=== PATIENT | female | born 1955 | race Caucasian/White ===

== ENCOUNTER 2020-07-14 08:11 | Outpatient (REF) | payer OTHER, SELFPAY ==
[2020-07-17 03:21] LABS: HPV mRNA E6/E7 rflx Not Detected (Not Detected)
== END 2020-07-14 08:12 | disposition home or self-care (01) ==
LOC: HO.LAB 08:11
PROVIDERS: PCP Internal Medicine; Visit Provider Advanced Practice Midwife
DX: Z01.419 Encounter for gynecological examination (general) (routine) without abnormal findings (principal); Z11.51 Encounter for screening for human papillomavirus (HPV)
CPT/HCPCS: 36415; 87624; 88142

== ENCOUNTER 2021-01-15 07:21 | Outpatient (REF) | payer OTHER, SELFPAY ==
[2021-01-15 08:25] LABS: MANUAL DIFF FLAG NO
[2021-01-15 08:32] LABS: Basophils Percent Auto 0.4 % (0-2); Eosinophils Absolute Auto 0.1 X10*3/uL (0.0-0.4); Eosinophils Percent Auto 1.5 % (0-4); Hematocrit 39.4 % (37-47); Hemoglobin 13.2 g/dl (12.0-16.0); Imm Gran Abs Auto 0.02 X10*3/uL (0.00-0.03); Imm Gran Pct Auto 0.4 % (0.0-0.4); Lymphocytes Absolute Auto 2.3 X10*3/uL (1.2-4.9); Lymphocytes Percent Auto 43.4 % (20-40); Mean Corpuscular HGB Conc 33.5 g/dl (31.0-35.0); Mean Corpuscular Hemoglobin 29.4 pg (27.0-33.0); Mean Corpuscular Volume 87.8 fL (80-98); Mean Platelet Volume 10.3 fL (9.4-12.3); Monocytes Absolute Auto 0.5 X10*3/uL (0.1-1.2); Monocytes Percent Auto 9.4 % (2-11); Neutrophils Absolute Auto 2.4 X10*3/uL (2.0-8.3); Neutrophils Percent Auto 44.9 % (45-73); Platelet Count 198 X10*3/uL (160-400); Red Blood Count 4.49 X10*6/uL (4.20-5.50); Red Cell Distribution Width 13.5 % (11.0-16.0); White Blood Count 5.3 X10*3/uL (4.8-10.8)
[2021-01-15 08:37] LABS: Estimated Average Glucose 120 mg/dL; Hemoglobin A1c % 5.8 %
[2021-01-15 09:07] LABS: Alanine Aminotransferase 19 U/L (0-31); Albumin Level 4.1 g/dL (3.5-5.0); Alkaline Phosphatase 91 U/L (39-117); Anion Gap 11 (12-20); Aspartate Amino Transferase 20 U/L (5-31); Bilirubin Total 0.5 mg/dL (0.0-1.0); Blood Urea Nitrogen 14 mg/dL (9-16); Calcium 8.9 mg/dL (8.4-10.2); Carbon Dioxide 24 mmol/L (22-29); Chloride 109 mmol/L (96-108); Cholesterol 193 mg/dL; Estimated Glomerular Filt Rate > 60; Glucose Random 99 mg/dL (60-115); HDL Cholesterol 43 mg/dL; LDL Cholesterol Calculated 129 mg/dl; Potassium 3.9 mmol/L (3.3-5.1); Sodium 140 mmol/L (135-145); Total Protein 7.2 g/dL (6.5-8.0); Triglycerides 106 mg/dL
[2021-01-15 09:19] LABS: Free T4 (Free Thyroxine) 0.89 ng/dL (0.71-1.85)
[2021-01-17 09:36] LABS: Folate 13.5 ng/mL (> or = 4.0); Vitamin B12 321 pg/mL (200-900)
== END 2021-01-15 07:22 | disposition home or self-care (01) ==
LOC: HO.LAB 07:21
PROVIDERS: PCP Internal Medicine; Visit Provider Internal Medicine
DX: E78.00 Pure hypercholesterolemia, unspecified (principal)
CPT/HCPCS: 36415; 80053; 80061; 82306; 82607; 82746; 83036; 84439; 84443; 85025

== ENCOUNTER 2021-06-01 08:10 | Outpatient (REF) | payer OTHER, SELFPAY ==
--- NOTE | ~2021-06-01 | XR_ITS ---
EXAMINATION: XR KNEE, LEFT CLINICAL INFORMATION: Left knee bursitis. COMPARISON: 12/06/2014 TECHNIQUE: AP, lateral, and both oblique views of the left knee. FINDINGS: Joint space narrowing is present in all 3 compartments with associated osteophytes, most pronounced medially. No fractures. Bones are osteopenic. No significant joint effusion. An enthesopathic spur is evident at the quadriceps tendon insertion on the patella. XR/XR knee LT 4V IMPRESSION: Moderate tricompartmental osteoarthritis, most pronounced in the medial compartment.
== END 2021-06-01 08:11 | disposition home or self-care (01) ==
LOC: HO.XRAY 08:10
PROVIDERS: PCP Internal Medicine; Visit Provider Internal Medicine
DX: M70.50 Other bursitis of knee, unspecified knee (principal)
CPT/HCPCS: 73564

== ENCOUNTER → 2021-07-15 07:54 | Outpatient (BNVA) | payer OTHER, SELFPAY | PROVIDERS: PCP Internal Medicine; Visit Provider Advanced Practice Midwife | DX: Z13.89 Encounter for screening for other disorder (principal) ==

== ENCOUNTER 2021-08-02 16:08 | Outpatient (REF) | payer OTHER, SELFPAY ==
--- NOTE | ~2021-08-02 | MM_ITS ---
EXAMINATION: MM SCREENING DIGITAL BREAST TOMOSYNTHESIS, BILATERAL CLINICAL INFORMATION: Screening. Asymptomatic. The lifetime risk of breast cancer based on the Tyrer-Cuzick Model is 5%. COMPARISON: Mammography: 01/12/2020, 10/03/2018, 07/07/2016 TECHNIQUE: Digital breast tomosynthesis is performed in both the craniocaudal and mediolateral oblique views along with computer-aided detection (CAD). Synthesized 2D images are generated from the tomosynthesis. FINDINGS: The breasts are heterogeneously dense, which may obscure small masses (ACR BI-RADS breast composition Category c). There are no significant masses, abnormal calcifications, or other abnormalities. Parenchymal pattern is similar to prior studies. There is no developing density or architectural abnormality. The axilla and skin contours are unremarkable. No significant changes. MM/MM tomosynthesis screening BI IMPRESSION: No mammographic evidence of malignancy. ASSESSMENT: BI-RADS 1: Negative RECOMMENDATION: Routine annual mammography screening. This patient's information was entered into a reminder system with a target due date for their next mammogram.
== END 2021-08-02 16:09 | disposition home or self-care (01) ==
LOC: HO.MAMMO 16:08
PROVIDERS: PCP Internal Medicine; Visit Provider Internal Medicine
DX: Z12.31 Encounter for screening mammogram for malignant neoplasm of breast (principal)
CPT/HCPCS: 77063; 77067

== ENCOUNTER 2021-09-16 15:12 | Outpatient (REF) | payer OTHER, SELFPAY ==
--- NOTE | ~2021-09-16 | XR_ITS ---
EXAMINATION: XR CHEST CLINICAL INFORMATION: Acute bronchitis COMPARISON: Previous chest x-ray October 2018 TECHNIQUE: 2 views of the chest were obtained. FINDINGS: No significant abnormality is noted involving the heart, lungs, mediastinum, bony thorax or soft tissues. XR/XR chest 2V IMPRESSION: Unremarkable 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
[2021-09-16 15:43] LABS: Binax Internal Control QC Valid; Binax Now Covid-19 Ag Negative (Negative)
== END 2021-09-16 15:13 | disposition home or self-care (01) ==
LOC: HO.HMGCX 15:12
PROVIDERS: Visit Provider Internal Medicine
DX: J06.9 Acute upper respiratory infection, unspecified (principal); J20.9 Acute bronchitis, unspecified
CPT/HCPCS: 71046; 87811

== ENCOUNTER 2022-01-04 08:22 | Outpatient (REF) | payer OTHER, SELFPAY ==
[2022-01-04 08:39] LABS: MANUAL DIFF FLAG NO
[2022-01-04 09:08] LABS: Basophils Percent Auto 0.3 % (0-2); Eosinophils Absolute Auto 0.1 X10*3/uL (0.0-0.4); Hematocrit 39.7 % (37.0-47.0); Hemoglobin 13.3 g/dl (12.0-16.0); Imm Gran Abs Auto 0.01 X10*3/uL (0.00-0.03); Imm Gran Pct Auto 0.2 % (0.0-0.4); Lymphocytes Absolute Auto 2.9 X10*3/uL (1.2-4.9); Lymphocytes Percent Auto 50.5 % (20-40); Mean Corpuscular HGB Conc 33.5 g/dl (31.0-35.0); Mean Corpuscular Hemoglobin 29.1 pg (27.0-33.0); Mean Corpuscular Volume 86.9 fL (80.0-98.0); Mean Platelet Volume 10.6 fL (9.4-12.3); Monocytes Absolute Auto 0.6 X10*3/uL (0.1-1.2); Monocytes Percent Auto 10.1 % (2-11); Neutrophils Absolute Auto 2.2 x10*3/uL (2.0-8.3); Neutrophils Percent Auto 37.9 % (45-73); Platelet Count 184 X10*3/uL (160-400); Red Blood Count 4.57 X10*6/uL (4.20-5.50); Red Cell Distribution Width 13.1 % (11.0-16.0); White Blood Count 5.7 X10*3/uL (4.8-10.8)
[2022-01-04 09:15] LABS: Estimated Average Glucose 117 mg/dL; Hemoglobin A1c % 5.7 %
[2022-01-04 09:46] LABS: Alanine Aminotransferase 24 U/L (0-31); Albumin Level 4.1 g/dL (3.5-5.0); Alkaline Phosphatase 90 U/L (39-117); Anion Gap 12 (12-20); Aspartate Amino Transferase 20 U/L (5-31); Bilirubin Direct 0.2 mg/dL (0.0-0.5); Bilirubin Total 0.5 mg/dL (0.0-1.0); Blood Urea Nitrogen 15 mg/dL (9-16); Carbon Dioxide 26 mmol/L (22-29); Chloride 106 mmol/L (96-108); Estimated Glomerular Filt Rate > 60; Glucose Random 90 mg/dL (60-115); Sodium 140 mmol/L (135-145); Total Protein 7.5 g/dL (6.5-8.0)
[2022-01-04 09:54] LABS: Free T4 (Free Thyroxine) 0.88 ng/dL (0.71-1.85); Thyroid Stimulating Hormone 1.39 uIU/mL (0.32-4.0); Vitamin D 25-OH Total 31.6 ng/mL (>30)
[2022-01-04 10:03] LABS: Folate 16.8 ng/mL (> or = 4.0); Vitamin B12 377 pg/mL (200-900)
== END 2022-01-04 08:23 | disposition home or self-care (01) ==
LOC: HO.LAB 08:22
PROVIDERS: PCP Internal Medicine; Visit Provider Internal Medicine
DX: E78.00 Pure hypercholesterolemia, unspecified (principal); R79.89 Other specified abnormal findings of blood chemistry; R73.02 Impaired glucose tolerance (oral)
CPT/HCPCS: 36415; 80053; 82248; 82306; 82607; 82746; 83036; 84439; 84443; 85025

== ENCOUNTER 2022-07-03 07:36 | Outpatient (REF) | payer OTHER, SELFPAY ==
--- NOTE | ~2022-07-03 | XR_ITS ---
EXAMINATION: X-RAY OF BOTH KNEES CLINICAL INFORMATION: 66-year-old female patient with pain in the right knee. COMPARISON: X-ray of the left knee on 06/01/2021. (Moderate tricompartmental osteoarthritis). TECHNIQUE: AP and lateral weightbearing views of both knees. FINDINGS: Both knees demonstrate moderate joint space narrowing and juxta-articular sclerosis involving the medial joint compartments worse on the left than right. Marginal hypertrophic spur formation is seen bilaterally. Both patellofemoral joints show degenerative changes and enthesophytes at the quadriceps insertions. There is no joint effusion. XR/XR knee RT 2V IMPRESSION: Osteoarthritis of both knees, slightly worse on the left than right.
--- NOTE | ~2022-07-03 | XR_ITS ---
EXAMINATION: X-RAY OF BOTH KNEES CLINICAL INFORMATION: 66-year-old female patient with pain in the right knee. COMPARISON: X-ray of the left knee on 06/01/2021. (Moderate tricompartmental osteoarthritis). TECHNIQUE: AP and lateral weightbearing views of both knees. FINDINGS: Both knees demonstrate moderate joint space narrowing and juxta-articular sclerosis involving the medial joint compartments worse on the left than right. Marginal hypertrophic spur formation is seen bilaterally. Both patellofemoral joints show degenerative changes and enthesophytes at the quadriceps insertions. There is no joint effusion. XR/XR knee LT 2V IMPRESSION: Osteoarthritis of both knees, slightly worse on the left than right.
[2022-07-03 07:46] LABS: MANUAL DIFF FLAG NO
[2022-07-03 08:15] LABS: Appearance Urine Clear; Color Urine Yellow; Glucose Urine UA Negative (Negative); Leukocyte Esterase Urine Small (1+) (Negative); Nitrite Urine Negative (Negative); Specific Gravity - Urine 1.015 (1.005-1.025); UMIC TRIGGER UA YES; Urine Blood Negative (Negative); Urine Ketones Negative (Negative); Urine Protein Negative (Neg-Trace)
[2022-07-03 08:20] LABS: Bacteria Urine Trace (None Seen); Hyaline Casts Urine 0-2 /LPF (0-2); RBC Urine 0-2 /HPF (0-2)
[2022-07-03 08:25] LABS: Basophils Percent Auto 0.6 % (0-2); Eosinophils Absolute Auto 0.1 X10*3/uL (0.0-0.4); Eosinophils Percent Auto 1.3 % (0-4); Hematocrit 41.8 % (37.0-47.0); Hemoglobin 13.7 g/dl (12.0-16.0); Imm Gran Abs Auto 0.01 X10*3/uL (0.00-0.03); Imm Gran Pct Auto 0.2 % (0.0-0.4); Mean Corpuscular HGB Conc 32.8 g/dl (31.0-35.0); Mean Corpuscular Hemoglobin 28.5 pg (27.0-33.0); Mean Corpuscular Volume 87.1 fL (80.0-98.0); Mean Platelet Volume 10.7 fL (9.4-12.3); Monocytes Absolute Auto 0.5 X10*3/uL (0.1-1.2); Monocytes Percent Auto 10.1 % (2-11); Neutrophils Absolute Auto 2.2 x10*3/uL (2.0-8.3); Neutrophils Percent Auto 45.8 % (45-73); Platelet Count 197 X10*3/uL (160-400); Red Cell Distribution Width 13.2 % (11.0-16.0); White Blood Count 4.8 X10*3/uL (4.8-10.8)
[2022-07-03 08:49] LABS: Alanine Aminotransferase 20 U/L (0-31); Albumin Level 4.1 g/dL (3.5-5.0); Alkaline Phosphatase 100 U/L (39-117); Anion Gap 12 (12-20); Aspartate Amino Transferase 18 U/L (5-31); Bilirubin Total 0.5 mg/dL (0.0-1.0); Blood Urea Nitrogen 18 mg/dL (9-16); Calcium 9.4 mg/dL (8.4-10.2); Carbon Dioxide 25 mmol/L (22-29); Chloride 108 mmol/L (96-108); Cholesterol 195 mg/dL; Estimated Glomerular Filt Rate > 60; Glucose Random 98 mg/dL (60-115); HDL Cholesterol 44 mg/dL; LDL Cholesterol Calculated 132 mg/dl; Potassium 4.5 mmol/L (3.3-5.1); Sodium 140 mmol/L (135-145); Total Protein 7.3 g/dL (6.5-8.0); Triglycerides 96 mg/dL; Uric Acid 4.9 mg/dL (2.4-5.7)
[2022-07-03 09:22] LABS: Folate 16.7 ng/mL (> or = 4.0); Free T4 (Free Thyroxine) 0.81 ng/dL (0.71-1.85); Thyroid Stimulating Hormone 2.47 uIU/mL (0.32-4.0); Vitamin B12 411 pg/mL (200-900); Vitamin D 25-OH Total 19.2 ng/mL (>30)
== END 2022-07-03 07:37 | disposition home or self-care (01) ==
LOC: HO.XRAY 07:36
PROVIDERS: PCP Internal Medicine; Visit Provider Internal Medicine
DX: M17.12 Unilateral primary osteoarthritis, left knee (principal); M25.561 Pain in right knee; E78.00 Pure hypercholesterolemia, unspecified
CPT/HCPCS: 36415; 73560; 80053; 80061; 81001; 82306; 82607; 82746; 84439; 84443; 84550; 85025

== ENCOUNTER 2022-07-12 07:39 | Outpatient (REF) | payer OTHER, SELFPAY ==
--- NOTE | ~2022-07-12 | XR_ITS ---
EXAMINATION: XR KNEE AP STANDING XR KNEE, LEFT XR KNEE, RIGHT CLINICAL INFORMATION: Knee pain COMPARISON: X-ray left knee from 06/01/2021 and x-ray bilateral knees from 12/08/2014 TECHNIQUE: AP bilateral standing view of the knees was obtained. [place] view the left knee. [place] view of the right knee. FINDINGS: Joint space narrowing and osteophyte formation is seen within the bilateral femoral tibial joints, more prominent within the medial compartments, consistent with moderate osteoarthritis. [place] views of the bilateral knees demonstrates osteophyte formation along the medial compartments of the bilateral patellofemoral joints. XR/XR knee RT 1V IMPRESSION: Moderate osteoarthritis. Findings have progressed compared to the prior exam
--- NOTE | ~2022-07-12 | XR_ITS ---
EXAMINATION: XR KNEE AP STANDING XR KNEE, LEFT XR KNEE, RIGHT CLINICAL INFORMATION: Knee pain COMPARISON: X-ray left knee from 06/01/2021 and x-ray bilateral knees from 12/08/2014 TECHNIQUE: AP bilateral standing view of the knees was obtained. [place] view the left knee. [place] view of the right knee. FINDINGS: Joint space narrowing and osteophyte formation is seen within the bilateral femoral tibial joints, more prominent within the medial compartments, consistent with moderate osteoarthritis. [place] views of the bilateral knees demonstrates osteophyte formation along the medial compartments of the bilateral patellofemoral joints. XR/XR knee LT 1V IMPRESSION: Moderate osteoarthritis. Findings have progressed compared to the prior exam
--- NOTE | ~2022-07-12 | XR_ITS ---
EXAMINATION: XR KNEE AP STANDING XR KNEE, LEFT XR KNEE, RIGHT CLINICAL INFORMATION: Knee pain COMPARISON: X-ray left knee from 06/01/2021 and x-ray bilateral knees from 12/08/2014 TECHNIQUE: AP bilateral standing view of the knees was obtained. [place] view the left knee. [place] view of the right knee. FINDINGS: Joint space narrowing and osteophyte formation is seen within the bilateral femoral tibial joints, more prominent within the medial compartments, consistent with moderate osteoarthritis. [place] views of the bilateral knees demonstrates osteophyte formation along the medial compartments of the bilateral patellofemoral joints. XR/XR knee standing BI IMPRESSION: Moderate osteoarthritis. Findings have progressed compared to the prior exam
== END 2022-07-12 07:40 | disposition home or self-care (01) ==
LOC: HO.HOSX 07:39
PROVIDERS: Visit Provider Physician Assistant
DX: M17.0 Bilateral primary osteoarthritis of knee (principal)
CPT/HCPCS: 73560; 73565; 99202

== ENCOUNTER → 2022-07-17 08:03 | Outpatient (BNVA) | payer OTHER, SELFPAY | PROVIDERS: Visit Provider Advanced Practice Midwife ==

== ENCOUNTER 2022-08-25 08:02 | Outpatient (REF) | payer OTHER, SELFPAY ==
--- NOTE | ~2022-08-25 | MM_ITS ---
EXAMINATION: MM SCREENING DIGITAL BREAST TOMOSYNTHESIS, BILATERAL CLINICAL INFORMATION: Screening. Asymptomatic. The lifetime risk of breast cancer based on the Tyrer-Cuzick Model is 5%. COMPARISON: Mammography: 08/02/2021, 01/12/2020, 10/03/2018, 07/07/2016, 03/15/2011 TECHNIQUE: Digital breast tomosynthesis is performed in both the craniocaudal and mediolateral oblique views along with computer-aided detection (CAD). Synthesized 2D images are generated from the tomosynthesis. FINDINGS: The breasts are heterogeneously dense, which may obscure small masses (ACR BI-RADS breast composition Category c). The left breast has focal asymmetric density anterior to mid 6:00 position under 1.5 cm representing change from prior studies. There is a prominent left axillary node on MLO view 20 cm from nipple. Patient will be recalled for additional imaging. The remainder of the bilateral breasts appear similar to prior studies. Right breast unremarkable. There are no abnormal calcifications. No skin thickening. MM/MM tomosynthesis screening BI IMPRESSION: Left: -Focal asymmetric density anterior-mid 6:00 representing change from prior studies. -Prominent left axillary node. Right: -No mammographic evidence of malignancy. ASSESSMENT: BI-RADS 0: Incomplete - Need Additional Imaging Evaluation RECOMMENDATION: 1. Additional views left breast (rolled CC x2, spot ML). 2. Targeted ultrasound left breast and axilla. 3. Radiology department staff will contact the patient for additional imaging. This patient's information was entered into a reminder system with a target due date for their next mammogram.
== END 2022-08-25 08:03 | disposition home or self-care (01) ==
LOC: HO.MAMMO 08:02
PROVIDERS: PCP Internal Medicine; Visit Provider Obstetrics & Gynecology
DX: Z12.31 Encounter for screening mammogram for malignant neoplasm of breast (principal)
CPT/HCPCS: 77063; 77067

== ENCOUNTER 2022-09-20 07:52 | Outpatient (REF) | payer OTHER, SELFPAY ==
--- NOTE | ~2022-09-20 | MM_ITS ---
EXAMINATION: MM DIAGNOSTIC DIGITAL BREAST TOMOSYNTHESIS, LEFT US DIAGNOSTIC ULTRASOUND BREAST, LEFT CLINICAL INFORMATION: Recall from screening for focal asymmetric density anterior inferior left breast with prominent left axillary node. TC score 5%. COMPARISON: Prior mammography exams including most recent 08/25/2022. TECHNIQUE: Digital breast tomosynthesis is performed. 2D images are generated from the tomosynthesis. The following views are obtained: Rolled CC x2, spot ML. Ultrasound of the left breast and left axillary is performed targeted to the areas of mammography concern. Grayscale imaging and color Doppler are performed without and with harmonics. FINDINGS: The breasts are heterogeneously dense, which may obscure small masses (ACR BI-RADS breast composition Category c). The additional views confirm irregular focal asymmetric density anterior inferior breast at least 1 cm in size with probable adjacent smaller satellite lesion. Ultrasound demonstrates a irregular heterogeneous solid mass 5:00 position retroareolar breast measuring approximately 1.6 x 1.2 cm. There is some scattered internal color-flow. No significant posterior shadowing. There are 2 adjacent similar appearing satellite lesions within 2 cm, measuring approximately 0.9 cm and 0.5 cm, respectively. Ultrasound left axilla confirms a 3 cm long node with thick cortex corresponding to the node on mammography. Results are discussed with the patient at time of visit. Ultrasound-guided core sampling of the left breast and left axillary node is recommended. Results and recommendation called to medical billing coordinator (Ann Marie) for Dr. Talbot on 09/20/2022. Results and recommendation called to nurse (AGNIESZKA Schneider) for Amy Weir CNM on 09/20/2022. MM/MM tomosynthesis added views L IMPRESSION: -Irregular hypoechoic mass 1.6 cm anterior inferior left breast with 2 smaller adjacent satellite lesions and left axillary adenopathy. ASSESSMENT: BI-RADS 4: Suspicious (subcategory 4C: High suspicion for malignancy) RECOMMENDATION: Ultrasound-guided core biopsy left breast mass and left axilla. This patient's information was entered into a reminder system with a target due date for their next mammogram.
== END 2022-09-20 07:53 | disposition home or self-care (01) ==
LOC: HO.MAMMO 07:52
PROVIDERS: PCP Internal Medicine; Visit Provider Advanced Practice Midwife
DX: R92.2 Inconclusive mammogram (principal)
CPT/HCPCS: 76642; 77061; 77065

== ENCOUNTER 2022-09-26 09:32 | Outpatient (REF) | payer OTHER, SELFPAY ==
--- NOTE | ~2022-09-26 | US_ITS ---
EXAMINATION: ULTRASOUND GUIDED CORE BIOPSY BREAST (TWO SITES), LEFT ULTRASOUND GUIDED CORE BIOPSY AXILLA, LEFT POST PROCEDURE DIGITAL MAMMOGRAM, LEFT CLINICAL INFORMATION: Irregular hypoechoic mass 1.6 cm anterior inferior left breast with adjacent satellite nodules and left axillary adenopathy. COMPARISON: Mammography 09/20/2022, 08/25/2022, 08/02/2021, left breast ultrasound 09/20/2022. FINDINGS: Proper informed consent is obtained from the patient after discussion of the procedure, potential risks and complications, and alternatives. Patient was given an opportunity for questions. The patient appeared to understand. The patient consented to the procedure and signed the consent form. LEFT BREAST, SPECIMEN A: LOCATION: Anterior inferior central left breast. GUIDANCE: Ultrasound-guided; aseptic technique. LESION: Irregular hypoechoic mass approximately 1.6 cm. APPROACH: Lateral medial. ANESTHESIA: 10 mL carbonated 1% lidocaine. DERMATOTOMY: Single skin yoshi dermatotomy performed. NEEDLE: 14-gauge Achieve core biopsy device with 13.5-gauge co-axial guide needle. CORES: 5. CLIP: HydroMARK; shape: open coil. LEFT BREAST, SPECIMEN B: New anesthesia and biopsy supplies are used. LOCATION: Anterior inferior central left breast approximately 2 cm from specimen A. GUIDANCE: Ultrasound-guided; aseptic technique. LESION: Irregular hypoechoic satellite mass approximately 1 cm. APPROACH: Lateral medial. ANESTHESIA: 7 mL carbonated 1% lidocaine. DERMATOTOMY: The same skin yoshi dermatotomy site from the first lesion is used to access the lesion for the second biopsy.. NEEDLE: 14-gauge Achieve core biopsy device with 13.5-gauge co-axial guide needle. CORES: 4. CLIP: HydroMARK; shape: butterfly. LEFT AXILLA SPECIMEN: New anesthesia and biopsy supplies are used. LOCATION: Left axilla, approximately 19 cm from nipple. GUIDANCE: Ultrasound-guided; aseptic technique. LESION: Enlarged axillary node with thick cortex. APPROACH: Oblique lateral medial. ANESTHESIA: 8 mL carbonated 1% lidocaine. DERMATOTOMY: A new skin yoshi dermatotomy is performed to allow for the second site of biopsy. . NEEDLE: 14-gauge Achieve core biopsy device with 13.5-gauge co-axial guide needle. CORES: 4. CLIP: HydroMARK; shape: barrel (closed coil). POST PROCEDURE DIGITAL MAMMOGRAM: The post biopsy mammogram is performed in separate room using separate digital mammography equipment from the biopsy procedure. CC, exaggerated CC, ML x2 views are obtained. The breasts are heterogeneously dense, which may obscure small masses (breast composition category: c). The 3 clip markers are in position. No gross hematoma. The patient tolerated the procedure well. No immediate complications. Home instructions reviewed with the patient. Final pathology results are pending. US/US breast ndl core bio ea add IMPRESSION: 1. Status post ultrasound-guided core biopsy left breast x 2 and left axilla. 2. Clips placed at each of the 3 sites. 3. Pathology pending. An addendum report will be issued.
[2022-09-26] MEDS: Sodium Bicarbonate 8.4% 50 MEQ/50 ML VIAL SUBCUT (13:48)
[2022-09-26] MEDS: Lidocaine HCl 1 % 20 ML VIAL 27 ML SUBCUT (13:48)
== END 2022-09-26 09:33 | disposition home or self-care (01) ==
LOC: HO.MAMMO 09:32
PROVIDERS: Radiology Diagnostic Radiology; PCP Internal Medicine; Visit Provider Surgery
DX: C50.512 Malignant neoplasm of lower-outer quadrant of left female breast (principal); C77.3 Secondary and unspecified malignant neoplasm of axilla and upper limb lymph nodes; Z17.0 Estrogen receptor positive status [ER+]
CPT/HCPCS: 19083; 19084; 19286; 36415; 38505; 76942; 77062; 77065; 88305; 88342; 88360; 88374; 88377; 99202; A4648

== ENCOUNTER → 2022-10-03 09:13 | Outpatient (BNVA) | payer OTHER, SELFPAY | PROVIDERS: PCP Internal Medicine; Visit Provider Surgery | DX: C50.912 Malignant neoplasm of unspecified site of left female breast (principal) | CPT/HCPCS: 99212 ==

== ENCOUNTER → 2022-10-19 10:00 | Outpatient (BNV) | payer OTHER, SELFPAY | PROVIDERS: PCP Internal Medicine; Visit Provider Internal Medicine Medical Oncology | DX: C50.812 Malignant neoplasm of overlapping sites of left female breast (principal) | CPT/HCPCS: 99204; 99212; 99213; 99214 ==

== ENCOUNTER → 2022-10-27 07:52 | Outpatient (REF) | payer OTHER, SELFPAY | LOC: HO.CARD 07:52 | PROVIDERS: PCP Internal Medicine; Visit Provider Internal Medicine Medical Oncology | DX: C50.919 Malignant neoplasm of unspecified site of unspecified female breast (principal) | CPT/HCPCS: 93306 ==

== ENCOUNTER 2022-11-06 08:49 | Day surgery (SDC) | payer OTHER, SELFPAY ==
--- NOTE | ~2022-11-06 | IR_ITS ---
PROCEDURE: IR INSERTION OF TUNNEL CATHETER CLINICAL INFORMATION: Left breast cancer COMPARISON: None available. TECHNIQUE: Procedure and risks and benefits including bleeding, infection and pneumothorax were discussed with the patient and informed consent was obtained. All elements of maximal sterile barrier technique followed including use of cap, mask, sterile gown, sterile gloves, a sterile full body drape and hand hygiene. Also followed skin preparation with 2% chlorhexidine for cutaneous antisepsis, and sterile ultrasound preparation with sterile gel and probe cover when applicable. The right neck and chest were prepped and draped in the usual sterile fashion. The skin and soft tissues were anesthetized with 1% lidocaine plain. Using ultrasound guidance and a 5 Ethiopian micropuncture system, right internal jugular vein access was obtained. Over an 018 wire, a 5 Ethiopian dilator was positioned in the SVC. The skin and soft tissues of the right upper anterior chest were anesthetized with 1% lidocaine. A small incision was made. A subcutaneous pocket was created using blunt dissection. Subcutaneous tunnel from the chest to the neck incision was anesthetized with 1% lidocaine plain. Using a tunneler, a 6.6 Ethiopian single-lumen catheter was tunneled from the chest to the neck incision. The catheter was attached to the port. The port and catheter were flushed. The port was positioned in the subcutaneous pocket and secured using 2 2.0 nonabsorbable sutures. An 035 guidewire was advanced through the 5-Ethiopian dilator into the IVC. The 5 Ethiopian dilator was exchanged for a 7 Ethiopian peel-away sheath. Using bent wire technique, catheter length was estimated and the catheter was cut. Catheter length is 21 cm. Catheter was fed centrally through the peel-away sheath. Catheter tip is at the cavoatrial junction. The neck incision was closed using a 4-0 absorbable subcuticular suture. The chest incision was closed using four 3-0 absorbable interrupted sutures followed by a running 4-0 absorbable subcuticular suture. Real-time ultrasound guidance was used to document vein patency and for needle entry. A formal ultrasound picture was recorded. The patient received Versed 1 mg and fentanyl 50 mcg and Kefzol 2 g intravenously during the procedure. Total sedation time was 46 minutes. Conscious sedation was provided by a registered nurse under my direct supervision using continuous hemodynamic monitoring. Total [id number] patient contact time was 34 minutes. Fluoroscopy time: 0.2 minutes DAP: 18 CG Y per centimeter squared FINDINGS: There is a right single lumen 6.6 Ethiopian single-lumen Dignity Port-A-Cath with tip projecting over the cavoatrial junction. IR/IR cvc insert tunnel w prt/bioassayist IMPRESSION: Right internal jugular Port-A-Cath placement.
[2022-11-06 09:26] VITALS: BMI 32.4
[2022-11-06 09:40] LABS: Basophils Percent Auto 0.4 % (0-2); Eosinophils Absolute Auto 0.1 X10*3/uL (0.0-0.4); Eosinophils Percent Auto 1.7 % (0-4); Hematocrit 40.8 % (37.0-47.0); Hemoglobin 13.6 g/dl (12.0-16.0); Imm Gran Abs Auto 0.01 X10*3/uL (0.00-0.03); Imm Gran Pct Auto 0.2 % (0.0-0.4); Lymphocytes Absolute Auto 2.8 X10*3/uL (1.2-4.9); MANUAL DIFF FLAG NO; Mean Corpuscular HGB Conc 33.3 g/dl (31.0-35.0); Mean Corpuscular Hemoglobin 29.1 pg (27.0-33.0); Mean Corpuscular Volume 87.2 fL (80.0-98.0); Mean Platelet Volume 9.9 fL (9.4-12.3); Monocytes Absolute Auto 0.5 X10*3/uL (0.1-1.2); Monocytes Percent Auto 9.7 % (2-11); Platelet Count 192 X10*3/uL (160-400); Red Blood Count 4.68 X10*6/uL (4.20-5.50); White Blood Count 5.5 X10*3/uL (4.8-10.8)
[2022-11-06 09:47] LABS: Prothrombin Time 11.3 SEC (10.0-13.1)
[2022-11-06 09:50] LABS: Partial Thromboplastin Time 33.5 SEC (26.0-36.4)
[2022-11-06] MEDS: Heparin Sodium,Porcine Flush 500 UNIT/5 ML SYRINGE IVFLUSH (11:37)
[2022-11-06] MEDS: Lidocaine HCl 1%/Epi 1:100,000 10 ML VIAL INFILTRATI (11:38)
[2022-11-06] MEDS: Lidocaine HCl 1 % MPF 2 ML VIAL 6 ML INFILTRATI (11:38)
[2022-11-06 12:15] VITALS: BP 146/76; PULSE 63; RESP 14; TEMP 37.2; O2SAT 96
[2022-11-06 12:30] VITALS: BP 122/76; PULSE 63; RESP 16; O2SAT 96
[2022-11-06 12:45] VITALS: BP 138/72; PULSE 63; RESP 16; O2SAT 97
[2022-11-06 13:00] VITALS: BP 144/80; PULSE 73; RESP 16; TEMP 37.3; O2SAT 97
== END 2022-11-06 13:12 | disposition home or self-care (01) ==
LOC: HO.SSS 08:50
PROVIDERS: Radiology Diagnostic Radiology; PCP Internal Medicine; Visit Provider Radiology Diagnostic Radiology
DX: Z45.2 Encounter for adjustment and management of vascular access device (principal); C50.512 Malignant neoplasm of lower-outer quadrant of left female breast; Z17.0 Estrogen receptor positive status [ER+]; F41.1 Generalized anxiety disorder; E78.00 Pure hypercholesterolemia, unspecified; Z79.899 Other long term (current) drug therapy
CPT/HCPCS: 36415; 36561; 85025; 85610; 85730; 99152; 99153; C1769; C1788; J0690; J1642; J2250; J3010

== ENCOUNTER → 2022-11-06 10:14 | Outpatient (BNV) | payer OTHER, SELFPAY | PROVIDERS: PCP Internal Medicine; Visit Provider Radiology Diagnostic Radiology | DX: D05.02 Lobular carcinoma in situ of left breast (principal) | CPT/HCPCS: 36561; 76937 ==

== ENCOUNTER 2022-11-10 08:07 | Outpatient (AMB) | payer OTHER, SELFPAY ==
--- NOTE | 2022-11-10 08:22 | AM.OFFWIN_ITS ---
Intake Vital Signs 11/10/22 08:24 BP 130/90 H Blood Pressure Location Rt brachial Position Sitting Pulse 80 Pulse Source Pulse Oximeter Pulse Oximetry (%) 98 Oxygen Delivery Method Room Air Intake Visit Reasons: EP help changing bandages (lobby) Intake Note: Patient here to have bandages changed. Patient Tobacco Use Status: Never used Tobacco Allergies seafood Allergy (Mild, Verified 11/10/22 08:24) Swelling ephedrine [From Primatene] Adverse Reaction (Severe, Verified 11/10/22 08:24) Shortness of Breath/Asthma Attack diphenhydramine [From Benadryl] Adverse Reaction (Intermediate, Verified 11/10/22 08:24) Shortness of Breath shellfish derived Adverse Reaction (Mild, Verified 11/10/22 08:24) Muscle Pain HPI HPI Comments History of Present Illness Details This is a 66-year-old female who presents to the office today for a wound check. Patient states she had a PermCath placed 3 days ago. Her helps her take about the monitor here yesterday in some of the bandages fell off. She is here requesting help to replace bandages. [facility] Medical History Allergic rhinitis Anxiety Asthma Fatty liver Gallbladder polyp Hypercholesterolemia Lactose intolerance Lumbar degenerative disc disease Obesity (BMI 30-39.9) Osteoarthritis of knee Osteopenia Overweight (BMI 25.0-29.9) Vitamin D deficiency Surgical History History of hysterectomy, supracervical Family History Father Diabetes Mother No problems noted. 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 Sexual orientation: Straight/Heterosexual Gender identity: Female Cognitive needs: No Hearing needs: No Vision needs: Yes Female Reproductive History Menstrual Age of Menarche: 15 Review of Systems Const All systems reviewed & are unremarkable except as noted in HPI and below Eyes Reports no additional complaints ENT Reports no additional complaints Card Reports no additional complaints Resp Reports no additional complaints GI Reports no additional complaints Reports no additional complaints Musc Reports no additional complaints Skin/Breast Reports wounds Neuro Reports no additional complaints Psych Reports no additional complaints Endo Reports no additional complaints Darwin/Lymph Reports no additional complaints Aller/Immun Reports no additional complaints Physical Exam Vital Signs: Last Vital Signs Pulse 80 11/10/22 08:24 BP 130/90 H 11/10/22 08:24 Pulse Ox 98 11/10/22 08:24 Oxygen Delivery Method Room Air 11/10/22 08:24 Const General: cooperative and no acute distress Orientation/consciousness: patient oriented x3 HEENT Head: Yes normal to inspection Ears: hearing grossly normal bilaterally General nose exam: Normal external nose present Face and sinus: Yes normal facial exam Mouth: Normal oral and palatal mucosa present Chest Other: There are 2 incisions to the right anterior chest wall with Steri-Strips in place. These incisions are clean dry and intact. No evidence of purulent drainage or surrounding erythema. Cardio Rate: regular rate Rhythm: regular rhythm GI Inspection: Yes normal to inspection Auscultation: normal bowel sounds Skin Trauma: laceration Neuro General: patient oriented x3 Assessment & Plan Assessment & Plan (1) Visit for wound check: Code(s): Z51.89 - Encounter for other specified aftercare Plan This is a 66-year-old female presenting to the office today for wound check. Patient had a PermCath placed 4 days ago and some of the bandages fell off after taking about last night. Patient requesting help with replacing the bandages. Patient Steri-Strips are in place. Her wounds are clean, dry, and intact without evidence of purulence drainage or erythema. The old gauze and Tegaderm were removed and replaced with new Gauze and new Tegaderm. Patient advised to follow-up here for any drainage. Patient advised to keep the area dry. Medications: Discontinued gabapentin 300 mg PO DAILY 90 days 90 caps 3RF montelukast 10 mg PO DAILY 90 caps 2RF Coding Level of Care Code Est Pt Level 3 (68108) Diagnoses Visit for wound check Z51.89
[2022-11-10 08:24] VITALS: BP 130/90; PULSE 80; O2SAT 98
== END 2022-11-10 09:17 | disposition home or self-care (01) ==
PROVIDERS: PCP Internal Medicine; Visit Provider Physician Assistant Medical
DX: Z51.89 Encounter for other specified aftercare (principal)
CPT/HCPCS: 99213

== ENCOUNTER 2022-11-18 10:57 | Outpatient (REF) | payer OTHER, SELFPAY ==
--- NOTE | ~2022-11-18 | MR_ITS ---
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 COMPARISON: Biopsy images 09/26/2022 TECHNIQUE: Imaging was performed with a dedicated breast coil. Prior to the administration of contrast, bilateral axial T1 and bilateral axial T2 weighted sequences were obtained. After the uneventful administration of?9 mL of Gadavist, dynamic contrast-enhanced VIBRANT series through the breasts in the axial plane were performed. Subtracted images were performed and reviewed. A delayed sagittal sequence through both breasts was acquired. Additionally, CAD post-processing, including maximum intensity projections, 3-D reconstructions and kinetic analysis, were performed an independent workstation and reviewed by the interpreting radiologist is a portion of this exam. FINDINGS: The patient's fibroglandular tissue demonstrates moderate background enhancement. LEFT BREAST: In the 6:00 position, 4.5 cm from the nipple, there is an irregular mass with biopsy clip artifact corresponding to the recently diagnosed malignancy measuring 1.5 (AP) by 1.4 (transverse) by 1.3 (CC) CM. The closest skin margin is inferior at a distance of 2.1 cm. The distance to the pectoralis fashion a is 7. 6:00 PM. (Image 66, series 100). The kinetics are predominately type II or plateau-type enhancement. Approximately 1.5 cm anterior to the known malignancy there is a second area of suspicious enhancement measuring at least 1.2 cm located at 5:00, 3.2 cm from the nipple (image 72, series 100). This finding most likely corresponds to the solid mass demonstrated on the recent diagnostic ultrasound evaluation labeled 7:00, one CM from the nipple. The kinetics are mixed including type I and type II enhancement. Additional foci of enhancement just medial to this area are also suspicious for other areas of malignancy. A rounded satellite lesion located lateral to the larger area of enhancement measuring 4 mm in size is also documented on the recent ultrasound evaluation. When the additional areas of enhancement are included with the main area of known malignancy in the total area of involvement measures at least 3.5 cm in size. The expected transverse dimension is 3.1 cm. The most anterior area of suspicious enhancement is located approximately 2 cm from the nipple. No other abnormal enhancement elsewhere within the left breast. RIGHT BREAST: Evaluation is limited by motion artifact. No definite suspicious masslike or non-masslike enhancement. No abnormal skin thickening or nipple retraction. No abnormal architectural distortion. Review of the T2 weighted images demonstrates no fibrocystic changes or dilated ducts. Review of kinetic images reveals no additional findings. There is no suspicious right-sided internal mammary chain or axillary adenopathy. Abnormal known metastatic left axillary lymph node demonstrated measuring up to 2.1 cm in size. No other definite morphologically abnormal left axillary lymph nodes. Limited views of the chest and abdomen are unremarkable. MR/MR breast BI wo/w con IMPRESSION: 1. Known left breast cancer, 6:00 position with additional areas of suspicious enhancement located anterior to the index malignancy. If breast conservation treatment is planned, consider bracketed wire localization using ultrasound to ensure inclusion of anterior areas of abnormal enhancement. If neoadjuvant chemotherapy is planned consider clip placement to the largest area of enhancement at 5:00, one CM from the nipple. 2. No convincing MRI evidence of malignancy within the contralateral right breast. 3. Known metastatic left axillary lymph node. ASSESSMENT: LEFT BREAST: BI-RADS 1-Negative RIGHT BREAST: B-RADS 6 - Known Malignancy - Appropriate action should be taken. RECOMMENDATIONS: Appropriate action.
== END 2022-11-18 10:58 | disposition home or self-care (01) ==
LOC: HO.MRI 10:57
PROVIDERS: PCP Internal Medicine; Visit Provider Internal Medicine Medical Oncology
DX: C50.912 Malignant neoplasm of unspecified site of left female breast (principal)
CPT/HCPCS: 77049; A9585

== ENCOUNTER → 2023-02-07 07:51 | Outpatient (REF) | payer OTHER, SELFPAY ==
--- NOTE | 2023-02-07 07:55 | CA_ITS ---
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 The calculated ejection fraction is 59% by biplane method. Findings Procedure Information Contrast agent, definity, is being given per protocol without apparent complications. Left Ventricle Normal left ventricular cavity size. There is moderately increased left ventricular wall thickness. The left ventricular systolic function is normal. The calculated ejection fraction is 59% by biplane method. There is no evidence of regional wall motion abnormalities. Venous The inferior vena cava is normal in size and collapses greater than 50% with inspiration. Prior Study Comparison No significant change compared to prior study dated: 10/27/2022. Measurements 2D Linear Measurements IVSd: 1.34 0.6-0.9/0.6-1.0 cm LVIDd: 4.28 3.9-5.3/4.2-5.9 cm LVIDd Index: 2.42 2.4-3.2/2.2-3.1 cm/m2 LVIDs: 2.72 2.0-3.6 cm LVPWd: 1.29 0.7-1.1 cm LV Mass: 261.60 67-162/88-224 g LV Mass Index: 147.80 43-95/49-115 g/m2 LVOT Diam: 2.00 3.0+(-)1.3 cm 2D Systolic Function EF 4C: 59.40 >55% EF 2C: 59.40 >55% EF BiP: 58.60 >55% LVOT LVOT Pk Andrew: 0.97 LVOT Mn Andrew: 0.60 LVOT VTI: 0.17 LVOT Pk Grad: 4.00 LVOT Mn Grad: 2.00 LVOT Diam: 2.00 LVOT Area: 3.14 Updated in Other Vendor System with Status of Final Devin Brady MD electronically signed on 02/09/2023 10:28:47 AM with status of Final
== END ==
LOC: HO.CARD 07:51
PROVIDERS: PCP Internal Medicine; Visit Provider Internal Medicine Medical Oncology
DX: C50.919 Malignant neoplasm of unspecified site of unspecified female breast (principal)
CPT/HCPCS: 93308; Q9957

== ENCOUNTER → 2023-02-07 07:55 | Outpatient (BNV) | payer OTHER, SELFPAY | PROVIDERS: PCP Internal Medicine; Visit Provider Internal Medicine | DX: C50.919 Malignant neoplasm of unspecified site of unspecified female breast (principal); Z51.81 Encounter for therapeutic drug level monitoring | CPT/HCPCS: 93308 ==

== ENCOUNTER 2023-03-01 14:26 | Outpatient (REF) | payer OTHER, SELFPAY ==
--- NOTE | ~2023-03-01 | US_ITS ---
EXAMINATION: US DIAGNOSTIC ULTRASOUND BREAST, LEFT CLINICAL INFORMATION: Evaluate left breast tumor burden status post neoadjuvant chemotherapy. COMPARISON: 09/20/2022. TECHNIQUE: Ultrasound of the breast is performed with real-time do scale imaging and color Doppler. FINDINGS: In the anterior aspect of the right breast at the 5:00 axis, 1 cm from the nipple, there has been significant decrease in the size of the irregular tumor mass, which no measures approximately 1.3 cm in diameter at the level of the biopsy clip (previously 0.7 x 1.2 cm), and just abutting the stellate aspect measures 9 x 9 mm in diameter (previously 1.3 x 1.3 cm). The axillary metastasis has significantly decreased in size as well, currently measuring 1.0 x 0.8 x 1.2 cm, (previously measuring approximately 3.4 x 1.5 x 1.8 cm). No new abnormalities are noted within the left breast parenchyma. Results are discussed with the patient at time of visit. US/US breast LT limited mamm only IMPRESSION: Significant decrease in size in all 3 sites of tumor involvement as detailed. Continues surgical and oncological management recommended. ASSESSMENT: BI-RADS 6: Known Biopsy-Proven Malignancy RECOMMENDATION: 1. Patient should be managed based on the clinical impression.
== END 2023-03-01 14:27 | disposition home or self-care (01) ==
LOC: HO.MAMMO 14:26
PROVIDERS: PCP Internal Medicine; Visit Provider Internal Medicine Medical Oncology
DX: Z85.3 Personal history of malignant neoplasm of breast (principal); Z92.21 Personal history of antineoplastic chemotherapy
CPT/HCPCS: 76642

== ENCOUNTER → 2023-03-01 14:30 | Outpatient (BNV) | payer OTHER, SELFPAY | PROVIDERS: PCP Internal Medicine; Visit Provider Radiology Diagnostic Radiology | DX: N63.14 Unspecified lump in the right breast, lower inner quadrant (principal) | CPT/HCPCS: 76642 ==

== ENCOUNTER 2023-03-13 08:39 | Outpatient (AMB) | payer OTHER, SELFPAY ==
--- NOTE | 2023-03-13 08:45 | MHC.OFFVIS ---
Intake Vital Signs 03/13/23 08:53 Height 5 ft 5 in Weight 150 lb BMI 25.0 BP 128/78 Blood Pressure Location Rt brachial Position Sitting Pulse 86 Intake Visit Reasons: L breast cancer follow up Intake Note: Patient here for Lt breast f/u. Reports recent Lt breast US on 03-01-23. Patient denies changes with breast. Dr. Lott recently checked breasts and noticed no changes, lumps or concerns. Still under going treatment. 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 She would like to discuss surgical options. Meantime, patient is completing her 6 cycle of her current chemotherapy. She has had someone difficult time with her therapies. She has no breast issues or complaints. [facility] Medical History Obesity (BMI 30-39.9) Osteopenia Gallbladder polyp Anxiety Osteoarthritis of knee Overweight (BMI 25.0-29.9) Fatty liver Lumbar degenerative disc disease Vitamin D deficiency Hypercholesterolemia Lactose intolerance Allergic rhinitis Asthma Surgical History History of hysterectomy, supracervical Family History Father Diabetes Mother No problems noted. 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 Left axilla demonstrates what I think is a deep central palpable lymph node. This was present before. Assessment & Plan Assessment & Plan (1) Breast cancer: Comment: September 2022Invasive ductal carcinoma, grade 3, with lobular features. Code(s): C50.919 - Malignant neoplasm of unspecified site of unspecified female breast (2) Axillary lymphadenopathy: Code(s): R59.0 - Localized enlarged lymph nodes Plan Present, I will discuss with oncologist if patient will undergo more restaging prior to consideration for surgical evaluation. She had a recent breast ultrasound was demonstrated significant tumor response. All questions were answered. Patient will see me based on oncologic input. Coding Level of Care Code Est Pt Level 4 (83121) Diagnoses Breast cancer C50.919 Axillary lymphadenopathy R59.0
[2023-03-13 08:53] VITALS: BP 128/78; PULSE 86; BMI 25.0
== END 2023-03-13 09:20 | disposition home or self-care (01) ==
PROVIDERS: PCP Internal Medicine; Referring Provider Internal Medicine Medical Oncology; Visit Provider Surgery
DX: C50.919 Malignant neoplasm of unspecified site of unspecified female breast (principal); R59.0 Localized enlarged lymph nodes
CPT/HCPCS: 99214

== ENCOUNTER → 2023-03-13 08:39 | Outpatient (BNVA) | payer OTHER, SELFPAY | PROVIDERS: PCP Internal Medicine; Referring Provider Internal Medicine Medical Oncology; Visit Provider Surgery | DX: C50.919 Malignant neoplasm of unspecified site of unspecified female breast (principal); R59.0 Localized enlarged lymph nodes | CPT/HCPCS: 99212 ==

== ENCOUNTER 2023-03-27 08:44 | Outpatient (REF) | payer OTHER, SELFPAY ==
--- NOTE | ~2023-03-27 | MM_ITS ---
EXAMINATION: BONE DENSITOMETRY CLINICAL INDICATION: Osteopenia. COMPARISON: Baseline BD dated 10/03/2018. TECHNIQUE: Using a [employer] DXA System (software version: 13.1) manufactured by [employer], dual-energy x-ray absorptiometry was performed of the lumbar spine and left hip. The images are of good technical quality. Summary results are attached. FINDINGS: LEFT FEMUR, NECK: Current: BMD 0.861 g/cm2, Z-score 0.1, T-score -1.3, osteopenia. Baseline: BMD 0.838 g/cm2. LEFT FEMUR, TOTAL: Current: BMD 0.832 g/cm2, Z-score -0.3, T-score -1.4, osteopenia, 1.8% decrease from baseline (<5% change is not significant). Baseline: BMD 0.847 g/cm2. AP SPINE L1-L4: Current: BMD 0.981 g/cm2, Z-score -0.2, T-score -1.7, osteopenia, 10.8% decrease from baseline (<5% change is not significant). Baseline: BMD 1.100 g/cm2. IDENTIFIED RISK FACTORS: Early menopause, hysterectomy, secondary osteoporosis. HISTORY OF FRACTURE: None listed. MEDICATIONS: Multivitamin. MM/XR DEXA axial skeleton IMPRESSION: 1. DIAGNOSIS: Osteopenia based on the lowest T-score value of -1.7 in the lumbar spine applying World Health Organization criteria. 2. 10-YEAR FRACTURE RISK PREDICTION, FRAX: Major osteoporotic fracture (clinical spine, forearm, hip or shoulder) 4.7%. Hip fracture 0.4%. 3. Treatment Recommendations: NOF guidelines recommend consideration for treatment in postmenopausal women and men age 50 and older presenting with the following: -A hip or vertebral (clinical or morphometric) fracture. -T-score less than or equal to -2.5 at the femoral neck or spine after appropriate evaluation to exclude secondary causes. -Low bone mass at the hip or spine and a 10-year fracture probability by FRAX of greater than or equal to 3% for hip fracture or greater than or equal to 20% for major osteoporotic fracture based on the [place] adapted WHO algorithm. 4. Other Recommendations: All treatment decisions require clinical judgment and consideration of individual patient factors, including patient preferences, comorbidities, previous drug use, risk factors not captured in the FRAX model (e.g. frailty, falls, vitamin D deficiency, increased bone turnover, interval significant decline in bone density) and possible under or overestimation of fracture risk by FRAX. Additional medical evaluation for secondary cause of low bone mineral density may be appropriate. FUTURE SCAN RECOMMENDATION: People with diagnosed cases of osteoporosis or at high risk for fracture should have regular bone mineral density tests. For patients eligible for Medicare, routine testing is allowed once every 2 years. The testing frequency can be increased to one year for patients who have rapidly progressing disease, those who are receiving or discontinuing medical therapy to restore bone mass, or have additional risk factors.
== END 2023-03-27 08:45 | disposition home or self-care (01) ==
LOC: HO.MAMMO 08:44
PROVIDERS: PCP Internal Medicine; Visit Provider Internal Medicine Medical Oncology
DX: Z13.820 Encounter for screening for osteoporosis (principal); M85.80 Other specified disorders of bone density and structure, unspecified site; Z78.0 Asymptomatic menopausal state
CPT/HCPCS: 77080

== ENCOUNTER → 2023-05-22 08:01 | Outpatient (REF) | payer OTHER, SELFPAY ==
--- NOTE | 2023-05-22 08:04 | CA_ITS ---
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 There is mildly increased left ventricular wall thickness. The visually estimated ejection fraction is between 60-65%. Spectral Doppler is indicative of an impaired relaxation filling pattern. E/E prime ratio is <8, consistent with normal filling pressures. Evidence suggests grade I (mild) diastolic dysfunction. Peak GLS is -18.3%, within normal limits. Prior Study Comparison No significant change compared to prior study dated: 02/07/2023. delay in reporting due to technical issues Measurements 2D Linear Measurements IVSd: 1.21 0.6-0.9/0.6-1.0 cm LVIDd: 4.45 3.9-5.3/4.2-5.9 cm LVIDd Index: 2.59 2.4-3.2/2.2-3.1 cm/m2 LVIDs: 3.02 2.0-3.6 cm LVPWd: 1.22 0.7-1.1 cm LV Mass: 247.04 67-162/88-224 g LV Mass Index: 143.63 43-95/49-115 g/m2 2D Systolic Function EF 4C: 60.10 >55% EF 2C: 66.00 >55% EF BiP: 63.90 >55% Mitral Valve MV Pk E: 0.52 MV PK A: 0.65 MV Decel Time: 209.00 E/A: 0.80 E'Lateral: 9.25 E'Medial: 6.31 E/E' Med: 8.20 E/E' Lat: 5.60 PHT: 61.00 MVA PHT: 3.61 Decel [place]: 2.48 Diastolic Function MV Pk E: 0.52 MV Pk A: 0.65 E/A: 0.80 E'Medial: 6.31 E/E' Med: 8.20 E' Laterial: 9.25 E/E' Lat: 5.60 Tricuspid Valve TR Pk Andrew: 2.00 TR Pk Grad: 16.00 RA Press: 3.00 RVSP: 19.00 Updated in Other Vendor System with Status of Final Nate Mendoza MD electronically signed on 05/24/2023 2:06:26 PM with status of Final
== END ==
LOC: HO.CARD 08:01
PROVIDERS: PCP Internal Medicine; Visit Provider Internal Medicine Medical Oncology
DX: C50.919 Malignant neoplasm of unspecified site of unspecified female breast (principal)
CPT/HCPCS: 93308; 93356

== ENCOUNTER → 2023-05-22 08:04 | Outpatient (BNV) | payer OTHER, SELFPAY | PROVIDERS: PCP Internal Medicine; Visit Provider Internal Medicine Cardiovascular Disease | DX: I51.9 Heart disease, unspecified (principal) | CPT/HCPCS: 93308 ==

== ENCOUNTER 2023-06-15 15:59 | Outpatient (AMB) | payer OTHER, SELFPAY ==
[2023-06-15 16:10] VITALS: BP 134/78; PULSE 72; O2SAT 98; BMI 26.1
--- NOTE | 2023-06-15 16:10 | MHC.PC.OV ---
Vital Signs 06/15/23 16:10 Height 5 ft 5 in Weight 157 lb 0.6 oz BMI 26.1 BP 134/78 Blood Pressure Location Lt brachial Position Sitting Pulse 72 Pulse Source Pulse Oximeter Pulse Oximetry (%) 98 Oxygen Delivery Method Room Air Intake Visit Reasons: physical Intake Note: Patient is here today for a physical. [employer] Other Ranks Required: No Allergies seafood Allergy (Mild, Verified 06/15/23 16:11) Swelling ephedrine [From Primatene] Adverse Reaction (Severe, Verified 06/15/23 16:11) Shortness of Breath/Asthma Attack diphenhydramine [From Benadryl] Adverse Reaction (Intermediate, Verified 06/15/23 16:11) Shortness of Breath shellfish derived Adverse Reaction (Mild, Verified 06/15/23 16:11) Muscle Pain Medication List - Last Reconciled 06/15/23 by Luna Talbot MD anastrozole (Arimidex) 1 mg PO DAILY dexamethasone 4 mg PO BID duloxetine 20 mg PO BID fluticasone propionate 50 mcg/actuation (Flonase Allergy Relief) 2 sprays intranasal DAILY gabapentin 300 mg PO BEDTIME hydroxyzine HCl 25 mg PO TID levalbuterol tartrate 45 mcg/actuation (Xopenex HFA) 2 puffs inhalation Q4-6H loperamide (Imodium A-D) 2 mg PO Q6H PRN loratadine 10 mg PO NEEDED PRN Magic Mouthwash Diphen/Lido/Antacid 1:1:1 10 mL PO QID montelukast 10 mg PO BEDTIME naproxen 500 mg PO Q12H PRN potassium chloride ER 20 mEq PO DAILY Tobacco use date assessed: 06/15/23 Fall risk assessment: No Falls in past year Last assessed Fall Risk: 06/15/23 Dental Screening Dental Screen Date: 06/15/23 Did you have a dental visit in the last 12 months?: No Did you have a dental problem in the last 6 months where you did not have access to dental care?: No HPI physical HPI Details 67-year-old female with a history of breast cancer (September 2022) hypercholesterolemia asthma impaired glucose tolerance, knee osteoarthritis coming in for physical exam. Last seen in May 2022. Patient's colonoscopy was last February 2019 2 for this year bone density September 2018. Patient follows up with Hematology-Oncology seen in June 15 on chemotherapy patient has complained of pruritus after starting the Arimidex MRI pending. and was given Atarax.. Echocardiogram done May 2023Normal LV systolic function with mild LVH with grade 1 diastolic dysfunctio [facility] Medical History (Updated 06/15/23 @ 17:10 by Luna Talbot MD) Knee pain, bilateral Osteoarthritis of left knee Right serous otitis media Anxiety Essential tremor Acute bronchitis Breast cancer screening by mammogram Anserine bursitis Obesity (BMI 30-39.9) Osteopenia Gallbladder polyp Anxiety Osteoarthritis of knee Overweight (BMI 25.0-29.9) Fatty liver Lumbar degenerative disc disease Vitamin D deficiency Hypercholesterolemia Lactose intolerance Allergic rhinitis Asthma Surgical History History of hysterectomy, supracervical Family History Father Diabetes Mother No problems noted. 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 1. Little interest or pleasure in doing things: several days (pt has had on going depression/anxiety for 1 year since finding out about BC) 2. Feeling down, depressed, or hopeless: several days 3. Trouble falling or staying asleep, or sleeping too much: not at all 4. Feeling tired or having little energy: not at all 5. Poor appetite or overeating: not at all 6. Feeling bad about yourself - or that you are a failure or have let yourself or your family down: not at all 7. Trouble concentrating on things, such as reading the newspaper or watching television: not at all 8. Moving or speaking so slowly that other people could have noticed. Or the opposite - being so fidgety or restless that you have been moving around a lot more than usual: not at all 9. Thoughts that you would be better off or of hurting yourself in some way: not at all Total score: 2 Depression Screening Interpretation: Negative Depression Screening Done: Yes Source: Developed by Drs. Barak Hartmann, Lubna Yoder, Garth Jose and colleagues, with an educational marisa from [employer]. Thrive Questionnaire Date Thrive assessed: 06/15/23 AUDIT C Alcohol Use Questionnaire (AUDIT-C) 1. How often do you have a drink containing alcohol?: Monthly or less 2. How many drinks containing alcohol do you have on a typical day when you are drinking?: 1 or 2 3. How often do you have six or more drinks on one occasion?: Never Total Score: 1 CIRO-7 AMB Questionnaire CIRO-7 Date CIRO - 7 assessed: 06/15/23 (pt has had on going depression/anxiety for 1 year since finding out about BC) Feeling nervous, anxious, or on edge: 1 = Several days Not being able to stop or control worryin = Several days Worrying too much about different things: 1 = Several days Trouble relaxin = Not at all Being so restless that it is hard to sit still: 0 = Not at all Becoming easily annoyed or irritable: 0 = Not at all Feeling afraid as if something awful might happen: 0 = Not at all Total CIRO-7 score (0-4 normal; 5-9 mild; 10-14 moderate; 15-21 severe): 3 Source: Developed by Drs. Barak Hartmann, Garth Young and colleagues, with an educational marisa from [employer]. Review of Systems Const Denies poor appetite and Denies weakness Eyes Denies no additional complaints ENT Reports Normal hearing present, Denies dizziness, Denies nasal congestion, Denies tinnitus and Denies sore throat Card Denies chest pain, Denies syncope, Denies rapid heart rate and Denies dyspnea Resp Denies cough and Denies dyspnea GI Denies change in stool character, Reports constipation, Denies diarrhea, Denies nausea and Denies vomiting Denies urinary frequency, Denies difficulty voiding and Denies dysuria Neuro Reports Normal hearing present, Denies confusion, Denies dizziness, Denies syncope and Denies weakness Psych Denies confusion Physical exam (Primary Care) Vital Signs: Last Vital Signs Pulse 72 06/15/23 16:10 BP 134/78 06/15/23 16:10 Pulse Ox 98 06/15/23 16:10 Oxygen Delivery Method Room Air 06/15/23 16:10 BMI result Body Mass Index 26.1 Tobacco/Smoking Status: Tobacco use Status Tobacco use date assessed 06/15/23 06/15/23 16:13 Patient Tobacco Use Status Never used Tobacco 06/15/23 16:13 Tobacco use type Cigarette 06/15/23 16:13 e-Cigarette/Vaping Use Never Used 06/15/23 16:13 PHQ-9: PHQ-9 Score PHQ-9: Total score 2 06/15/23 16:20 Depression Screening Interpretation: Negative Thrive Assessment: Date of Thrive Assessment Date Thrive assessed 06/15/23 06/15/23 16:13 Const Other: impacted c erumen L ear , R TM intact General: No confusion Orientation/consciousness: No confusion HENMT Head: Yes normocephalic Ears: external ears normal and TM's normal bilaterally Face and sinus: Yes normal facial exam Mouth: moist mucous membranes Throat: Yes tonsils normal Eyes Conjunctivae: conjunctivae normal Pupils: Equal, round and reactive pupils present and Pupil accommodation reflex normal Direct Ophthalmoscopy: normal light reflex Neck Neck: No lymphadenopathy Thyroid: Thyroid normal Chest Chest palpation & inspection: normal inspection of the chest Resp Effort & Inspection: normal respiratory effort and no audible wheezes Auscultation: clear to auscultation bilaterally, no crackles, no wheezes and lung sounds not diminished Cardio Rate: regular rate Rhythm: regular rhythm Peripheral pulses: radial pulses present and dorsalis pedis present GI Other: referral for colon test Palpation (GI): no masses Auscultation: normal bowel sounds and normoactive bowel sounds Rectal Exam - Female: deferred Skin General skin exam: no rashes or lesions noted Rashes: no rashes Neuro General: No confusion Cranial nerves: Yes Equal, round and reactive pupils present and Yes Normal hearing present Cognition (Neuro): normal cognition Gait exam (Neuro): Normal gait present Motor exam (neuro): 5/5 motor strength present throughout Deep tendon reflexes (DTR's): Right brachioradialis reflex intensity grade: 2+, Left brachioradialis reflex intensity grade: 2+, Right patellar reflex intensity grade: 2+ and Left patellar reflex intensity grade: 2+ Extrem General: No edema Assessment and Plan Assessment & Plan (1) Annual physical exam: Code(s): Z00.00 - Encounter for general adult medical examination without abnormal findings (2) Breast cancer: Comment: September 2022Invasive ductal carcinoma, grade 3, with lobular features. Code(s): C50.919 - Malignant neoplasm of unspecified site of unspecified female breast Plan: Patient continues to follow-up with Hematology-Oncology had chemotherapy done. (3) Osteoarthritis of knees, bilateral: Code(s): M17.0 - Bilateral primary osteoarthritis of knee Plan: Keep active (4) Hypercholesterolemia: Code(s): E78.00 - Pure hypercholesterolemia, unspecified Plan: Avoid fried foods, chicken skin, eggs, butter margarine, pastries and meat. Be it pork or beef they have a lot of cholesterol June 2022 last blood work (5) Asthma: Code(s): J45.909 - Unspecified asthma, uncomplicated Qualifiers: Asthma severity: mild Asthma persistence: intermittent Asthma complication type: uncomplicated Qualified Code(s): J45.20 - Mild intermittent asthma, uncomplicated Plan: Stable on levalbuterol as needed (6) Impaired glucose tolerance: Code(s): R73.02 - Impaired glucose tolerance (oral) Plan: Decrease the amount of carbohydrate intake, pasta, bread, rice and potatoes are all sugar and that is aside from all the sweet stuff, remember that fruits are good but they are Sweet also. (7) Tubular adenoma of colon: Comment: 2019 tubular adenoma Code(s): D12.6 - Benign neoplasm of colon, unspecified Plan: Referral to Gastroenterology Orders: Referrals Gastroenterology Referral D12.6 - Benign neoplasm of colon, unspecified Coding Level of Care Code Est Pt Prev Care >65y(72212) Diagnoses Annual physical exam Z00.00 Breast cancer C50.919 Osteoarthritis of knees, bilateral M17.0 Hypercholesterolemia E78.00 Mild intermittent asthma without complication J45.20 Asthma severity: mild Asthma persistence: intermittent Asthma complication type: uncomplicated Impaired glucose tolerance R73.02 Tubular adenoma of colon D12.6
== END 2023-06-15 17:04 | disposition home or self-care (01) ==
LOC: HO.HMGH 16:01
PROVIDERS: PCP Internal Medicine; Visit Provider Internal Medicine
DX: Z00.00 Encounter for general adult medical examination without abnormal findings (principal); C50.919 Malignant neoplasm of unspecified site of unspecified female breast; M17.0 Bilateral primary osteoarthritis of knee; E78.00 Pure hypercholesterolemia, unspecified; J45.20 Mild intermittent asthma, uncomplicated; R73.02 Impaired glucose tolerance (oral); D12.6 Benign neoplasm of colon, unspecified
CPT/HCPCS: 99397

== ENCOUNTER 2023-07-17 07:58 | Outpatient (REF) | payer OTHER, SELFPAY | END 2023-07-17 07:59 | disposition home or self-care (01) | LOC: HO.MRI 07:58 | PROVIDERS: PCP Internal Medicine; Visit Provider Internal Medicine Medical Oncology | DX: Z13.89 Encounter for screening for other disorder (principal) ==

== ENCOUNTER 2023-07-17 08:32 | Emergency (ER) | payer OTHER, SELFPAY ==
--- NOTE | ~2023-07-17 | XR_ITS ---
EXAMINATION: XR CHEST CLINICAL INFORMATION: Dizziness COMPARISON: Previous chest x-ray August 2021 TECHNIQUE: Frontal view of the chest was obtained. FINDINGS: Right jugular port tip projects over SVC. No significant abnormality is noted involving the heart, lungs, mediastinum, bony thorax or soft tissues. XR/XR chest 1V IMPRESSION: No evidence for acute disease in the chest.
--- NOTE | ~2023-07-17 | CT_ITS ---
EXAMINATION: CT HEAD WITHOUT CONTRAST CLINICAL INFORMATION: Sudden onset altered mental status and right-sided headache. COMPARISON: No relevant prior imaging. TECHNIQUE: Contiguous axial imaging was performed from the skull base to vertex without intravenous administration of contrast. This CT examination was performed using dose optimization techniques as appropriate, variously including the following: *Automated exposure control *Adjustment of mA and/or kV according to patient size (this includes techniques or standardized protocols for targeted exams where dose is matched to indication/reason for exam; i.e. extremities or head) *Use of iterative reconstruction technique DLP: 614 mGy-cm FINDINGS: There is no acute intracranial hemorrhage or abnormal extra-axial collection. Lateral and third ventricles are normal. No hydrocephalus. Jacobs-white matter differentiation is preserved and there is no evidence of acute territorial infarct. The calvarium and skull base are intact. Mastoid air cells and middle ear cavities are well aerated. No active paranasal sinus disease. Globes and orbits are grossly symmetric. CT/CT head/brain wo IV con IMPRESSION: Unremarkable CT scan of the head. No evidence of acute territorial infarct or hemorrhage.
--- NOTE | ~2023-07-17 | CT_ITS ---
EXAMINATION: CT angio head neck CLINICAL INFORMATION: Right-sided headache. Altered mental status. COMPARISON: CT scan of the head 07/17/2023. TECHNIQUE: Head Of Housekeeping images were obtained. A CT angiogram of the head and neck was performed in the arterial phase after the intravenous administration of 70 mL Omnipaque 350. Pre and delayed postcontrast images of the head were also obtained. 3D images were processed on an independent workstation under concurrent supervision. Arterial stenoses are measured in accordance with NASCET criteria or similar method if applicable. This CT examination was performed using dose optimization techniques as appropriate, including one or more of the following: Automated exposure control, iterative reconstruction, and adjustment of technique factors (mA and/or kVp) according to patient size (this includes techniques or standardized protocols for targeted exams where dose is matched to indication/reason for exam). Fleischner Society criteria for the followup of incidental pulmonary nodules was implemented if appropriate. Total exam dose-length product 1380 mGy-cm FINDINGS: Head: Delayed postcontrast images reveal no abnormal intracranial mass or enhancement. There is no intracranial mass effect or midline shift. Lateral and third ventricles are normal. No hydrocephalus. Jacobs-white matter differentiation is preserved and there is no evidence of acute territorial infarct. The calvarium and skull base are intact. Mastoid air cells and middle ear cavities are well aerated. No active paranasal sinus disease. CT angiogram neck: The aortic arch apex is normal. Origins of the major aortic branches are widely patent. Common carotid arteries and carotid bifurcations are normal. No stenosis of the extracranial internal carotid arteries. The cervical segments of the vertebral arteries are patent. CT angiogram head: Intracranial internal carotid arteries are normal. Intradural vertebral artery segments and basilar artery are normal. Anterior, middle, and posterior cerebral complexes are normal. No intracranial large vessel occlusion. No identifiable aneurysm or high flow vascular lesion. The timing of the contrast injection provides adequate opacification of the dural venous sinuses which are patent. Other: There are scattered symmetrically seated nonspecific cervical lymph nodes. An injection port within the right chest is partially included within the [id number] of this 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 Lung apices are clear. No acute osseous finding. Specifically no worrisome lytic or blastic osseous lesion. CT/CT angio head neck IMPRESSION: Unremarkable examination in that there is no evidence of acute territorial infarct or hemorrhage. No abnormal intracranial mass or enhancement. There is no stenosis of the cervical carotid or vertebral arteries. No intracranial large vessel occlusion.
--- NOTE | 2023-07-17 08:34 | ECG_ITS ---
Test Reason : syncope Blood Pressure : / mmHG Vent. Rate : 071 BPM Atrial Rate : 071 BPM P-R Int : 150 ms QRS Dur : 086 ms QT Int : 414 ms P-R-T Axes : -04 -27 026 degrees QTc Int : 449 ms Normal sinus rhythm Normal ECG When compared with ECG of 28-NOV-2013 10:44, No significant change was found Referred By: Eileen Turpin Electronically Signed By:Sundar Dawson
--- NOTE | 2023-07-17 08:36 | ED_ITS ---
HPI - General Adult General Chief complaint: General Medical Stated complaint: dizzness Time Seen by Provider: 07/17/23 08:36 Source: patient and other (ED nurse leader) Mode of arrival: wheelchair Limitations: no limitations History of Present Illness HPI narrative: 67 year old female hx of tubulat adenoma of the breast, her-2 breast cancer, OA of knee, obesity, hld, asthma presents from MRI as a outpatient response for intermittent ams and dizziness while getting an MRI. She states she doesnt know whats wrong she just doesnt feel right. Reports she has a right sided headache, sharp and sudden she tells me she typically doesn't get headaches. Denies cp, sob, nausea, vomiting, vision changes, weakness, abd pain, diarrhea. NIHSS-0 Related Data Home Medications Medication Instructions Recorded Confirmed loratadine 10 mg tablet 10 mg PO NEEDED PRN allergies 05/31/20 07/06/23 Previous Rx's Medication Instructions Recorded levalbuterol tartrate 45 2 puff inhalation Q4-6H #15 grams 09/16/21 mcg/actuation aerosol inhaler (Xopenex HFA) fluticasone propionate 50 2 spray intranasal DAILY #16 grams 01/19/22 mcg/actuation nasal spray,suspension (Flonase Allergy Relief) dexamethasone 4 mg tablet 4 mg PO BID #100 tabs 11/07/22 loperamide 2 mg capsule (Imodium 2 mg PO Q6H PRN Diarrhea #50 caps 11/17/22 A-D) Magic Mouthwash 10 ml PO QID #240 mL 11/28/22 Diphen/Lido/Antacid 1:1:1 240 mL suspension gabapentin 300 mg capsule 300 mg PO BEDTIME #90 caps 02/04/23 duloxetine 20 mg capsule,delayed 20 mg PO BID #60 caps 02/09/23 release naproxen 500 mg tablet 500 mg PO Q12H PRN pain #60 tabs 04/30/23 anastrozole 1 mg tablet (Arimidex) 1 mg PO DAILY #90 tabs 05/04/23 hydroxyzine HCl 25 mg tablet 25 mg PO TID #60 tabs 06/15/23 montelukast 10 mg tablet 10 mg PO BEDTIME #30 tabs 07/04/23 potassium chloride 20 mEq 20 meq PO DAILY #30 tabs 07/04/23 tablet,extended release Allergies Allergy/AdvReac Type Severity Reaction Status Date / Time seafood Allergy Mild Swelling Verified 06/15/23 16:11 ephedrine [From Primatene] AdvReac Severe Shortness Verified 06/15/23 16:11 of Breath/Asthma Attack diphenhydramine AdvReac Intermediate Shortness Verified 06/15/23 16:11 [From Benadryl] of Breath shellfish derived AdvReac Mild Muscle Pain Verified 06/15/23 16:11 Review of Systems 2 Review of Systems: Yes all other systems are reviewed and are negative [facility] Past Medical History Attestation statement: The following information was validated with the patient. Source: old records reviewed and nursing notes reviewed Medical History Knee pain, bilateral Osteoarthritis of left knee Right serous otitis media Anxiety Essential tremor Acute bronchitis Breast cancer screening by mammogram Anserine bursitis Obesity (BMI 30-39.9) Osteopenia Gallbladder polyp Anxiety Osteoarthritis of knee Overweight (BMI 25.0-29.9) Fatty liver Lumbar degenerative disc disease Vitamin D deficiency Hypercholesterolemia Lactose intolerance Allergic rhinitis Asthma Surgical History History of hysterectomy, supracervical Family History Family History Father Diabetes Mother No problems noted. 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 Oriented X3.? No acute distress.? Head: Normocephalic, atraumatic, no step-offs or deformities Eyes: Pupils equal, round and reactive to light.? EOMI pain free Neck: Normal inspection.? Neck supple.? CVS: Normal heart rate and rhythm.? Pulses normal.? Respiratory: No respiratory distress.? Breath sounds normal.? Abdomen: Soft and nontender.? Skin: Skin warm and dry.? Normal skin color.? Normal skin turgor.? Extremities: No lower extremity edema.? No calf ttp. 5/5 strength to bilateral upper and lower extremities. Normal hand distribution superintendent. Negative romberg and pronator drift. Back: No midline tenderness, no C-spine tenderness, full range of motion, no CVA tenderness bilaterally Neuro: Oriented X 3.? No motor deficit.? No sensory deficit. CN 2-12 intact NIHSS-0 Course Reevaluation(s) Reevaluation #1: CBC unremarkable appears to be around patient's baseline. Chemistry no acute findings requiring intervention. Magnesium 1.5. mag ox ordered. Troponin negative. EKG nonischemic. COVID negative. Chest x-ray no evidence of acute disease in the chest. Head CT unremarkable no evidence of acute territorial infarct or hemorrhage. CTA pending. Time: 11:17 Reevaluation #2: CTA unremarkable examination there is no evidence of acute territorial infarct or hemorrhage. No abnormal intracranial mass or enhancement. There is no stenosis of the cervical carotid or vertebral arteries. No intracranial large vessel occlusion. Reevaluation #3: Patient reports she is pain-free. Feeling much better. Would like to go home. Educated patient on diagnosis and treatment plan, answered all question, patient verbalizes understanding. At this time patient will be discharged home, advised to return with new or worsening symptoms. Educated on worrisome signs and symptoms and when to return. At this time I feel comfortable discharge home. At time of discharge no focal neurological deficits. Time: 15:01 Medications Administered Discontinued Medications Generic Name Dose Route Start Last Admin Trade Name Freq PRN Reason Stop Dose Admin Acetaminophen 975 mg 07/17/23 11:18 07/17/23 11:50 Acetaminophen 325 Mg Tablet PO 07/17/23 11:19 975 mg ONCE ONE Administration Iohexol 70 ml 07/17/23 11:40 07/17/23 11:40 Iohexol 350 Mg/Ml 100 Ml Infus..Btl IV 07/17/23 11:41 70 ml ONCE ONE Administration Lorazepam 0.5 mg 07/17/23 12:28 07/17/23 13:04 Lorazepam 2 Mg/Ml Vial IVPUSH 07/17/23 12:29 0.5 mg STAT STA Administration Magnesium Oxide 400 mg 07/17/23 11:16 07/17/23 11:50 Magnesium Oxide 400 Mg Tablet PO 07/17/23 11:17 400 mg ONCE ONE Administration Medical Decision Making Medical Decision Making [facility] Narrative: 0841 67 year old female presents as an outpatient response w/ complaints of headache ( r sided) started around 20 minutes ago around 0820. Denies changes in vision or dizziness at this time PE benign. NIHSS-0 Hx and pe concerning for possible migrane vs ich vs anxiety/panic vs hypoglycemia vs electrolyte abnormalities vs tia . Unlikely ischemic stroke, pe, acs Plan- labs, imaging Differential Diagnosis Differential Diagnoses: The differential diagnosis associated with the presentation includes Hx and pe concerning for possible migrane vs ich vs anxiety/panic vs hypoglycemia vs electrolyte abnormalities vs tia . Unlikely ischemic stroke, pe, acs Admission/Observation Consideration of admission/observation: Escalation of care including admission/observation considered Lab Data [facility] Lab Attestation statement: I reviewed the patient's lab results. 07/17/23 09:18 07/17/23 09:18 Labs: Lab Results 07/17/23 07/17/23 07/17/23 Range/Units 08:33 09:18 10:29 WBC 4.9 (4.8-10.8) X10*3/uL RBC 3.58 L (4.20-5.50) X10*6/uL Hgb 10.8 L (12.0-16.0) g/dl Hct 31.4 L (37.0-47.0) % MCV 87.7 (80.0-98.0) fL MCH 30.2 (27.0-33.0) pg MCHC 34.4 (31.0-35.0) g/dl RDW 13.1 (11.0-16.0) % Plt Count 153 L (160-400) X10*3/uL MPV 9.1 L (9.4-12.3) fL Immature Gran % (Auto) 0.2 (0.0-0.4) % Neut % (Auto) 45.1 (45-73) % Lymph % (Auto) 46.7 H (20-40) % [place] % (Auto) 7.4 (2-11) % Eos % (Auto) 0.4 (0-4) % Baso % (Auto) 0.2 (0-2) % Lymph # (Auto) 2.3 (1.2-4.9) X10*3/uL [place] # (Auto) 0.4 (0.1-1.2) X10*3/uL Eos # (Auto) 0.0 (0.0-0.4) X10*3/uL Baso # (Auto) 0.0 (0.0-0.2) X10*3/uL Abs Immat Gran (auto) 0.01 (0.00-0.03) X10*3/uL Absolute Neuts (auto) 2.2 (2.0-8.3) x10*3/uL Absolute Nucleated RBC 0.000 (0.0-0.012) X10*3/uL Nucleated RBC % (auto) 0.0 (0.0-0.2) /100WBC PT 11.7 (11.1-13.3) SEC INR 1.0 (0.9-1.1) Sodium 140 (135-145) mmol/L Potassium 3.6 (3.3-5.1) mmol/L Chloride 106 (96-108) mmol/L Carbon Dioxide 29 (22-29) mmol/L Anion Gap 9 L (12-20) BUN 25 H (9-16) mg/dL Creatinine 0.80 (0.5-1.4) mg/dL Estim Creat Clear Calc 63.1 Estimated GFR > 60 POC Glucose 138 H (60-115) mg/dL Random Glucose 116 H (60-115) mg/dL Calcium 9.4 (8.4-10.2) mg/dL Magnesium 1.5 L (1.6-2.6) mg/dL Total Bilirubin 0.3 (0.0-1.0) mg/dL AST 20 (5-31) U/L ALT 25 (0-31) U/L Alkaline Phosphatase 113 (39-117) U/L Troponin I High Sens < 2.7 (<3.5-17.0) ng/L Total Protein 6.9 (6.5-8.0) g/dL Albumin 3.8 (3.5-5.0) g/dL Lipase 39 (8-78) U/L COVID-19 (JEN) Negative (Negative) COVID-19 Clin Com See Note Independent Interpretation I performed an independent interpretation of an: EKG (Vent. Rate : 071 BPM Atrial Rate : 071 BPM P-R Int : 150 ms QRS Dur : 086 ms QT Int : 414 ms P-R-T Axes : -04 -27 026 degrees QTc Int : 449 ms Normal sinus rhythm Normal ECG When compared with ECG of 28-NOV-2013 10:44, No significant change was found), Plain X-Ray (XR/XR chest 1V IMPRESSION: No evidence for acute disease in the chest. ) and CT Scan (CT/CT angio head neck IMPRESSION: Unremarkable examination in that there is no evidence of acute territorial infarct or hemorrhage. No abnormal intracranial mass or enhancement. There is no stenosis of the cervical carotid or vertebral arteries. No intracranial large vessel occlusion.) Interpretation: CT/CT head/brain wo IV con IMPRESSION: Unremarkable CT scan of the head. No evidence of acute territorial infarct or hemorrhage. Radiology Impression Discussion of test interpretation with radiology: I have reviewed the radiologist's reading. Critical Care Time Critical Care Time Critical Care Time: Yes Total Critical Care Time: 45 Attestation: I attest to this time spent taking care of the patient, obtaining history, physical, reviewing labs, imaging, speaking to my attending, speaking to specialist. Discharge Plan Discharge Clinical Impression: Headache, Lightheaded Patient Disposition: Home, Self-Care Prescriptions: No Action gabapentin 300 mg capsule 300 mg PO BEDTIME Qty: 90 1RF naproxen 500 mg tablet 500 mg PO Q12H PRN (Reason: pain) Qty: 60 3RF potassium chloride 20 mEq Tablet Extended Release 20 meq PO DAILY Qty: 30 2RF montelukast 10 mg tablet 10 mg PO BEDTIME Qty: 30 0RF dexamethasone 4 mg Tablet 4 mg PO BID Qty: 100 4RF Rx Instructions: Take 4 mg p.o. starting day before chemo, then twice a day the day of chemo and then the following morning. Repeat with each chemotherapy cycle. loperamide [Imodium A-D] 2 mg Capsule 2 mg PO Q6H PRN (Reason: Diarrhea) Qty: 50 3RF Magic Mouthwash Diphen/Lido/Antacid 1:1:1 240 mL Suspension 10 ml PO QID Qty: 240 0RF Rx Instructions: Lidocaine Viscous 2 % 80mL; diphenhydramine 12.5 mg/5 mL 80mL; aluminum-mag hydrox-simeth [id number]/5mL 80mL duloxetine 20 mg Capsule,Delayed Release(Dr/Ec) 20 mg PO BID Qty: 60 3RF anastrozole [Arimidex] 1 mg Tablet 1 mg PO DAILY Qty: 90 4RF hydroxyzine HCl 25 mg Tablet 25 mg PO TID Qty: 60 0RF loratadine 10 mg tablet 10 mg PO NEEDED PRN (Reason: allergies) albuterol sulfate 2.5 mg /3 mL (0.083 %) solution for nebulization 2.5 mg inhalation ONCE Qty: 3 0RF levalbuterol tartrate [Xopenex HFA] 45 mcg/actuation HFA aerosol inhaler 2 puff inhalation Q4-6H Qty: 15 0RF fluticasone propionate [Flonase Allergy Relief] 50 mcg/actuation spray,suspension 2 spray intranasal DAILY Qty: 16 0RF Rx Instructions: administer into each nostril
[2023-07-17 08:52] VITALS: BP 146/90; PULSE 70; RESP 12; TEMP 36.6; O2SAT 98; BMI 24.3
[2023-07-17 09:22] LABS: MANUAL DIFF FLAG NO
[2023-07-17 09:24] LABS: Basophils Percent Auto 0.2 % (0-2); Eosinophils Percent Auto 0.4 % (0-4); Hematocrit 31.4 % (37.0-47.0); Hemoglobin 10.8 g/dl (12.0-16.0); Imm Gran Abs Auto 0.01 X10*3/uL (0.00-0.03); Imm Gran Pct Auto 0.2 % (0.0-0.4); Lymphocytes Absolute Auto 2.3 X10*3/uL (1.2-4.9); Lymphocytes Percent Auto 46.7 % (20-40); Mean Corpuscular HGB Conc 34.4 g/dl (31.0-35.0); Mean Corpuscular Hemoglobin 30.2 pg (27.0-33.0); Mean Corpuscular Volume 87.7 fL (80.0-98.0); Mean Platelet Volume 9.1 fL (9.4-12.3); Monocytes Absolute Auto 0.4 X10*3/uL (0.1-1.2); Monocytes Percent Auto 7.4 % (2-11); Neutrophils Absolute Auto 2.2 x10*3/uL (2.0-8.3); Neutrophils Percent Auto 45.1 % (45-73); Platelet Count 153 X10*3/uL (160-400); Red Blood Count 3.58 X10*6/uL (4.20-5.50); Red Cell Distribution Width 13.1 % (11.0-16.0); White Blood Count 4.9 X10*3/uL (4.8-10.8)
[2023-07-17 09:29] LABS: Prothrombin Time 11.7 SEC (11.1-13.3)
[2023-07-17 09:41] LABS: Alanine Aminotransferase 25 U/L (0-31); Albumin Level 3.8 g/dL (3.5-5.0); Alkaline Phosphatase 113 U/L (39-117); Anion Gap 9 (12-20); Aspartate Amino Transferase 20 U/L (5-31); Bilirubin Total 0.3 mg/dL (0.0-1.0); Blood Urea Nitrogen 25 mg/dL (9-16); Calcium 9.4 mg/dL (8.4-10.2); Carbon Dioxide 29 mmol/L (22-29); Chloride 106 mmol/L (96-108); Creatinine Clr Calc Pharmacy 63.1; Estimated Glomerular Filt Rate > 60; Glucose Random 116 mg/dL (60-115); Lipase 39 U/L (8-78); Magnesium 1.5 mg/dL (1.6-2.6); Potassium 3.6 mmol/L (3.3-5.1); Sodium 140 mmol/L (135-145); Total Protein 6.9 g/dL (6.5-8.0)
[2023-07-17 09:57] LABS: Troponin-I High Sensitivity < 2.7 ng/L (<3.5-17.0)
--- NOTE | 2023-07-17 10:27 | PC.NURSE ---
patient brought in after outpatient response was called to MRI, patient stated she was sitting in a chair having her labs drawn and she started to feel dizzy, light headed and the next she knew there was people surrounding her. patient port was accessed by this RN in the ED labs, ekg done. awaiting CT scan results, VSS, at bedside. patient is alert and oriented.
[2023-07-17 10:30] VITALS: BP 131/77; PULSE 73; RESP 15; TEMP 36.7; O2SAT 97
[2023-07-17 11:04] LABS: COVID-19 Test Negative (Negative); IDNOW Serial# 152EDE1D
[2023-07-17] MEDS: iohexoL 350 MG/ML 100 ML INFUS..BTL 70 ML IV (11:40)
[2023-07-17] MEDS: Magnesium Oxide 400 MG TABLET PO (11:50)
[2023-07-17] MEDS: Acetaminophen 325 MG TABLET 975 MG PO (11:50)
[2023-07-17 12:37] LABS: Glucose, Whole Blood 138 mg/dL (60-115)
[2023-07-17] MEDS: LORazepam 2 MG/ML VIAL 0.5 MG IVPUSH (13:04)
--- NOTE | 2023-07-17 13:45 | PC.NURSE ---
patient tolerated jelly, po challenge cleared
[2023-07-17 14:16] VITALS: BP 148/86; PULSE 68; RESP 16; TEMP 36.5; O2SAT 95
== END 2023-07-17 15:42 | disposition home or self-care (01) ==
PROVIDERS: Physician Assistant; Emergency Provider Emergency Medicine; PCP Internal Medicine
DX: R55 Syncope and collapse (principal); R42 Dizziness and giddiness; R51.9 Headache, unspecified; Z79.899 Other long term (current) drug therapy; Z11.52 Encounter for screening for COVID-19
CPT/HCPCS: 70450; 70496; 70498; 71045; 80053; 82947; 83690; 83735; 84484; 85025; 85610; 87635; 93005; 96374; 99284; J2060; Q9967

== ENCOUNTER → 2023-07-17 08:34 | Outpatient (BNV) | payer OTHER, SELFPAY | PROVIDERS: Emergency Provider Emergency Medicine; PCP Internal Medicine; Visit Provider Internal Medicine Cardiovascular Disease | DX: R55 Syncope and collapse (principal) | CPT/HCPCS: 93010 ==

== ENCOUNTER 2023-07-20 08:09 | Outpatient (AMB) | payer OTHER, SELFPAY ==
--- NOTE | 2023-07-20 08:20 | A.OFFVIS_ITS ---
Intake Vital Signs 07/20/23 08:23 Height 5 ft 5 in Weight 145 lb 8.081 oz BMI 24.2 BP 120/70 Intake Visit Reasons: COPYIST annual exam Intake Note: no concerns Mobile Device Engineer Required: No Information Interpreted: non-clinical & clinical Chargemaster Analyst: Chargemaster Analyst Present (Donna Bautista HUMPHREY) Accompanied by: Self / Same As Patient Allergies seafood Allergy (Mild, Verified 07/20/23 08:25) Swelling ephedrine [From Primatene] Adverse Reaction (Severe, Verified 07/20/23 08:25) Shortness of Breath/Asthma Attack diphenhydramine [From Benadryl] Adverse Reaction (Intermediate, Verified 07/20/23 08:25) Shortness of Breath shellfish derived Adverse Reaction (Mild, Verified 07/20/23 08:25) Muscle Pain Post menopausal: Yes HPI HPI Comments History of Present Illness Details She is a postmenopausal woman 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 She is doing well with no locker room attendant concerns. Attempting to eat a healthy diet during Chemo treatments, taking multivitamins, fatigued, limited energy level. Currently very occasionally sexually active. Denies any vaginal dryness or irritation. Last pap smear; 2020. Last mammogram; UTD Colonoscopy is UTD. Has future plans for the next one w/referral. Denies any family history of breast, ovarian or colon cancer. [facility] Medical History Knee pain, bilateral Osteoarthritis of left knee Right serous otitis media Anxiety Essential tremor Acute bronchitis Breast cancer screening by mammogram Anserine bursitis Obesity (BMI 30-39.9) Osteopenia Gallbladder polyp Anxiety Osteoarthritis of knee Overweight (BMI 25.0-29.9) Fatty liver Lumbar degenerative disc disease Vitamin D deficiency Hypercholesterolemia Lactose intolerance Allergic rhinitis Asthma Surgical History History of hysterectomy, supracervical Family History Father Diabetes Mother No problems noted. 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 Sexual orientation: Straight/Heterosexual Gender identity: Female Cognitive needs: No Hearing needs: No Vision needs: Yes Female Reproductive History Menstrual Age of Menarche: 15 Total pregnancies: 1 Full term: 1 Number of Living Children: 1 Date of Mammogram: 09/26/22 Review of Systems Const All systems reviewed & are unremarkable except as noted in HPI and below Reports as per HPI Eyes Reports no additional complaints ENT Reports no additional complaints Card Reports no additional complaints Resp Reports no additional complaints GI Reports as per HPI and Reports no additional complaints Reports as per HPI Musc Reports no additional complaints Skin/Breast Reports as per HPI Neuro Reports no additional complaints Psych Reports no additional complaints Endo Reports no additional complaints Darwin/Lymph Reports no additional complaints Aller/Immun Reports no additional complaints Physical Exam Vital Signs: BMI result Body Mass Index 24.2 Const General: cooperative, healthy appearing, no acute distress, well developed and alert Orientation/consciousness: patient oriented x3 HEENT Head: Yes normal to inspection Eyes General: appearance normal, both eyes and all related structures Neck Neck: Yes normal visual inspection Thyroid: Thyroid normal Chest Chest palpation & inspection: normal inspection of the chest and other (no puckering, dimpling, peau de orange, retraction, discharge, masses) Breast/axilla inspection: normal inspection of the breasts Breast/axilla palpation: normal palpation of the breasts Resp Effort & Inspection: normal respiratory effort GI Inspection: Yes normal to inspection Palpation (GI): Soft to palpation Rectal Exam - Female: deferred General: Yes bladder normal to palpation External Female Exam: normal external appearance and normal appearance of the urethra Speculum Exam - Vagina: normal appearance of the vagina, normal palpation, normal vaginal discharge and vagina atrophic Speculum Exam - Cervix: normal appearance of the cervix and normal palpation Bimanual exam- vagina & uterus: normal bimanual exam, normal palpation, uterine size normal, bladder normal to palpation, normal palpation and non-tender Bimanual Exam- Adnexa, other: no masses Skin General skin exam: no rashes or lesions noted Rashes: no rashes Neuro General: patient oriented x3 Cognition (Neuro): normal cognition Extrem General: Yes normal to inspection Psych Attitude: cooperative Thought process: Normal thought process present Assessment & Plan Assessment & Plan (1) Encounter for well woman exam with routine gynecological exam: Code(s): Z01.419 - Encounter for gynecological examination (general) (routine) without abnormal findings Plan Discussed: Current recommendations for pap smears per ASCCP guidelines. Follow up with Oncology for breast care. Contact the office with any postmenopausal bleeding. Patient verbalizes understanding and agrees to the plan of care. She was given opportunity to ask questions and all questions were answered to the best of my ability. RTO in 1 year for annual locker room attendant exam. This note is constructed using voice recognition software. While every effort has been made to ensure accuracy, locker room attendant errors may have been included. Coding Level of Care Code Est Pt Prev Care >65y(55222) Diagnoses Encounter for well woman exam with routine gynecological exam Z01.419
[2023-07-20 08:23] VITALS: BP 120/70; BMI 24.2
== END 2023-07-20 09:23 | disposition home or self-care (01) ==
PROVIDERS: Visit Provider Advanced Practice Midwife
DX: Z01.419 Encounter for gynecological examination (general) (routine) without abnormal findings (principal)
CPT/HCPCS: 99397

== ENCOUNTER → 2023-07-20 08:09 | Outpatient (BNVA) | payer OTHER, SELFPAY | PROVIDERS: Visit Provider Advanced Practice Midwife | DX: Z01.419 Encounter for gynecological examination (general) (routine) without abnormal findings (principal); R53.83 Other fatigue | CPT/HCPCS: 99397 ==

== ENCOUNTER 2023-07-23 13:49 | Outpatient (REF) | payer OTHER, SELFPAY ==
--- NOTE | ~2023-07-23 | MR_ITS ---
EXAMINATION: MR BREAST WITHOUT AND WITH CONTRAST, BILATERAL CLINICAL INFORMATION: Known left breast carcinoma, status post neoadjuvant chemotherapy. COMPARISON: Bilateral breast MRI 11/18/2022 TECHNIQUE: Imaging was performed with a dedicated breast coil. Prior to the administration of contrast, bilateral axial T1 and bilateral axial T2 weighted sequences were obtained. After the uneventful administration of?6.5 mL of Gadavist, dynamic contrast-enhanced VIBRANT series through the breasts in the axial plane were performed. Subtracted images were performed and reviewed. A delayed sagittal sequence through both breasts was acquired. Additionally, CAD post-processing, including maximum intensity projections, 3-D reconstructions and kinetic analysis, were performed an independent workstation and reviewed by the interpreting radiologist is a portion of this exam. FINDINGS: The patient's fibroglandular tissue is composed of extremely dense fibroglandular tissue and demonstrates no significant background enhancement. LEFT BREAST: At the site of the patient's index lesion, 6:00 position, 4.5 cm from the nipple there is a clip containing enhancing mass which now measures 0.5 x 0.5 cm (previous 1.6 x 1.7 cm), the marked interval decrease in size is consistent with a significant response to neoadjuvant chemotherapy. The more anterior and inferiorly positioned marker clip in the 5-6:00 position, 2.5 cm from the nipple corresponding to the site of multifocal malignancy, is again noted, there is no visible residual nodular enhancement in this location, consistent with a significant response to neoadjuvant chemotherapy. There is no new suspicious enhancing mass, duct dilatation or ductal type enhancement present. No skin thickening or nipple retraction is seen. RIGHT BREAST: No suspicious masslike or non-masslike enhancement. No abnormal skin thickening or nipple retraction. No abnormal architectural distortion. Review of the T2 weighted images demonstrates no fibrocystic changes or dilated ducts. Review of kinetic images reveals no additional findings. There has been a significant interval decrease in size of the malignant level 1 left axillary lymph node (previously measured 2.3 cm in short axis diameter, currently measures 0.7 cm in short axis diameter. There is no suspicious internal mammary chain or axillary adenopathy. Limited views of the chest and abdomen are unremarkable. MR/MR breast BI wo/w con IMPRESSION: There has been a significant response to neoadjuvant chemotherapy of the index lesion in the 6:00 position of the left breast as well as the malignant left axillary lymph node and a complete imaging response to neoadjuvant chemotherapy of these satellite lesions in the 5 to 6:00 position of the left breast. ASSESSMENT: LEFT BREAST: BI-RADS 6- Known malignancy is present. RIGHT BREAST: BI-RADS 1-Negative RECOMMENDATIONS: Definitive clinical management of left breast carcinoma, status post neoadjuvant chemotherapy as per Dr. Lott.
[2023-07-23] MEDS: gadobutroL 7.5 ML VIAL IVPUSH (14:43)
== END 2023-07-23 13:50 | disposition home or self-care (01) ==
LOC: HO.MRI 13:49
PROVIDERS: PCP Internal Medicine; Visit Provider Internal Medicine Medical Oncology
DX: C50.919 Malignant neoplasm of unspecified site of unspecified female breast (principal)
CPT/HCPCS: 77049; A9585

== ENCOUNTER → 2023-08-16 08:01 | Outpatient (REF) | payer OTHER, SELFPAY ==
--- NOTE | 2023-08-16 08:08 | CA_ITS ---
Transthoracic Echocardiogram Patient (Last, First, Middle): Fabiola Abbott, Gender: Female Date of : 1955 Age: 67 Procedure Date: 08/16/2023 Procedure Type: Transthoracic Echocardiogram Location: OP Height: 165.1 cm Weight: 68.95 kg BSA: 1.76 m2 Heart Rate: bpm BP: 138 / 88 mmHg Health Records Technology Teacher: NITO Referring MD: Dariela Lott MD Cement Truck Loader: Nate Mendoza MD Symptoms: On chemotherapy, determine ejection fraction Study Quality: Adequate ECG Rhythm: Sinus Conclusions: - Normal LV systolic function with LVEF of 60-65% Findings Left Ventricle Normal left ventricular size, thickness, and systolic function. The visually estimated ejection fraction is between 60-65%. Spectral Doppler is indicative of an impaired relaxation filling pattern. Prior Study Comparison No significant change compared to prior study dated: 05/22/2023. Measurements 2D Linear Measurements IVSd: 1.13 0.6-0.9/0.6-1.0 cm LVIDd: 4.76 3.9-5.3/4.2-5.9 cm LVIDd Index: 2.70 2.4-3.2/2.2-3.1 cm/m2 LVIDs: 3.17 2.0-3.6 cm LVPWd: 1.18 0.7-1.1 cm LA Diam: 3.60 2.7-3.8/3.0-4.0 cm LAIDs Index: 2.05 1.5-2.3 cm/m2 LV Mass: 255.36 67-162/88-224 g LV Mass Index: 145.09 43-95/49-115 g/m2 LVOT Diam: 2.00 3.0+(-)1.3 cm 2D Systolic Function EF 4C: 64.60 >55% EF 2C: 63.20 >55% EF BiP: 64.10 >55% Mitral Valve MV Pk E: 0.83 MV PK A: 0.82 MV Decel Time: 224.00 E/A: 1.00 E'Lateral: 8.49 E'Medial: 7.29 E/E' Med: 11.40 E/E' Lat: 9.80 PHT: 66.00 MVA PHT: 3.33 Decel [place]: 3.71 LVOT LVOT Pk Andrew: 0.95 LVOT Mn Andrew: 0.59 LVOT VTI: 0.22 LVOT Pk Grad: 4.00 LVOT Mn Grad: 2.00 LVOT Diam: 2.00 LVOT Area: 3.14 Diastolic Function MV Pk E: 0.83 MV Pk A: 0.82 E/A: 1.00 E'Medial: 7.29 E/E' Med: 11.40 E' Laterial: 8.49 E/E' Lat: 9.80 Tricuspid Valve RA Press: 3.00 Great Vessels Aorta Sinus of Valsalva: 26.10 2.0-3.[address] [place]: 11.90 1.7-3.4 cm Updated in Other Vendor System with Status of Final Nate Mendoza MD electronically signed on 08/17/2023 11:52:12 AM with status of Final
== END ==
LOC: HO.CARD 08:01
PROVIDERS: PCP Internal Medicine; Visit Provider Internal Medicine Medical Oncology
DX: C50.919 Malignant neoplasm of unspecified site of unspecified female breast (principal)
CPT/HCPCS: 93308

== ENCOUNTER → 2023-08-16 08:08 | Outpatient (BNV) | payer OTHER, SELFPAY | PROVIDERS: PCP Internal Medicine; Visit Provider Internal Medicine Cardiovascular Disease | DX: C50.912 Malignant neoplasm of unspecified site of left female breast (principal); Z92.21 Personal history of antineoplastic chemotherapy | CPT/HCPCS: 93308 ==

== ENCOUNTER → 2023-08-17 15:10 | Outpatient (BNVA) | payer OTHER, SELFPAY | PROVIDERS: PCP Internal Medicine; Visit Provider Nurse Practitioner Family ==

== ENCOUNTER 2023-08-20 15:26 | Outpatient (AMB) | payer OTHER, SELFPAY ==
[2023-08-20 16:23] VITALS: BP 128/76; PULSE 86; TEMP 37.4; O2SAT 97; BMI 26.9
--- NOTE | 2023-08-20 16:23 | MHC.OFFWIV ---
Intake Vital Signs 08/20/23 16:23 Height 5 ft 5 in Weight 161 lb 8 oz BMI 26.9 BP 128/76 Blood Pressure Location Rt brachial Position Sitting Pulse 86 Pulse Source Pulse Oximeter Temp 99.3 F Temp Source Temporal Artery Scan Pulse Oximetry (%) 97 Oxygen Delivery Method Room Air Intake Visit Reasons: EP sore throat sinus pain Intake Note: Pt presents to the office today for c/o sore throat, sinus pressure, cough, and left ear pain. She states this started about 3 days ago. She states she is currently under chemotherapy and her most recent chemo was sunday. Patient Tobacco Use Status: Never used Tobacco Allergies seafood Allergy (Mild, Verified 08/20/23 16:25) Swelling ephedrine [From Primatene] Adverse Reaction (Severe, Verified 08/20/23 16:25) Shortness of Breath/Asthma Attack diphenhydramine [From Benadryl] Adverse Reaction (Intermediate, Verified 08/20/23 16:25) Shortness of Breath shellfish derived Adverse Reaction (Mild, Verified 08/20/23 16:25) Muscle Pain HPI HPI Comments History of Present Illness Details Patient presents to the walk-in stay with complaints of sore throat for last 3 days Denies known sick contacts Pain with swallowing Endorses fever yesterday. Tolerating p.o., denies nausea, vomiting Denies headaches, chest pain, syncope, dizziness, weakness or difficulty managing secretions Currently undergoing chemotherapy, last session 3 days ago. Next session scheduled in 3 weeks. [facility] Medical History Knee pain, bilateral Osteoarthritis of left knee Right serous otitis media Anxiety Essential tremor Acute bronchitis Breast cancer screening by mammogram Anserine bursitis Obesity (BMI 30-39.9) Osteopenia Gallbladder polyp Anxiety Osteoarthritis of knee Overweight (BMI 25.0-29.9) Fatty liver Lumbar degenerative disc disease Vitamin D deficiency Hypercholesterolemia Lactose intolerance Allergic rhinitis Asthma Surgical History Hx of colonoscopy History of hysterectomy, supracervical Family History Father Diabetes Mother No problems noted. 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 Answers questions appropriately. Fatigued Skin: warm, dry, intact HEENT: TMs intact bilaterally, no redness. Posterior pharynx erythematous without exudate. Moist oral mucosa. Sclera without icterus or injection. Cardiac: External chest normal in appearance. Respiratory: LSCTAB. Abdomen: without gross distension. Neurological: Oriented to person, place, time and situation. Thought process intact. Psychiatric: Appropriate mood and affect. Good judgment and insight. Results AMB Rapid Strep AMB Rapid Strep Positive Last Edit by Lisa Ash CMA on 08/20/23 16:35 Results Reviewed Results Reviewed: Laboratory Last Values Strep Scn Rapid Clinic Positive 08/20/23 16:30 Assessment & Plan Assessment & Plan (1) Strep pharyngitis: Code(s): J02.0 - Streptococcal pharyngitis Plan Patient presented to the walk-in today with complaints of sore throat Rapid strep positive Amoxicillin 500 mg twice daily for 10 days Rest, drink plenty of fluids. Tylenol as needed Discussed preventative measures including no sharing of drinks, utensils or kissing. Dispose of tooth brush every 3 days and at completion of the antibiotics. All questions and concerns were answered, patient agrees with plan Follow with primary care or return to the clinic for any new or worsening symptoms Orders: Orders AMB Rapid Strep Screen Today Andrew Hughes MD Z13.9 - Encounter for screening, unspecified Medications: New amoxicillin 500 mg PO TID 10 days 30 caps 0RF Kaitlynn Allen APRN, EHS ENGINEER Coding Level of Care Code Est Pt Level 3 (94956) Diagnoses Strep pharyngitis J02.0
== END 2023-08-20 16:46 | disposition home or self-care (01) ==
PROVIDERS: PCP Internal Medicine; Visit Provider Registered Nurse Emergency
DX: J02.0 Streptococcal pharyngitis (principal); J02.9 Acute pharyngitis, unspecified
CPT/HCPCS: 87880; 99213

== ENCOUNTER 2023-08-31 07:35 | Outpatient (REF) | payer OTHER, SELFPAY ==
--- NOTE | ~2023-08-31 | MM_ITS ---
EXAMINATION: MM DIAGNOSTIC DIGITAL BREAST TOMOSYNTHESIS, BILATERAL CLINICAL INFORMATION: Known left breast carcinoma status post neoadjuvant chemotherapy. COMPARISON: Mammography: 09/26/2022, 09/20/2022, 08/25/2022, 08/02/2021, 01/12/2020. MRI breasts 07/23/2023. Left breast diagnostic ultrasound 03/01/2023. TECHNIQUE: Digital breast tomosynthesis is performed in both the craniocaudal and mediolateral oblique views along with computer-aided detection (CAD). Synthesized 2D images are generated from the tomosynthesis. FINDINGS: The breasts are heterogeneously dense, which may obscure small masses (ACR BI-RADS breast composition Category c). Right breast: No masses, suspicious grouped calcifications, or areas of architectural distortion are present in the right breast. No skin or axillary abnormalities. No significant interval change. Left breast: There are 2 biopsy markers in the anterior left breast at the 5:00 and 6:00 axes. The previously seen tumor in this region has become near imperceptible on mammography and correlation should be made with the recent breast MRI 07/23/2023. Left axillary biopsy clip present in otherwise unremarkable appearing lymph node. No new adenopathy appreciated. Again, refer to the recent breast MRI of 07/23/2023. MM/MM tomosynthesis diagnostic BI IMPRESSION: There are no significant changes from the prior study in the right breast. No evidence of right breast malignancy. Previously seen tumor in the left breast at the 5:00 and 6:00 axes is no longer well seen on today's mammographic exam. The biopsy clips are seen. Please refer to the recent breast MRI of 07/23/2023 for more detailed evaluation of residual tumor burden. ASSESSMENT: BI-RADS BI-RADS 6 - Known biopsy proven malignancy RECOMMENDATION: 1. Patient should be managed based on the clinical impression. 2. Otherwise, routine annual screening mammography. Results were provided to the patient at time of visit by the technologist. This patient's information was entered into a reminder system with a target due date for their next mammogram.
== END 2023-08-31 07:36 | disposition home or self-care (01) ==
LOC: HO.MAMMO 07:35
PROVIDERS: PCP Internal Medicine; Visit Provider Internal Medicine
DX: Z85.3 Personal history of malignant neoplasm of breast (principal)
CPT/HCPCS: 77062; 77066

== ENCOUNTER → 2023-08-31 07:45 | Outpatient (BNV) | payer OTHER, SELFPAY | PROVIDERS: PCP Internal Medicine; Visit Provider Radiology Diagnostic Radiology | DX: Z85.3 Personal history of malignant neoplasm of breast (principal) | CPT/HCPCS: 77062; 77066 ==

== ENCOUNTER 2023-10-17 09:01 | Outpatient (AMB) | payer OTHER, SELFPAY ==
--- NOTE | 2023-10-17 09:05 | MHC.OFFVIS ---
Vital Signs 10/17/23 09:09 Height 5 ft 5 in Weight 163 lb BMI 27.1 BP 130/85 Blood Pressure Location Rt brachial Position Sitting Pulse 85 Intake Visit Reasons: Finished chemo, discuss surgery Intake Note: Patient here to discuss mastectomy surgery. 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 Completed chemotherapy this SundayOctober 18. Patient c/o: no concerns. MM: 08-31-2023. Privacy Attorney Required: No Accompanied by: Self / Same As Patient Allergies seafood Allergy (Mild, Verified 09/07/23 08:56) Swelling ephedrine [From Primatene] Adverse Reaction (Severe, Verified 09/07/23 08:56) Shortness of Breath/Asthma Attack diphenhydramine [From Benadryl] Adverse Reaction (Intermediate, Verified 09/07/23 08:56) Shortness of Breath shellfish derived Adverse Reaction (Mild, Verified 09/07/23 08:56) Muscle Pain HPI Comments Details: Patient presents for follow-up. She is having her last round of chemotherapy this Sunday. The meantime, follow-up MRI and breast ultrasound demonstrate marked response/decreased in size of her left breast lesion. Patient is scheduled for a follow-up ultrasound in the very near future. In the meantime, all things considered she is doing quite well aside from occasional side effects from the chemotherapy. She no longer can palpate the lesion under breast. [facility] Medical History Knee pain, bilateral Osteoarthritis of left knee Right serous otitis media Anxiety Essential tremor Acute bronchitis Breast cancer screening by mammogram Anserine bursitis Obesity (BMI 30-39.9) Osteopenia Gallbladder polyp Anxiety Osteoarthritis of knee Overweight (BMI 25.0-29.9) Fatty liver Lumbar degenerative disc disease Vitamin D deficiency Hypercholesterolemia Lactose intolerance Allergic rhinitis Asthma Surgical History Hx of colonoscopy History of hysterectomy, supracervical Family History Father Diabetes Mother No problems noted. 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 Left breast demonstrates no obvious palpable mass, discharge, skin changes, or periclavicular axillary adenopathy. GI Other: Abdomen, benign Assessment & Plan Assessment & Plan (1) Breast cancer: Comment: September 2022Invasive ductal carcinoma, grade 3, with lobular features. Code(s): C50.919 - Malignant neoplasm of unspecified site of unspecified female breast Category: Surgical Plan Current plan is for the patient to complete her neoadjuvant chemotherapy, received a follow-up ultrasound, and consideration for lumpectomy/sentinel lymph node biopsy in the near future once she has convalesced from her chemotherapy. She will see me once she has been cleared by Oncology for her above-mentioned procedures. All questions answered Coding Level of Care Code Est Pt Level 4 (42212) Diagnoses Breast cancer C50.919
[2023-10-17 09:09] VITALS: BP 130/85; PULSE 85; BMI 27.1
== END 2023-10-17 09:24 | disposition home or self-care (01) ==
PROVIDERS: PCP Internal Medicine; Visit Provider Surgery
DX: C50.912 Malignant neoplasm of unspecified site of left female breast (principal)
CPT/HCPCS: 99214

== ENCOUNTER → 2023-10-17 09:01 | Outpatient (BNVA) | payer OTHER, SELFPAY | PROVIDERS: PCP Internal Medicine; Visit Provider Surgery | DX: C50.412 Malignant neoplasm of upper-outer quadrant of left female breast (principal); Z92.21 Personal history of antineoplastic chemotherapy | CPT/HCPCS: 99212 ==

== ENCOUNTER 2023-10-31 15:27 | Outpatient (REF) | payer OTHER, SELFPAY ==
--- NOTE | ~2023-10-31 | US_ITS ---
EXAMINATION: US DIAGNOSTIC ULTRASOUND BREAST, LEFT CLINICAL INFORMATION: Follow-up ultrasound after completion of chemotherapy.. COMPARISON: 03/01/2023, 09/20/2022 left breast ultrasound. MRI breasts 07/23/2023. TECHNIQUE: Ultrasound of the breast is performed with real-time do scale imaging and color Doppler. FINDINGS: Both myself and the technologist scanned. In the anterior aspect of the right breast at the 5:00 axis, 1 cm from the nipple, there has been significant decrease in the size of the irregular tumor mass, which now is undetectable via ultrasound with only the biopsy clip present (previously measuring 1.3 cm in diameter), and just superior and mildly lateral abutting the stellate aspect measures 6 x 3 x 4 mm in diameter (previously 9 x 9 x 4 mm). The axillary metastasis has significantly decreased in size as well, currently measuring 1.0 x 0.4 x 0.6 cm (previously measuring 1.0 x 0.8 x 1.2 cm). The majority of the hypoechoic aspect of this lesion may represent the hydrated hydromark aspect of the biopsy clip. No enhancement was seen on recent MR. No new abnormalities are noted within the imaged left breast parenchyma. US/US breast LT limited mamm only IMPRESSION: Significant decrease in size in all 3 sites of tumor involvement as detailed. The 5:00 tumor mass closest to the nipple is now undetectable via ultrasound. Findings represent excellent response to therapy. Results were discussed with the patient at time of visit. Continued surgical and oncological management recommended. ASSESSMENT: BI-RADS 6 - Known biopsy proven malignancy RECOMMENDATION: 1. Patient should be managed based on the clinical impression.
== END 2023-10-31 15:28 | disposition home or self-care (01) ==
LOC: HO.MAMMO 15:27
PROVIDERS: PCP Internal Medicine; Visit Provider Internal Medicine Medical Oncology
DX: Z85.3 Personal history of malignant neoplasm of breast (principal)
CPT/HCPCS: 76642

== ENCOUNTER → 2023-10-31 15:30 | Outpatient (BNV) | payer OTHER, SELFPAY | PROVIDERS: PCP Internal Medicine; Visit Provider Radiology Diagnostic Radiology | DX: C50.912 Malignant neoplasm of unspecified site of left female breast (principal) | CPT/HCPCS: 76642 ==

== ENCOUNTER 2023-11-05 09:08 | Outpatient (AMB) | payer OTHER, SELFPAY ==
[2023-11-05 09:14] VITALS: BP 136/88; PULSE 74; BMI 27.8
--- NOTE | 2023-11-05 09:14 | MHC.OFFVIS ---
Vital Signs 11/05/23 09:14 Height 5 ft 5 in Weight 167 lb BMI 27.8 BP 136/88 Blood Pressure Location Rt brachial Position Sitting Pulse 74 Intake Visit Reasons: Follow up Breast Cancer Intake Note: Patient here for f/u breast exam. Discuss lumpectomy. Hx of breast CA. Reports finished chemo in September. Patient c/o: no concerns. Lt br US: 10-31-2023. MM: 08-31-2023. Compensator Required: No Accompanied by: Self / Same As Patient Allergies seafood Allergy (Mild, Verified 11/05/23 09:15) Swelling ephedrine [From Primatene] Adverse Reaction (Severe, Verified 11/05/23 09:15) Shortness of Breath/Asthma Attack diphenhydramine [From Benadryl] Adverse Reaction (Intermediate, Verified 11/05/23 09:15) Shortness of Breath shellfish derived Adverse Reaction (Mild, Verified 11/05/23 09:15) Muscle Pain HPI Comments Details: Patient presents for follow-up status post neoadjuvant therapy for left breast cancer. Patient has had tremendous response demonstrated both clinically and radiographically. Patient's oncologist, Dr. Dan contacted me and said she can undergo lumpectomy/sentinel lymph node biopsy at the end of October at the earliest when her chemotherapy course should be out of her system. [facility] Medical History Knee pain, bilateral Osteoarthritis of left knee Right serous otitis media Anxiety Essential tremor Acute bronchitis Breast cancer screening by mammogram Anserine bursitis Obesity (BMI 30-39.9) Osteopenia Gallbladder polyp Anxiety Osteoarthritis of knee Overweight (BMI 25.0-29.9) Fatty liver Lumbar degenerative disc disease Vitamin D deficiency Hypercholesterolemia Lactose intolerance Allergic rhinitis Asthma Surgical History Hx of colonoscopy History of hysterectomy, supracervical Family History Father Diabetes Mother No problems noted. 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 Right breast exam benign. Left breast demonstrates no evidence of any obvious breast mass or axillary adenopathy. Assessment & Plan Assessment & Plan (1) Breast cancer: Comment: September 2022Invasive ductal carcinoma, grade 3, with lobular features. Code(s): C50.919 - Malignant neoplasm of unspecified site of unspecified female breast Category: Surgical (2) Axillary lymphadenopathy: Code(s): R59.0 - Localized enlarged lymph nodes Category: Surgical (3) Abnormal finding on mammography, microcalcification: Code(s): R92.0 - Mammographic microcalcification found on diagnostic imaging of breast Category: Surgical Plan Patient has had a very good response to neoadjuvant therapy. She is an optimal candidate for lumpectomy and sentinel lymph node biopsy.. Risks, benefits , alternatives of procedure reviewed included but not limited to bleeding, infection, recurrence, numbness, pain, scarring the patient wished to proceed. Patient will undergo localizer placement and then they prior nuclear med injection for the above-mentioned procedure. All questions answered. Arrangements were made for this. Coding Level of Care Code Est Pt Level 5 (04621) Diagnoses Breast cancer C50.919 Axillary lymphadenopathy R59.0 Abnormal finding on mammography, microcalcification R92.0
== END 2023-11-05 09:39 | disposition home or self-care (01) ==
PROVIDERS: PCP Internal Medicine; Visit Provider Surgery
DX: C50.912 Malignant neoplasm of unspecified site of left female breast (principal); R59.0 Localized enlarged lymph nodes; R92.0 Mammographic microcalcification found on diagnostic imaging of breast
CPT/HCPCS: 99214

== ENCOUNTER → 2023-11-05 09:08 | Outpatient (BNVA) | payer OTHER, SELFPAY | PROVIDERS: PCP Internal Medicine; Visit Provider Surgery | DX: R59.0 Localized enlarged lymph nodes (principal); R92.0 Mammographic microcalcification found on diagnostic imaging of breast; C50.919 Malignant neoplasm of unspecified site of unspecified female breast | CPT/HCPCS: 99212 ==

== ENCOUNTER → 2023-11-29 08:00 | Outpatient (BNV) | payer OTHER, SELFPAY | PROVIDERS: PCP Internal Medicine; Visit Provider Radiology Diagnostic Radiology | DX: C50.812 Malignant neoplasm of overlapping sites of left female breast (principal) | CPT/HCPCS: 19281; 19285 ==

== ENCOUNTER → 2023-12-05 12:11 | Outpatient (REF) | payer OTHER, SELFPAY ==
--- NOTE | ~2023-12-05 | NM_ITS ---
EXAMINATION: NM LYMPH SCINTIGRAPHY CLINICAL INFORMATION: 67-year-old female with left sided multicentric IDC status post neoadjuvant chemotherapy, sentinel node for preoperative planning. COMPARISON: RFID localization 3 sites left breast 11/29/2023. MR breast 11/18/2022, and 07/26/2023. Multisite core biopsy 09/26/2022. TECHNIQUE: 4 aliquots of 0.125 mCi technetium 99m-sulfur colloid were sterilely injected into the periareolar region at 12:00, 3:00, 6:00, and 9:00. Subsequently, immediate, and 30 minute delayed images were obtained in the anterior, YESSI, and left lateral projections. FINDINGS: Immediate image demonstrates for sites of activity surrounding the left areola. 30 minute delayed image demonstrates extensive migration of radiotracer into the left low axilla and mid axilla, highlighting several left axillary lymph nodes, of which the most intense is presumably the sentinel lymph node. Patient's surgery is planned for following day. NM/NM sentinel node w imaging IMPRESSION: Examination demonstrating numerous left axillary lymph nodes with activity.
== END ==
LOC: HO.NUCMED 12:11
PROVIDERS: PCP Internal Medicine; Visit Provider Surgery
DX: R59.0 Localized enlarged lymph nodes (principal); C50.919 Malignant neoplasm of unspecified site of unspecified female breast
CPT/HCPCS: 78195; A9541

== ENCOUNTER 2023-12-06 05:38 | Day surgery (SDC) | payer OTHER, SELFPAY ==
[2023-12-03 15:27] VITALS: BMI 27.8
--- NOTE | 2023-12-04 13:34 | P.CONAN_ITS ---
HPI - Anesthesia Eval Consult details Narrative: 67yo F for Left Breast Lumpectomy w/LOCalizer, [place] Node Biopsy PMFSH Active Problems Active Problems: All Active Problems Strep pharyngitis (Acute) Tubular adenoma of colon (Acute) Breast cancer (Acute) Axillary lymphadenopathy (Acute) Abnormal finding on mammography, microcalcification (Acute) Osteoarthritis of knees, bilateral (Acute) Constipation (Acute) COVID-19 virus infection (Acute) Annual physical exam (Acute) Impaired glucose tolerance (Acute) Cervical cancer screening (Acute) Annual physical exam (Acute) Osteoarthritis of knee (Acute) Obesity (BMI 30-39.9) (Acute) Overweight (BMI 25.0-29.9) (Acute) Lumbar degenerative disc disease (Acute) Hypercholesterolemia (Acute) Asthma (Acute) Past Medical History Medical History Knee pain, bilateral Osteoarthritis of left knee Anxiety Essential tremor Acute bronchitis Anserine bursitis Obesity (BMI 30-39.9) Osteopenia Gallbladder polyp Overweight (BMI 25.0-29.9) Fatty liver Lumbar degenerative disc disease Vitamin D deficiency Hypercholesterolemia Lactose intolerance Allergic rhinitis Asthma Family History Family History Father Diabetes Mother No problems noted. Brother Myocardial infarction Hypertension Sister Bursitis Lewy body dementia Parkinson disease Sister Diabetes Brother Asthma Surgical History Surgical History Hx of colonoscopy History of hysterectomy, supracervical Social History Social History Household Members: Spouse Household Members Other:: 1 Housing: House Alcohol intake: current Alcohol intake frequency: holidays/special occasions only Comment: sips Patient Tobacco Use Status: Never used Tobacco Tobacco use type: Cigarette e-Cigarette/Vaping Use: Never Used Second Hand Smoke Exposure: No service: No Current occupational status: employed 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 Sexual orientation: Straight/Heterosexual Gender identity: Female Cognitive needs: No Hearing needs: No Vision needs: Yes Meds Allergies Allergy/AdvReac Type Severity Reaction Status Date / Time seafood Allergy Mild Swelling Verified 12/17/23 11:36 ephedrine [From Primatene] AdvReac Severe Shortness Verified 12/17/23 11:36 of Breath/Asthma Attack diphenhydramine AdvReac Intermediate Shortness Verified 12/17/23 11:36 [From Benadryl] of Breath shellfish derived AdvReac Mild Muscle Pain Verified 12/17/23 11:36 Exam Height,Weight and Vital Signs: Height 5 ft 5 in Weight 75.75 kg Pertinent Lab Results Pertinent Lab Results: Laboratory Tests 12/04/23 09:00 WBC 4.7 L Hgb 11.5 L Hct 33.9 L Plt Count 159 L Sodium 141 Potassium 3.2 L Chloride 106 Carbon Dioxide 28 BUN 16 Creatinine 0.81 Narrative Narrative: ECHO 07/2023 Conclusions: - Normal LV systolic function with LVEF of 60-65% EKG 06/2023 Vent. Rate : 071 BPM Atrial Rate : 071 BPM P-R Int : 150 ms QRS Dur : 086 ms QT Int : 414 ms P-R-T Axes : -04 -27 026 degrees QTc Int : 449 ms Normal sinus rhythm Normal ECG When compared with ECG of 28-NOV-2013 10:44, No significant change was found Assessment and Plan Assessment Anesthesia Assessment: Chart Reviewed
--- NOTE | 2023-12-05 11:11 | MHC.SHP ---
Pre-Procedural Eval Section A - 24 Hr Update-Section A only Date of Service: 12/06/23 The patient is an INPATIENT: No Changes since office visit: No Cold of Flu in the past 2 weeks, No New Medical Problems, No Changes in Medication and No Patient answered all questions Section B - Complete if H&P > 30 days Chief Complaint: Mammographic microcalcification,enlarged lymph nod Allergies: Allergies Allergy/AdvReac Type Severity Reaction Status Date / Time seafood Allergy Mild Swelling Verified 12/04/23 08:10 ephedrine [From Primatene] AdvReac Severe Shortness Verified 12/04/23 08:10 of Breath/Asthma Attack diphenhydramine AdvReac Intermediate Shortness Verified 12/04/23 08:10 [From Benadryl] of Breath shellfish derived AdvReac Mild Muscle Pain Verified 12/04/23 08:10 Review of Systems Sugical H&P ROS: Negative: Constitution, Cardiovascular, Respiratory, Neurological, Psychiatric, Hem-Onc, Allergic/Immunologic, Gastrointestinal, Genitourinary, Musculoskeletal, Integumentary, Endocrine and Eyes/Ears/Nose/Throat Exam Surgical H&P Exam: Normal: HEENT, Normal: Heart, Normal: Lungs, Normal: Extremities, Normal: Abdomen, Normal: Skin and Normal: Neurological Plan I have reviewed the history and physical and performed a pertinent physical examination on my patient. No changes have occurred unless specified. Time Spent With Patient Time: Total time managing care of this patient today ____ minutes.
[2023-12-06] VITALS (13 sets, daily range): BP systolic 116–160; BP diastolic 75–92; PULSE 56–68; RESP 14–16; TEMP 35.9–36.2; O2SAT 95–100; BMI 28.0
--- NOTE | ~2023-12-06 | MM_ITS ---
EXAMINATION: NEEDLE LOCALIZATION SPECIMEN FROM THE LEFT BREAST CLINICAL INFORMATION: 67 year female with multicentric IDC left breast and axilla, status post neoadjuvant chemotherapy, 2 site lumpectomy after 3 site localization. COMPARISON: RFID localization 3 sites left breast 11/29/2023. MR breast 11/18/2022, and 07/26/2023. Multisite core biopsy 09/26/2022. [place] node left breast 12/05/2023. TECHNIQUE: Single radiograph of the central left breast specimen was obtained. FINDINGS: Specimen radiograph demonstrates both RFID tags contained within, and both biopsy clips (butterfly and open coil) contained along the margin of the specimen. No radiograph was obtained of the axillary excision or RFID tag or biopsy clip. As per Dr. De Dios, the axillary RF ID tag fell out . He states the excised several abnormal axillary lymph nodes. MM/MM surgical specimen IMPRESSION: Excision of 2 the targeted lesions as detailed. No axillary excision radiograph submitted. These findings were communicated to Dr. De Dios in the OR at the time of specimen radiography.
[2023-12-06] MEDS: Lactated Ringers 1,000 ML 100 ML IVCONT (06:25)
[2023-12-06 07:00] LABS: Alanine Aminotransferase 14 U/L (0-31); Albumin Level 3.8 g/dL (3.5-5.0); Alkaline Phosphatase 100 U/L (39-117); Anion Gap 8 (12-20); Aspartate Amino Transferase 18 U/L (5-31); Bilirubin Total 0.4 mg/dL (0.0-1.0); Blood Urea Nitrogen 18 mg/dL (9-16); Calcium 9.2 mg/dL (8.4-10.2); Carbon Dioxide 31 mmol/L (22-29); Chloride 108 mmol/L (96-108); Creatinine Clr Calc Pharmacy 68.9; Estimated Glomerular Filt Rate > 60; Glucose Random 99 mg/dL (60-115); Potassium 3.9 mmol/L (3.3-5.1); Sodium 143 mmol/L (135-145); Total Protein 6.9 g/dL (6.5-8.0)
--- NOTE | 2023-12-06 07:10 | HO.ANESPROP2 ---
[facility] Active Problems Active Problems: All Active Problems Strep pharyngitis (Acute) Tubular adenoma of colon (Acute) Breast cancer (Acute) Axillary lymphadenopathy (Acute) Abnormal finding on mammography, microcalcification (Acute) Osteoarthritis of knees, bilateral (Acute) Constipation (Acute) COVID-19 virus infection (Acute) Annual physical exam (Acute) Impaired glucose tolerance (Acute) Cervical cancer screening (Acute) Annual physical exam (Acute) Osteoarthritis of knee (Acute) Obesity (BMI 30-39.9) (Acute) Overweight (BMI 25.0-29.9) (Acute) Lumbar degenerative disc disease (Acute) Hypercholesterolemia (Acute) Asthma (Acute) Past Medical History Medical History Knee pain, bilateral Osteoarthritis of left knee Anxiety Essential tremor Acute bronchitis Anserine bursitis Obesity (BMI 30-39.9) Osteopenia Gallbladder polyp Overweight (BMI 25.0-29.9) Fatty liver Lumbar degenerative disc disease Vitamin D deficiency Hypercholesterolemia Lactose intolerance Allergic rhinitis Asthma Functional capacity: independent ambulation Patient : No Family History Family History Father Diabetes Mother No problems noted. Brother Myocardial infarction Hypertension Sister Bursitis Lewy body dementia Parkinson disease Sister Diabetes Brother Asthma Family history of problems with anesthesia: No Surgical History Surgical History Hx of colonoscopy History of hysterectomy, supracervical History of Problems with Anesthesia: No Social History Social History Household Members: Spouse Household Members Other:: 1 Housing: House Alcohol intake: current Alcohol intake frequency: holidays/special occasions only Comment: sips Patient Tobacco Use Status: Never used Tobacco Tobacco use type: Cigarette e-Cigarette/Vaping Use: Never Used Second Hand Smoke Exposure: No Use of substances other than those prescribed or required for medical reasons: No Have you been hit, kicked, punched, or otherwise hurt by someone within the past year? 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 Sexual orientation: Straight/Heterosexual Gender identity: Female Cognitive needs: No Hearing needs: No Vision needs: Yes Meds Allergies Allergy/AdvReac Type Severity Reaction Status Date / Time seafood Allergy Mild Swelling Verified 12/06/23 06:06 ephedrine [From Primatene] AdvReac Severe Shortness Verified 12/06/23 06:06 of Breath/Asthma Attack diphenhydramine AdvReac Intermediate Shortness Verified 12/06/23 06:06 [From Benadryl] of Breath shellfish derived AdvReac Mild Muscle Pain Verified 12/06/23 06:06 Active Medications: Current Medications Albuterol Sulfate (Albuterol Sulfate (0.083%) 2.5 Mg/3 Ml Vial.Neb) 2.5 mg INHALE ONCE PRN PRN Reason: Shortness of Breath/Wheezing Lactated Ringer's (Lr) 1,000 mls @ 100 mls/hr IVCONT .Q10H RADHA Last Admin: 12/06/23 06:25 Dose: 100 mls/hr Exam Height,Weight and Vital Signs: Height 5 ft 5 in Weight 76.204 kg Last Vital Signs Temp 96.6 F L 12/06/23 06:21 Pulse 63 12/06/23 06:21 Resp 16 12/06/23 06:21 BP 137/88 12/06/23 06:21 Pulse Ox 98 12/06/23 06:21 O2 Del Method Room Air 12/06/23 06:21 Pertinent Lab Results Pertinent Lab Results: Laboratory Tests 12/06/23 06:42 Sodium 143 Potassium 3.9 D Chloride 108 Carbon Dioxide 31 H Anion Gap 8 L BUN 18 H Creatinine 0.83 Estim Creat Clear Calc 68.9 Estimated GFR > 60 Random Glucose 99 Calcium 9.2 Total Bilirubin 0.4 AST 18 ALT 14 Alkaline Phosphatase 100 Total Protein 6.9 Albumin 3.8 Airway Mallampati Class: II TM Dist: >3cm Neck ROM: Full Heart: RRR Lungs: CTA Assessment and Plan Assessment Anesthesia Assessment: Anesthesia Plan Discussed Final Anesthetic Review Family History of Problems with Anesthesia: No History of Problems with Anesthesia: No NPO: Yes ASA Class: II Final Preanesthetic Review: Meds/Allgs Chart Reviewed, Consent Obtained/Reviewed and Anes Risks/Benef Reviewed Patient Risk: Intermediate Procedure Risk: Low Anesthetic Plan Anesthetic Plan: GA Disposition: Standard PACU
--- NOTE | 2023-12-06 09:28 | W.PM.OPN ---
Operative Note Operative Note Date of Service: 12/06/23 Narrative: Preoperative diagnosis: [] Left breast cancer. Status post neoadjuvant therapy Postop diagnosis: [] The same Procedure [] left breast lumpectomy with localizer (inferior breast/6 o'clock position), sentinel lymph nodes excision with localizer and blue dye Surgeon: [] Lanre Reading Recovery Teacher: [] Gem Type of Anesthesia: [] General Indication for surgery: [] Uneventful lumpectomy with confirmation of 2 placed localizers in postprocedure mammogram. [place] lymph node with multiple lymph nodes both measuring high on the [place] counter (maximum value at 3000) and with blue dye Findings: [] Patient brought to the operating room, placed on operative table supine position, after an adequate level of general anesthesia was induced, patient underwent Mabel areolar blue dye infiltration with 5 minute massaging. Breast and axilla were then prepped and draped in usual sterile fashion. Using an infraumbilical curvilinear incision in conjunction with a 2 localizers, this carried down through skin, subcutaneous tissue were superior and inferior skin flaps were developed and the very generous portion of lumpectomy specimen was performed using Bovie including both localizers. Specimen as noted above was confirmed with localized. Frozen section demonstrated a closed inferior margin and further inferior margin was taken using Bovie. The next the axilla was approached using a curvilinear infra-axillary incision and carried down through skin, subcu tissue, and the both hot spot, and blue dye area was identified and multiple hot blue nodes were uneventfully excised and sent to pathology. Both wounds were irrigated, secured hemostasis, and closed using interrupted inverted dermal 3-0 Vicryl sutures followed by Steri-Strips and sterile dressings. Each wound was infiltrated 0.5% Marcaine/1% lidocaine at completion. Sponge, needle, and instrument counts reported correct. Patient tolerated the procedure well and emerged from anesthesia stable condition. EBL minimal
[2023-12-06] MEDS: Acetaminophen 1,000 MG/100 ML PIGGYBACK 400 MG IV (09:37)
[2023-12-06] MEDS: HYDROmorphone HCl 0.5 MG/0.5 ML SYRINGE IVPUSH ×2 (09:48→10:02)
[2023-12-06] MEDS: ondansetron HCL 4 MG/2 ML VIAL IVPUSH (10:39)
[2023-12-06] MEDS: Scopolamine 1.5 MG PATCH.TD.3 EAR-BEHIND (11:45)
--- NOTE | 2023-12-06 13:33 | PC.NURSE ---
11:05. Patient arrived to discharge area in w/c and had vomited x 1 on ride over from PACU small amount of clear liquid. Patient given cool towel and stated she felt better after vomiting. Patient with emesis bag and discharge instructions attempted after each round of nausea had passed. Author texted dr. davis and dr. verma to assess but both were in the OR. Patient was diaphoretic and pallor was not baseline so Dr. Le asked to assess. Patient A+O x 3 throughtout. VS WNL. 144/93, 61, 18, 98RA. Patient denied pain. ice pack to surgical area. Dr. Le reviewed OR/PACU medications that were given and ordered scopolamine patch - Patient/ family educated regarding it and removal. Patient vomited x 1 clear liquid small amount again prior to patch placement and stated she felt much better. Patch placed. Family present and discharge instructions reviewed. Patient brought to car with emesis bag and no bouts of nausea to car. Pallor and diaphoresis improved at discharge.
--- NOTE | 2023-12-06 18:32 | HO.POSTANES ---
Post Anesthesia Evaluation Post Anesthesia Evaluation Date of Service: 12/06/23 Vital Signs: Vital Signs Temp Pulse Resp BP Pulse Ox O2 Del Method 12/06/23 10:52 97.1 F 65 15 159/89 H 98 Room Air 12/06/23 10:38 68 16 148/79 H 97 Room Air 12/06/23 10:23 60 16 127/85 96 Room Air 12/06/23 10:08 57 14 121/80 95 Room Air 12/06/23 10:02 56 14 125/78 97 Room Air 12/06/23 10:02 14 12/06/23 09:58 57 14 116/75 97 Room Air 12/06/23 09:53 58 14 125/75 97 Room Air 12/06/23 09:48 58 16 134/85 98 Room Air 12/06/23 09:48 16 12/06/23 09:37 59 16 147/86 H 100 Room Air 12/06/23 09:32 61 16 151/90 H 99 Room Air 12/06/23 09:27 61 16 150/92 H 97 Room Air 12/06/23 09:22 97 F 62 16 160/88 H 99 Room Air Anesthesia: General LMA Mental Status: Awake Pain Control: Satisfactory Nausea/Vomiting: None Hydration: Adequate Anesthesia-Related Issues: No Anes. Related Issues
== END 2023-12-06 12:05 | disposition home or self-care (01) ==
PROVIDERS: Anesthesiology; PCP Internal Medicine; Visit Provider Surgery
PROC: (CPT 19301; principal; 2023-12-06 07:30)
PROC: (CPT 19301; 2023-12-06 07:30)
DX: C50.912 Malignant neoplasm of unspecified site of left female breast (principal); C77.3 Secondary and unspecified malignant neoplasm of axilla and upper limb lymph nodes; J45.909 Unspecified asthma, uncomplicated
CPT/HCPCS: 19301; 38525; 38900; 36415; 80053; 88305; 88307; 88329; 88341; 88342; C1889; J0131; J0665; J0690; J1100; J1170; J2250; J2405; J2704; J3010; Q9968

== ENCOUNTER → 2023-12-06 05:38 | Outpatient (BNV) | payer OTHER, SELFPAY | PROVIDERS: PCP Internal Medicine; Visit Provider Surgery | DX: C50.912 Malignant neoplasm of unspecified site of left female breast (principal) | CPT/HCPCS: 19301; 38525 ==

== ENCOUNTER 2023-12-17 11:31 | Outpatient (AMB) | payer OTHER, SELFPAY ==
--- NOTE | 2023-12-17 11:35 | A.OFFVIS_ITS ---
Intake Visit Reasons: S/P Lt. breast lumpectomy w/localizer and SN bx Intake Note: Patient here s/p Lt breast lumpectomy w/localizer and SN bx. Reports incisions healing well. Patient c/o: tenderness, redness. Still taking rx pain meds as needed. 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 Aside from incisional discomfort which is slowly but steadily improving patient was otherwise doing well. She is tolerating a diet. Having regular bowel habits. It is increasing her activity level.. Pathology results were reviewed [facility] Medical History Knee pain, bilateral Osteoarthritis of left knee Anxiety Essential tremor Acute bronchitis Anserine bursitis Obesity (BMI 30-39.9) Osteopenia Gallbladder polyp Overweight (BMI 25.0-29.9) Fatty liver Lumbar degenerative disc disease Vitamin D deficiency Hypercholesterolemia Lactose intolerance Allergic rhinitis Asthma Surgical History Hx of colonoscopy History of hysterectomy, supracervical Family History Father Diabetes Mother No problems noted. 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 Patient has some tape burn in the central portion of the left breast incision. Bacitracin and dressing were applied. Assessment & Plan Assessment & Plan (1) Status post left breast lumpectomy: Code(s): Z98.890 - Other specified postprocedural states Category: Surgical (2) Status post lymph node biopsy: Code(s): Z98.890 - Other specified postprocedural states Category: Surgical Plan Patient is to follow up in the proximally 2 weeks time. She has been given local instructions regarding the tape burn and will see me as directed or p.r.n.. All questions answered. Once she has fully convalesced from the surgery, she will follow with oncology and radiation therapy as well. Coding Level of Care Code Global (34792) Diagnoses Status post left breast lumpectomy Z98.890 Status post lymph node biopsy Z98.890
== END 2023-12-17 11:59 | disposition home or self-care (01) ==
PROVIDERS: PCP Internal Medicine; Visit Provider Surgery
DX: Z98.890 Other specified postprocedural states (principal)
CPT/HCPCS: 99024

== ENCOUNTER → 2023-12-17 11:31 | Outpatient (BNVA) | payer OTHER, SELFPAY | PROVIDERS: PCP Internal Medicine; Visit Provider Surgery | DX: Z98.890 Other specified postprocedural states (principal) | CPT/HCPCS: 99212 ==

== ENCOUNTER 2023-12-25 15:39 | Outpatient (AMB) | payer OTHER, SELFPAY ==
--- NOTE | 2023-12-25 16:01 | A.OFFPC_ITS ---
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 Required: No Accompanied by: Self / Same As Patient Allergies seafood Allergy (Mild, Verified 12/25/23 16:03) Swelling ephedrine [From Primatene] Adverse Reaction (Severe, Verified 12/25/23 16:03) Shortness of Breath/Asthma Attack diphenhydramine [From Benadryl] Adverse Reaction (Intermediate, Verified 12/25/23 16:03) Shortness of Breath shellfish derived Adverse Reaction (Mild, Verified 12/25/23 16:03) Muscle Pain Medication List - Last Reconciled 12/25/23 by Luna Talbot MD fluticasone propionate 50 mcg/actuation (Flonase Allergy Relief) 2 sprays intranasal DAILY gabapentin 300 mg PO BEDTIME hydrocodone-acetaminophen 5-325 mg 1 tab PO Q4-6H PRN hydroxyzine HCl 25 mg PO TID letrozole 2.5 mg PO DAILY levalbuterol tartrate 45 mcg/actuation (Xopenex HFA) 2 puffs inhalation Q4-6H lidocaine 4% 1 appl topical BID loperamide (Imodium A-D) 2 mg PO Q6H PRN lorazepam 0.5 mg PO BID PRN 15 days montelukast 10 mg PO BEDTIME naproxen 500 mg PO Q12H PRN potassium chloride ER 20 mEq PO DAILY triamcinolone acetonide 0.5% 1 appl topical BID Tobacco use date assessed: 06/15/23 Fall risk assessment: No Falls in past year Last assessed Fall Risk: 12/25/23 Dental Screening Dental Screen Date: 06/15/23 HPI 6 month f/u HPI Details 67-year-old overweight female with a his tory of breast cancer bilateral osteoarthritis hypercholesterolemia asthma impaired glucose tolerance last seen in May 2023. Patient was referred to Gastroenterology for the tubular adenoma. Up-to-date with mammogram up-to-date with bone density patient has regularly followed up with the surgeon as well as the Hematology-Oncology for breast exam status post breast lumpectomy left status post lymph node biopsy. December 05 showing residual carcinoma on the breast 3 of 10 lymph nodes involved metastatic carcinoma. Patient did have nuclear imaging done showing numerous left axillary lymph nodes with activity. Patient will need post lumpectomy radiation and has been referred to Dr. Pisano in [facility]. Patient also had shingles right mid upper back in 11/10/2023. Echocardiogram done in 10/11/2023 normal left ejection fraction 60 65%. [facility] Medical History Knee pain, bilateral Osteoarthritis of left knee Anxiety Essential tremor Acute bronchitis Anserine bursitis Obesity (BMI 30-39.9) Osteopenia Gallbladder polyp Overweight (BMI 25.0-29.9) Fatty liver Lumbar degenerative disc disease Vitamin D deficiency Hypercholesterolemia Lactose intolerance Allergic rhinitis Asthma Surgical History Hx of colonoscopy History of hysterectomy, supracervical Family History Father Diabetes Mother No problems noted. 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 1. Little interest or pleasure in doing things: several days (pt has had on going depression/anxiety for 1 year since finding out about BC) 2. Feeling down, depressed, or hopeless: several days 3. Trouble falling or staying asleep, or sleeping too much: not at all 4. Feeling tired or having little energy: not at all 5. Poor appetite or overeating: not at all 6. Feeling bad about yourself - or that you are a failure or have let yourself or your family down: not at all 7. Trouble concentrating on things, such as reading the newspaper or watching television: not at all 8. Moving or speaking so slowly that other people could have noticed. Or the opposite - being so fidgety or restless that you have been moving around a lot more than usual: not at all 9. Thoughts that you would be better off or of hurting yourself in some way: not at all Total score: 2 Depression Screening Interpretation: Negative Depression Screening Done: Yes Source: Developed by Drs. Barak Hartmann, Lubna Yoder, Garth Jose and colleagues, with an educational marisa from [employer]. Thrive Questionnaire Date Thrive assessed: 06/15/23 AUDIT C Alcohol Use Questionnaire (AUDIT-C) 1. How often do you have a drink containing alcohol?: Monthly or less 2. How many drinks containing alcohol do you have on a typical day when you are drinking?: 1 or 2 3. How often do you have six or more drinks on one occasion?: Never Total Score: 1 CIRO-7 AMB Questionnaire CIRO-7 Date CIRO - 7 assessed: 06/15/23 Source: Developed by Drs. Barak Hartmann, Lubna Yoder, Garth Jose and colleagues, with an educational marisa from [employer]. Physical exam (Primary Care) Vital Signs: Last Vital Signs Pulse 76 12/25/23 16:02 BP 142/86 H 12/25/23 16:02 Pulse Ox 97 12/25/23 16:02 Oxygen Delivery Method Room Air 12/25/23 16:02 BMI result Body Mass Index 28.5 Tobacco/Smoking Status: Tobacco use Status Tobacco use date assessed 06/15/23 12/25/23 16:06 Patient Tobacco Use Status Never used Tobacco 12/25/23 16:06 Tobacco use type Cigarette 12/25/23 16:06 e-Cigarette/Vaping Use Never Used 12/25/23 16:06 PHQ-9: PHQ-9 Score PHQ-9: Total score 2 12/25/23 16:06 Depression Screening Interpretation: Negative Thrive Assessment: Date of Thrive Assessment Date Thrive assessed 06/15/23 12/25/23 16:06 Const General: alert; No acute distress Eyes Conjunctivae: conjunctivae normal Resp Auscultation: clear to auscultation bilaterally Cardio Rate: regular rate Rhythm: regular rhythm GI Inspection: Yes normal to inspection Extrem General: Yes normal to inspection and No edema Assessment and Plan Assessment & Plan (1) Breast cancer: Comment: September 2022Invasive ductal carcinoma, grade 3, with lobular features. Code(s): C50.919 - Malignant neoplasm of unspecified site of unspecified female breast Plan: Patient had left breast lumpectomy and lymph node biopsy. Patient will have post lumpectomy radiation also. Continue to follow-up with Hematology-Oncology (2) Tubular adenoma of colon: Comment: 2018 tubular adenoma Code(s): D12.6 - Benign neoplasm of colon, unspecified Plan: This will need to be rescheduled (3) Hypercholesterolemia: Code(s): E78.00 - Pure hypercholesterolemia, unspecified Plan: Avoid fried foods, chicken skin, eggs, butter margarine, pastries and meat. Be it pork or beef they have a lot of cholesterol (4) Asthma: Code(s): J45.909 - Unspecified asthma, uncomplicated Qualifiers: Asthma severity: mild Asthma persistence: intermittent Asthma complication type: uncomplicated Qualified Code(s): J45.20 - Mild intermittent asthma, uncomplicated Plan: Continue with inhalers on montelukast Xopenex. (5) Allergic contact dermatitis: Code(s): L23.9 - Allergic contact dermatitis, unspecified cause Medications: New triamcinolone acetonide 0.5% 1 appl topical BID 30 grams 0RF L23.9 - Allergic contact dermatitis, unspecified cause lorazepam 0.5 mg PO BID 15 days PRN 30 tabs 0RF anxiety C50.919 - Malignant neoplasm of unspecified site of unspecified female breast Coding Level of Care Code Est Pt Level 4 (64876) Diagnoses Breast cancer C50.919 Tubular adenoma of colon D12.6 Hypercholesterolemia E78.00 Mild intermittent asthma without complication J45.20 Asthma severity: mild Asthma persistence: intermittent Asthma complication type: uncomplicated Allergic contact dermatitis L23.9
[2023-12-25 16:02] VITALS: BP 142/86; PULSE 76; O2SAT 97; BMI 28.5
== END 2023-12-25 16:45 | disposition home or self-care (01) ==
PROVIDERS: PCP Internal Medicine; Visit Provider Internal Medicine
DX: C50.919 Malignant neoplasm of unspecified site of unspecified female breast (principal); D12.6 Benign neoplasm of colon, unspecified; E78.00 Pure hypercholesterolemia, unspecified; J45.20 Mild intermittent asthma, uncomplicated; L23.9 Allergic contact dermatitis, unspecified cause
CPT/HCPCS: 99214

== ENCOUNTER → 2023-12-26 08:41 | Outpatient (REF) | payer OTHER, SELFPAY ==
--- NOTE | 2023-12-26 08:44 | CA_ITS ---
Transthoracic Echocardiogram Patient (Last, First, Middle): Fabiola Abbott, Gender: Female Date of : 1955 Age: 67 Procedure Date: 12/26/2023 Procedure Type: Transthoracic Echocardiogram Location: OP Height: 165.1 cm Weight: 77.57 kg BSA: 1.85 m2 Heart Rate: bpm BP: 132 / 80 mmHg Electrophonic Engineer: Referring MD: Dariela Lott MD Symptoms: chemotherapy, assess LV EF Study Quality: Fair ECG Rhythm: Sinus Conclusions: - The left ventricular systolic function is normal. The visually estimated ejection fraction is between 60-65%. - There is moderately increased left ventricular wall thickness. Findings Left Ventricle Normal left ventricular cavity size. There is moderately increased left ventricular wall thickness. The left ventricular systolic function is normal. The visually estimated ejection fraction is between 60-65%. There is no evidence of regional wall motion abnormalities. LV peak GLS -18.1% (normal). Prior Study Comparison No significant change compared to prior study dated: 09/15/2023. Measurements 2D Linear Measurements IVSd: 1.30 0.6-0.9/0.6-1.0 cm LVIDd: 4.37 3.9-5.3/4.2-5.9 cm LVIDd Index: 2.36 2.4-3.2/2.2-3.1 cm/m2 LVIDs: 2.66 2.0-3.6 cm LVPWd: 1.30 0.7-1.1 cm LA Diam: 3.90 2.7-3.8/3.0-4.0 cm LAIDs Index: 2.11 1.5-2.3 cm/m2 LV Mass: 265.36 67-162/88-224 g LV Mass Index: 143.44 43-95/49-115 g/m2 LVOT Diam: 2.00 3.0+(-)1.3 cm 2D Systolic Function EF 4C: 59.70 >55% EF 2C: 57.30 >55% EF BiP: 59.60 >55% LVOT LVOT Pk Andrew: 0.97 LVOT Mn Andrew: 0.63 LVOT VTI: 0.20 LVOT Pk Grad: 4.00 LVOT Mn Grad: 2.00 LVOT Diam: 2.00 LVOT Area: 3.14 Updated in Other Vendor System with Status of Final Devin Brady MD electronically signed on 12/26/2023 10:20:44 AM with status of Final
== END ==
LOC: HO.CARD 08:41
PROVIDERS: PCP Internal Medicine; Visit Provider Internal Medicine Medical Oncology
DX: C50.919 Malignant neoplasm of unspecified site of unspecified female breast (principal)
CPT/HCPCS: 93308; 93356

== ENCOUNTER → 2023-12-26 08:44 | Outpatient (BNV) | payer OTHER, SELFPAY | PROVIDERS: PCP Internal Medicine; Visit Provider Internal Medicine | DX: Z92.21 Personal history of antineoplastic chemotherapy (principal) | CPT/HCPCS: 93308; 93356 ==

== ENCOUNTER 2024-04-14 15:56 | Outpatient (AMB) | payer OTHER, SELFPAY ==
[2024-04-14 15:59] VITALS: BP 132/88; PULSE 90; O2SAT 97; BMI 31.1
--- NOTE | 2024-04-14 15:59 | A.OFFPC_ITS ---
Vital Signs 04/14/24 15:59 Height 5 ft 5 in Weight 187 lb BMI 31.1 BP 132/88 Blood Pressure Location Lt brachial Position Sitting Pulse 90 Pulse Source Pulse Oximeter Pulse Oximetry (%) 97 Oxygen Delivery Method Room Air Intake Visit Reasons: 3mth f/u - see comments Allergies seafood Allergy (Mild, Verified 04/14/24 16:02) Swelling ephedrine [From Primatene] Adverse Reaction (Severe, Verified 04/14/24 16:02) Shortness of Breath/Asthma Attack diphenhydramine [From Benadryl] Adverse Reaction (Intermediate, Verified 04/14/24 16:02) Shortness of Breath shellfish derived Adverse Reaction (Mild, Verified 04/14/24 16:02) Muscle Pain Tobacco use date assessed: 04/14/24 Dental Screening Dental Screen Date: 04/14/24 Did you have a dental visit in the last 12 months?: No Did you have a dental problem in the last 6 months where you did not have access to dental care?: No Was dental information given to patient?: Patient declined HPI 3mth f/u - see comments HPI Details The patient is a 68-year-old female presenting with a follow-up on her cancer treatment and associated conditions. She reports having completed 14 cycles of chemotherapy, with the last treatment concluding on the 11th of the current month. 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 The patient has a history of cancer that necessitated surgery, revealing three cancerous nodes; she also underwent radiation therapy. She experiences shortness of breath and mild anemia, with the latest hemoglobin level at 11.7 g/dL. Her blood potassium levels have fluctuated but remain low, necessitating ongoing supplementation. Recently, she has identified spots on her skin that present similarly to a previous fungal infection. She has a history of using triamcinolone cream but acknowledges it may exacerbate the condition. The patient is also managing her symptoms related to radiation-induced awan with CeraVe healing lotion. [facility] Medical History Knee pain, bilateral Osteoarthritis of left knee Anxiety Essential tremor Acute bronchitis Anserine bursitis Obesity (BMI 30-39.9) Osteopenia Gallbladder polyp Overweight (BMI 25.0-29.9) Fatty liver Lumbar degenerative disc disease Vitamin D deficiency Hypercholesterolemia Lactose intolerance Allergic rhinitis Asthma Surgical History Hx of colonoscopy History of hysterectomy, supracervical Family History Father Diabetes Mother No problems noted. 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 How often do you have a drink containing alcohol?: Monthly or less 2. How many drinks containing alcohol do you have on a typical day when you are drinking?: 1 or 2 3. How often do you have six or more drinks on one occasion?: Never Total Score: 1 CIRO-7 AMB Questionnaire CIRO-7 Date CIRO - 7 assessed: 06/15/23 Source: Developed by Drs. Barak Hartmann, Lubna Yoder, Garth Jose and colleagues, with an educational marisa from [employer]. Physical exam (Primary Care) Vital Signs: Last Vital Signs Pulse 90 04/14/24 15:59 BP 132/88 04/14/24 15:59 Pulse Ox 97 04/14/24 15:59 Oxygen Delivery Method Room Air 04/14/24 15:59 BMI result Body Mass Index 31.1 Tobacco/Smoking Status: Tobacco use Status Tobacco use date assessed 04/14/24 04/14/24 16:03 Patient Tobacco Use Status Never used Tobacco 04/14/24 16:03 Tobacco use type Cigarette 04/14/24 16:03 e-Cigarette/Vaping Use Never Used 04/14/24 16:03 Thrive Assessment: Date of Thrive Assessment Date Thrive assessed 06/15/23 04/14/24 16:03 Const General: alert; No acute distress Eyes Conjunctivae: conjunctivae normal Resp Auscultation: clear to auscultation bilaterally Cardio Rate: regular rate Rhythm: regular rhythm GI Inspection: Yes normal to inspection Extrem Other: Maculopapular rash on right medial foot denies pruritus. Coding Level of Care Code Est Pt Level 4 (33941) Diagnoses Breast cancer C50.919 Tubular adenoma of colon D12.6 Hypercholesterolemia E78.00 Mild intermittent asthma without complication J45.20 Asthma complication type: uncomplicated Asthma persistence: intermittent Asthma severity: mild Tinea pedis B35.3 Assessment & Plan Assessment & Plan (1) Breast cancer: Comment: September 2022Invasive ductal carcinoma, grade 3, with lobular features. Code(s): C50.919 - Malignant neoplasm of unspecified site of unspecified female breast Category: Surgical (2) Tubular adenoma of colon: Comment: 2018 tubular adenoma Code(s): D12.6 - Benign neoplasm of colon, unspecified Category: Medical (3) Hypercholesterolemia: Code(s): E78.00 - Pure hypercholesterolemia, unspecified Category: Medical (4) Asthma: Code(s): J45.909 - Unspecified asthma, uncomplicated Category: Medical Qualifiers: Asthma complication type: uncomplicated Asthma persistence: intermittent Asthma severity: mild Qualified Code(s): J45.20 - Mild intermittent asthma, uncomplicated (5) Tinea pedis: Code(s): B35.3 - Tinea pedis Category: Medical Plan - Continue current cancer treatment regimen with close monitoring of response and side effects. - Monitor anemia and encourage a diet rich in iron and plant-based proteins; continue to check hemoglobin levels regularly. - Continue potassium supplementation and monitor serum levels to adjust dosage as necessary. - Prescribe appropriate antifungal cream for suspected fungal infection on the skin. - Avoid use of triamcinolone cream on spots to prevent immune suppression. - Reinforce adherence to vaccination schedule, although patient declined flu and pneumonia vaccines; discuss importance of vaccinations in future visits. - Address shortness of breath; advise to monitor symptoms and consider beginning inhaler use if required. - Encourage appropriate hydration to address concerns about constipation and ensure regular bowel movements. - Continue follow-up with hematology/oncology for cancer surveillance and to discuss results of any necessary tests in the future. - Recommend monitoring weight fluctuations and maintain a balance between caloric intake and physical activity, considering the patient's current energy levels. Medications: New clotrimazole 1% 1 appl topical BID 45 grams 0RF 4 weeks B35.3 - Tinea pedis Refilled triamcinolone acetonide 0.5% 1 appl topical BID 30 grams 0RF L23.9 - Allergic contact dermatitis, unspecified cause
== END 2024-04-14 16:36 | disposition home or self-care (01) ==
PROVIDERS: PCP Internal Medicine; Visit Provider Internal Medicine
DX: C50.919 Malignant neoplasm of unspecified site of unspecified female breast (principal); D12.6 Benign neoplasm of colon, unspecified; E78.00 Pure hypercholesterolemia, unspecified; J45.20 Mild intermittent asthma, uncomplicated; B35.3 Tinea pedis

== ENCOUNTER → 2024-04-14 15:56 | Outpatient (BNVA) | payer OTHER, SELFPAY | PROVIDERS: PCP Internal Medicine; Visit Provider Internal Medicine | DX: C50.919 Malignant neoplasm of unspecified site of unspecified female breast (principal); D12.6 Benign neoplasm of colon, unspecified; E78.00 Pure hypercholesterolemia, unspecified; J45.20 Mild intermittent asthma, uncomplicated; B35.3 Tinea pedis | CPT/HCPCS: 99212 ==

== ENCOUNTER 2024-04-25 12:13 | Outpatient (AMB) | payer OTHER, SELFPAY ==
[2024-04-25 13:12] VITALS: BP 130/80; PULSE 89; TEMP 37.6; O2SAT 97
--- NOTE | 2024-04-25 13:12 | MHC.OFFWIV ---
Intake Vital Signs 04/25/24 13:12 Weight 188 lb BP 130/80 Blood Pressure Location Rt brachial Position Sitting Pulse 89 Pulse Source Pulse Oximeter Temp 99.6 F Temp Source Oral Pulse Oximetry (%) 97 Oxygen Delivery Method Room Air Intake Visit Reasons: EP Rash upper ankle/spreading Intake Note: Patient here for rash on bilat legs and chest that started last night. Patient Tobacco Use Status: Never used Tobacco Allergies seafood Allergy (Mild, Verified 04/25/24 13:20) Swelling ephedrine [From Primatene] Adverse Reaction (Severe, Verified 04/25/24 13:20) Shortness of Breath/Asthma Attack diphenhydramine [From Benadryl] Adverse Reaction (Intermediate, Verified 04/25/24 13:20) Shortness of Breath shellfish derived Adverse Reaction (Mild, Verified 04/25/24 13:20) Muscle Pain Do you need a note to return to daycare/school/sports/work: No HPI HPI Comments History of Present Illness Details History of Present Illness - The patient is a 68-year-old female presenting with leg pruritus and rash x 1 day. - Completed radiation therapy for the left breast 04/09, symptoms began two weeks post-treatment cessation. - Regular use of clobetasol for previous conditions, but not applied to current rash manifestation. - Recent application of CBD ointment and Bivinam last evening before bed potentially linked to exacerbation of current leg rash. - Reports additional itchiness on limbs - The patient is engaged in prolonged chemotherapy and radiation and reports experiencing multiple adverse effects. Physical Exam General: Cooperative, healthy appearing, comfortable, no acute distress and well developed Orientation: Patient oriented x3 Limitations: No limitations Head: Normal to inspection Ears: Hearing grossly normal bilaterally Nose: Normal external nose present Face and sinus: Normal facial exam Eyes: Appearance normal, both eyes and all related structures Neck: Normal visual inspection and Yes full ROM Respiratory: Normal respiratory effort and able to speak in complete sentences. Skin: Rash noted on legs -see below pic Neuro: Patient oriented x3 Extremities: Normal to inspection [facility] Medical History Knee pain, bilateral Osteoarthritis of left knee Anxiety Essential tremor Acute bronchitis Anserine bursitis Obesity (BMI 30-39.9) Osteopenia Gallbladder polyp Overweight (BMI 25.0-29.9) Fatty liver Lumbar degenerative disc disease Vitamin D deficiency Hypercholesterolemia Lactose intolerance Allergic rhinitis Asthma Surgical History Hx of colonoscopy History of hysterectomy, supracervical Family History Father Diabetes Mother No problems noted. 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 Sexual orientation: Straight/Heterosexual Gender identity: Female Cognitive needs: No Hearing needs: No Vision needs: Yes Female Reproductive History Menstrual Age of Menarche: 15 Review of Systems Const All systems reviewed & are unremarkable except as noted in HPI and below Physical Exam Vital Signs: Last Vital Signs Temp 99.6 F 04/25/24 13:12 Pulse 89 04/25/24 13:12 BP 130/80 04/25/24 13:12 Pulse Ox 97 04/25/24 13:12 Oxygen Delivery Method Room Air 04/25/24 13:12 Assessment & Plan Assessment & Plan (1) Allergic contact dermatitis: Code(s): L23.9 - Allergic contact dermatitis, unspecified cause Qualifiers: Contact dermatitis trigger: unspecified trigger Qualified Code(s): L23.9 - Allergic contact dermatitis, unspecified cause Plan: Plan The patient is presenting with pruritus and a rash possibly related to recent radiation treatments or topical medications she used last evening. Application of steroid creams, such as clobetasol and triamcinolone which she has at home from previous prescriptions, was advised for symptom control along with oral antihistamines like Benadryl for its antipruritic effect. Usage instructions were clarified, particularly concerning steroid potency and antihistamine sedation effects. Current side effects from her prior radiation treatment are considered as factors in her presentation. The patient's condition will be monitored, with adjustments to the care plan to be made based on ongoing evaluation of her response and symptoms. Patient was informed and verbally consented to the use of an ambient scribe for clinic note documentation during this visit. Coding Level of Care Code Est Pt Level 3 (16639) Diagnoses Allergic contact dermatitis, unspecified trigger L23.9 Contact dermatitis trigger: unspecified trigger
== END 2024-04-25 14:08 | disposition home or self-care (01) ==
PROVIDERS: PCP Internal Medicine; Visit Provider Physician Assistant
DX: L23.9 Allergic contact dermatitis, unspecified cause (principal)

== ENCOUNTER → 2024-04-25 12:13 | Outpatient (BNVA) | payer OTHER, SELFPAY | PROVIDERS: PCP Internal Medicine; Visit Provider Physician Assistant | DX: L23.9 Allergic contact dermatitis, unspecified cause (principal) | CPT/HCPCS: 99212 ==

== ENCOUNTER → 2024-05-15 15:02 | Outpatient (REF) | payer OTHER, SELFPAY ==
--- NOTE | 2024-05-15 15:04 | CA_ITS ---
Transthoracic Echocardiogram Patient (Last, First, Middle): Fabiola Abbott, Gender: Female Date of : 1955 Age: 68 Procedure Date: 05/15/2024 Procedure Type: Transthoracic Echocardiogram Location: OP Height: 165.1 cm Weight: 84.82 kg BSA: 1.92 m2 Heart Rate: bpm BP: 132 / 88 mmHg Electrical Service Technician: NITO Referring MD: Dariela Lott MD Customer Security Clerk: Nate Mendoza MD Symptoms: EF Study Quality: Adequate ECG Rhythm: Sinus Conclusions: - Normal LV ejection fraction of 60-65% with impaired relaxation filling pattern Findings Left Ventricle Normal left ventricular size and systolic function. The visually estimated ejection fraction is between 60-65%. Spectral Doppler is indicative of an impaired relaxation filling pattern. E/E prime ratio is between 8 and 15 consistent with indeterminate filling pressures. Peak GLS is -16.5%, mildly reduced. Prior Study Comparison No significant change compared to prior study dated: 12/26/2023. Measurements 2D Linear Measurements IVSd: 1.06 0.6-0.9/0.6-1.0 cm LVIDd: 4.97 3.9-5.3/4.2-5.9 cm LVIDd Index: 2.59 2.4-3.2/2.2-3.1 cm/m2 LVIDs: 3.12 2.0-3.6 cm LVPWd: 0.95 0.7-1.1 cm LA Diam: 3.60 2.7-3.8/3.0-4.0 cm LAIDs Index: 1.88 1.5-2.3 cm/m2 LV Mass: 226.15 67-162/88-224 g LV Mass Index: 117.79 43-95/49-115 g/m2 LVOT Diam: 2.00 3.0+(-)1.3 cm 2D Systolic Function EF 4C: 68.00 >55% EF 2C: 59.00 >55% EF BiP: 64.10 >55% Mitral Valve MV Pk E: 0.90 MV PK A: 1.03 MV Decel Time: 161.00 E/A: 0.90 E'Lateral: 8.59 E'Medial: 6.20 E/E' Med: 14.40 E/E' Lat: 10.40 PHT: 47.00 MVA PHT: 4.68 Decel [place]: 5.56 LVOT LVOT Pk Andrew: 1.28 LVOT Mn Andrew: 0.88 LVOT VTI: 0.23 LVOT Pk Grad: 7.00 LVOT Mn Grad: 4.00 LVOT Diam: 2.00 LVOT Area: 3.14 Diastolic Function MV Pk E: 0.90 MV Pk A: 1.03 E/A: 0.90 E'Medial: 6.20 E/E' Med: 14.40 E' Laterial: 8.59 E/E' Lat: 10.40 Tricuspid Valve RA Press: 8.00 Updated in Other Vendor System with Status of Final Nate Mendoza MD electronically signed on 05/16/2024 11:32:33 AM with status of Final
== END ==
LOC: HO.CARD 15:02
PROVIDERS: PCP Internal Medicine; Visit Provider Internal Medicine Medical Oncology
DX: C50.919 Malignant neoplasm of unspecified site of unspecified female breast (principal)
CPT/HCPCS: 93308

== ENCOUNTER → 2024-05-15 15:04 | Outpatient (BNV) | payer OTHER, SELFPAY | PROVIDERS: PCP Internal Medicine; Visit Provider Internal Medicine Cardiovascular Disease | DX: I51.89 Other ill-defined heart diseases (principal); R93.1 Abnormal findings on diagnostic imaging of heart and coronary circulation | CPT/HCPCS: 93308; 93321; 93356 ==

== ENCOUNTER 2024-05-22 09:06 | Outpatient (AMB) | payer OTHER, SELFPAY ==
--- NOTE | 2024-05-22 09:11 | AM.OFFWIN_ITS ---
Intake Vital Signs 05/22/24 09:12 Weight 188 lb BP 140/100 H Blood Pressure Location Lt brachial Position Sitting Pulse 94 Pulse Source Pulse Oximeter Temp 98.9 F Temp Source Oral Pulse Oximetry (%) 94 Oxygen Delivery Method Room Air Intake Visit Reasons: EP VERY SOB, Cough Intake Note: Patient here for severe SOB and cough that has been present for almost 2 weeks. Patient Tobacco Use Status: Never used Tobacco Allergies seafood Allergy (Mild, Verified 05/22/24 09:12) Swelling ephedrine [From Primatene] Adverse Reaction (Severe, Verified 05/22/24 09:12) Shortness of Breath/Asthma Attack diphenhydramine [From Benadryl] Adverse Reaction (Intermediate, Verified 05/22/24 09:12) Shortness of Breath shellfish derived Adverse Reaction (Mild, Verified 05/22/24 09:12) Muscle Pain Do you need a note to return to daycare/school/sports/work: No HPI HPI Comments History of Present Illness Details 68 y/o female patient who presents to [facility] with c/o Cough, Chest congestion and nasal, wheezing, SOB and headaches. Pt very emotional, crying in the room. [facility] Medical History (Updated 05/22/24 @ 09:57 by Snow Pina NP) Acute respiratory disease Knee pain, bilateral Osteoarthritis of left knee Anxiety Essential tremor Acute bronchitis Anserine bursitis Obesity (BMI 30-39.9) Osteopenia Gallbladder polyp Overweight (BMI 25.0-29.9) Fatty liver Lumbar degenerative disc disease Vitamin D deficiency Hypercholesterolemia Lactose intolerance Allergic rhinitis Asthma Surgical History Hx of colonoscopy History of hysterectomy, supracervical Family History Father Diabetes Mother No problems noted. 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 Sexual orientation: Straight/Heterosexual Gender identity: Female Cognitive needs: No Hearing needs: No Vision needs: Yes Female Reproductive History Menstrual Age of Menarche: 15 Review of Systems Const All systems reviewed & are unremarkable except as noted in HPI and below Physical Exam Vital Signs: Last Vital Signs Temp 98.9 F 05/22/24 09:12 Pulse 94 05/22/24 09:12 BP 140/100 H 05/22/24 09:12 Pulse Ox 94 05/22/24 09:12 Oxygen Delivery Method Room Air 05/22/24 09:12 Const General: no acute distress, anxious, ill appearing acutely and tired appearing Nutritional Appearance: overweight Orientation/consciousness: patient oriented x3 HEENT Head: Yes normocephalic Ears: external ears normal and TM abnormal bulging, erythematous and with fluid behind the TM General nose exam: Abnormal mucous membranes and turbinates present erythematous Face and sinus: Yes sinuses nontender Mouth: moist mucous membranes Resp Effort & Inspection: normal respiratory effort, able to speak in complete sentences, no audible wheezes and Actively coughing Auscultation: clear to auscultation bilaterally, no crackles, no rales, no rhonchi and no wheezes Cardio Rate: tachycardic Heart sounds: S1 normal heart sound present and S2 normal heart sound present Neuro General: patient oriented x3 Psych Other: Very emotional, uncontrollable crying. Speech and movement: Clear speech present Affect: Anxious affect present Assessment & Plan Assessment & Plan (1) Acute respiratory disease: Code(s): J06.9 - Acute upper respiratory infection, unspecified Plan: Advised Pt to go to Emergency room. Pt very emotional, hyperventilating and tachycardic. was able to cherry picker operator Pt, and agreed to transport her to ED. Coding Level of Care Code Est Pt Level 3 (14104) Diagnoses Acute respiratory disease J06.9 Time Spent (min) 15
[2024-05-22 09:12] VITALS: BP 140/100; PULSE 94; TEMP 37.2; O2SAT 94
== END 2024-05-22 10:26 | disposition home or self-care (01) ==
PROVIDERS: PCP Internal Medicine; Visit Provider Nurse Practitioner Family
DX: J06.9 Acute upper respiratory infection, unspecified (principal)

== ENCOUNTER 2024-05-22 10:10 | Emergency (ER) | payer OTHER, SELFPAY ==
--- NOTE | ~2024-05-22 | XR_ITS ---
EXAMINATION: XR CHEST CLINICAL INFORMATION: cough COMPARISON: July 17, 2023. TECHNIQUE: 2 views of the chest were obtained. FINDINGS: Opacity/haziness in the periphery of the left hemithorax. Pulmonary reticular pattern. No gross pleural effusion. No pneumothorax. Right-sided Port-A-Cath tip ends in the SVC. Cardiomediastinal silhouette is unchanged with calcified plaque Arctic arch. Multilevel thoracic spondylosis. XR/XR chest 2V IMPRESSION: Questionable airspace disease in the periphery of the left hemithorax/lung. Recommend dedicated IV contrast enhanced CT chest. Electronically signed by: Rizwan Nicholson MD 05/22/2024 11:23 AM RICHARD
[2024-05-22 10:33] VITALS: BP 160/87; PULSE 86; RESP 20; TEMP 37.3; O2SAT 95; BMI 30.9
[2024-05-22 10:56] VITALS: BP 153/91; PULSE 86; RESP 14; TEMP 36.8; O2SAT 97
--- NOTE | 2024-05-22 10:57 | ED.GENADULT ---
HPI - General Adult General Chief complaint: General Medical Stated complaint: SOB, cough Time Seen by Provider: 05/22/24 10:47 Source: patient Mode of arrival: ambulatory Limitations: no limitations History of Present Illness HPI narrative: This is a 68 years old the patient presented ambulatory to the emergency department with a chief complaint of cough congestion x8 days. She has a history of breast cancer she is on chemo and radiation therapy. She denies any fever chills vomiting. Onset (ago): day(s) (8) Radiation: non-radiation Severity: moderate Pain Consistency: constant Relieving factors: none Exacerbating factors: none Associated symptoms: denies other symptoms Related Data Previous Rx's ?Medication ?Instructions ?Recorded fluticasone propionate 50 2 spray intranasal DAILY #16 grams 01/19/22 mcg/actuation nasal spray,suspension (Flonase Allergy Relief) loperamide 2 mg capsule (Imodium 2 mg PO Q6H PRN Diarrhea #50 caps 11/17/22 A-D) naproxen 500 mg tablet 500 mg PO Q12H PRN pain #60 tabs 04/30/23 potassium chloride 20 mEq 20 meq PO DAILY #30 tabs 07/04/23 tablet,extended release hydroxyzine HCl 25 mg tablet 25 mg PO TID #60 tabs 11/28/23 lidocaine 4 % topical cream 1 appl topical BID #15 grams 12/05/23 hydrocodone 5 mg-acetaminophen 325 1 tab PO Q4-6H PRN pain #30 tabs 12/06/23 mg tablet lorazepam 0.5 mg tablet 0.5 mg PO BID PRN anxiety 15 days 12/25/23 #30 tabs ondansetron 8 mg disintegrating 8 mg PO Q8H #50 tabs 12/28/23 tablet letrozole 2.5 mg tablet 2.5 mg PO DAILY #30 tabs 12/29/23 gabapentin 300 mg capsule 300 mg PO BEDTIME #90 caps 01/28/24 montelukast 10 mg tablet 10 mg PO BEDTIME #30 tabs 03/26/24 clotrimazole 1 % topical cream 1 appl topical BID 4 weeks #45 04/14/24 grams triamcinolone acetonide 0.5 % 1 appl topical BID #30 grams 04/14/24 topical cream albuterol sulfate 2.5 mg/3 mL 2.5 mg (3 mL) inhalation Q4-6H PRN 01/24/25 (0.083 %) solution for nebulization shortness of breath or wheezing #180 mL levalbuterol tartrate 45 2 puff inhalation Q4-6H #15 grams 05/16/24 mcg/actuation aerosol inhaler (Xopenex HFA) albuterol sulfate 90 mcg/actuation 1 inh inhalation QID PRN shortness 05/22/24 aerosol inhaler of breath or wheezing #8.5 grams amoxicillin 875 mg-potassium 1 tab PO BID #14 tabs 05/22/24 clavulanate 125 mg tablet potassium chloride 20 mEq 20 meq PO DAILY #7 tabs 05/22/24 tablet,extended release Allergies Allergy/AdvReac Type Severity Reaction Status Date / Time seafood Allergy Mild Swelling Verified 05/22/24 10:34 ephedrine [From Primatene] AdvReac Severe Shortness Verified 05/22/24 10:34 of Breath/Asthma Attack diphenhydramine AdvReac Intermediate Shortness Verified 05/22/24 10:34 [From Benadryl] of Breath shellfish derived AdvReac Mild Muscle Pain Verified 05/22/24 10:34 Review of Systems Constitutional: Constitutional: Reports no additional constitutional complaints ENT: Reports system reviewed and no additional complaints, except as documented Cardiovascular: Cardiovascular: Reports no additional cardiovascular complaints and Reports dyspnea Respiratory: Respiratory: Reports cough and Reports dyspnea PMFSH Past Medical History Attestation statement: The following information was validated with the patient. Medical History Acute respiratory disease Knee pain, bilateral Osteoarthritis of left knee Anxiety Essential tremor Acute bronchitis Anserine bursitis Obesity (BMI 30-39.9) Osteopenia Gallbladder polyp Overweight (BMI 25.0-29.9) Fatty liver Lumbar degenerative disc disease Vitamin D deficiency Hypercholesterolemia Lactose intolerance Allergic rhinitis Asthma Surgical History Hx of colonoscopy History of hysterectomy, supracervical Family History Family History Father Diabetes Mother No problems noted. Brother Myocardial infarction Hypertension Sister Bursitis Lewy body dementia Parkinson disease Sister Diabetes Brother Asthma Social History Social History Household Members: Spouse Household Members Other:: 1 Housing: House Alcohol intake: current Alcohol intake frequency: holidays/special occasions only Comment: sips Patient Tobacco Use Status: Never used Tobacco Tobacco use type: Cigarette Smoked in Last 30 Days: No e-Cigarette/Vaping Use: Never Used Second Hand Smoke Exposure: No Use of substances other than those prescribed or required for medical reasons: No Advance Directives: No Advance Directives Information Provided: Yes service: No Current occupational status: employed 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 Sexual orientation: Straight/Heterosexual Gender identity: Female Cognitive needs: No Hearing needs: No Vision needs: Yes Physical Exam ED Vital Signs: Vital Signs - 24 hr 05/22/24 10:33 05/22/24 10:56 05/22/24 13:41 Temperature 99.1 F 98.3 F Pulse Rate 86 86 88 Respiratory Rate 20 14 20 Blood Pressure 160/87 H 153/91 H Pulse Oximetry 95 97 Oxygen Delivery Method Room Air Room Air 05/22/24 14:33 Temperature 98.3 F Pulse Rate 102 H Respiratory Rate 20 Blood Pressure 147/77 H Pulse Oximetry 99 Oxygen Delivery Method Room Air BMI result Body Mass Index 30.9 Not toxic appearing Const General: cooperative Nutritional Appearance: well nourished Orientation/consciousness: patient oriented x3 HENMT Head: Yes normal to inspection Ears: hearing grossly normal bilaterally General nose exam: Normal external nose present Face and sinus: Yes normal facial exam Mouth: Normal oral and palatal mucosa present Neck Neck: Yes normal visual inspection and Yes full ROM Chest Chest palpation & inspection: normal inspection of the chest Resp Effort & Inspection: normal respiratory effort Auscultation: rhonchi Cardio Jugular venous distension: no JVD Rate: regular rate GI Inspection: Yes normal to inspection Palpation (GI): Soft to palpation, not firm and nontender Skin General skin exam: no rashes or lesions noted Neuro General: patient oriented x3 Extrem General: Yes normal to inspection, Yes full ROM and Yes capillary refill normal Course Reevaluation(s) Reevaluation #1: Repeat potassium 2.9 from 2.8 trending up, we will discharge home on p.o. potassium and antibiotic of the chest x-ray showed possible infiltrate Time: 16:05 Medications Administered Discontinued Medications Generic Name Dose Route Start Last Admin Trade Name Freq PRN Reason Stop Dose Admin Ceftriaxone Sodium 1 gm 05/22/24 13:23 05/22/24 14:33 Ceftriaxone Sodium 1 Gm Vial IVPUSH 05/22/24 13:24 1 gm ONCE ONE Administration Albuterol Sulfate 2.5 mg/ 0 mg 05/22/24 13:38 05/22/24 13:40 Albuterol/Ipratropium 3 ml INHALE 05/22/24 13:39 1 dose ONCE ONE Administration Potassium Chloride 40 meq 05/22/24 12:02 05/22/24 12:31 Potassium Chloride Er 20 Meq Tab.Er.Prt PO 05/22/24 12:03 40 meq ONCE ONE Administration Potassium Chloride 40 meq 05/22/24 13:06 05/22/24 13:22 Potassium Chloride Er 20 Meq Tab.Er.Prt PO 05/22/24 13:07 40 meq ONCE ONE Administration Medical Decision Making Medical Decision Making [facility] Narrative: Patient presented to the ED with cough congestion, we will obtain labs and imaging 16:10 clinical picture consistent with possible pneumonia, she is oxygenating well at 99% on room air, respiration rate is 20 she has no fever she can be treated as outpatient, we gave her 1 dose of ceftriaxone we will send her home on Augmentin. Potassium is trending up we will discharge home p.o. potassium she will follow-up with the primary care physician. and patient are very comfortable with the plan of care Differential Diagnosis Differential Diagnoses: The differential diagnosis associated with the presentation includes Bronchitis/pneumonia Admission/Observation Consideration of admission/observation: Escalation of care including admission/observation considered Lab Data [facility] Lab Attestation statement: I reviewed the patient's lab results. 05/22/24 11:28 05/22/24 14:34 Labs: Lab Results 05/22/24 05/22/24 Range/Units 11:28 14:34 WBC 4.6 L (4.8-10.8) X10*3/uL RBC 3.84 L (4.20-5.50) X10*6/uL Hgb 10.4 L (12.0-16.0) g/dl Hct 31.2 L (37.0-47.0) % MCV 81.3 (80.0-98.0) fL MCH 27.1 (27.0-33.0) pg MCHC 33.3 (31.0-35.0) g/dl RDW 17.2 H (11.0-16.0) % Plt Count 116 L D (160-400) X10*3/uL MPV 9.2 L (9.4-12.3) fL Immature Gran % (Auto) 0.2 (0.0-0.4) % Neut % (Auto) 49.3 (45-73) % Lymph % (Auto) 28.1 (20-40) % Nye % (Auto) 20.0 H (2-11) % Eos % (Auto) 2.0 (0-4) % Baso % (Auto) 0.4 (0-2) % Lymph # (Auto) 1.3 (1.2-4.9) X10*3/uL Nye # (Auto) 0.9 (0.1-1.2) X10*3/uL Eos # (Auto) 0.1 (0.0-0.4) X10*3/uL Baso # (Auto) 0.0 (0.0-0.2) X10*3/uL Abs Immat Gran (auto) 0.01 (0.00-0.03) X10*3/uL Absolute Neuts (auto) 2.3 (2.0-8.3) x10*3/uL Absolute Nucleated RBC 0.000 (0.0-0.012) X10*3/uL Nucleated RBC % (auto) 0.0 (0.0-0.2) /100WBC Sodium 140 140 (135-145) mmol/L Potassium 2.8 L* 2.9 L* (3.3-5.1) mmol/L Chloride 106 105 (96-108) mmol/L Carbon Dioxide 25 22 (22-29) mmol/L Anion Gap 12 16 (12-20) BUN 11 12 (9-16) mg/dL Creatinine 0.73 0.76 (0.5-1.4) mg/dL Estim Creat Clear Calc 81.3 78.0 Estimated GFR > 60 > 60 Random Glucose 68 114 (60-115) mg/dL Calcium 9.2 9.4 (8.4-10.2) mg/dL Influenza Type A (PCR) NEGATIVE (Negative) Influenza Type B (PCR) NEGATIVE (Negative) RSV RNA Qual (PCR) NEGATIVE (Negative) SARS-CoV-2 RNA (RT-PCR) NEGATIVE (Negative) Independent Interpretation I performed an independent interpretation of an: Plain X-Ray Radiology Impression Discussion of test interpretation with radiology: I have reviewed the radiologist's reading. Independent Historian Clinical information obtained from an independent historian. History obtained from or confirmed by: Spouse Chronic Conditions Patient?s care impacted by: Cancer Discharge Plan Discharge Clinical Impression: Hypokalemia Pneumonia Qualifiers: Pneumonia type: due to unspecified organism Laterality: left Lung location: lower lobe of lung Qualified Code(s): J18.9 - Pneumonia, unspecified organism Patient Disposition: Home, Self-Care Instructions: Hypokalemia (ED), Pneumonia (ED) Additional Instructions: Follow-up with your primary care physician return if worse we sent a prescription for antibiotic to your pharmacy, also we sent a prescription for potassium Prescriptions: New potassium chloride 20 mEq tablet extended release 20 meq PO DAILY Qty: 7 0RF amoxicillin-pot clavulanate 875-125 mg tablet 1 tab PO BID Qty: 14 0RF albuterol sulfate 90 mcg/actuation HFA aerosol inhaler 1 inh inhalation QID PRN (Reason: shortness of breath or wheezing) Qty: 8.5 0RF No Action naproxen 500 mg tablet 500 mg PO Q12H PRN (Reason: pain) Qty: 60 3RF potassium chloride 20 mEq Tablet Extended Release 20 meq PO DAILY Qty: 30 2RF hydroxyzine HCl 25 mg Tablet 25 mg PO TID Qty: 60 0RF gabapentin 300 mg capsule 300 mg PO BEDTIME Qty: 90 1RF montelukast 10 mg tablet 10 mg PO BEDTIME Qty: 30 2RF levalbuterol tartrate [Xopenex HFA] 45 mcg/actuation HFA aerosol inhaler 2 puff inhalation Q4-6H Qty: 15 0RF albuterol sulfate 2.5 mg /3 mL (0.083 %) solution for nebulization 2.5 mg inhalation Q4-6H PRN (Reason: shortness of breath or wheezing) Qty: 180 0RF loperamide [Imodium A-D] 2 mg Capsule 2 mg PO Q6H PRN (Reason: Diarrhea) Qty: 50 3RF ondansetron 8 mg Tablet,Disintegrating 8 mg PO Q8H Qty: 50 3RF letrozole 2.5 mg Tablet 2.5 mg PO DAILY Qty: 30 4RF hydrocodone-acetaminophen 5-325 mg tablet 1 tab PO Q4-6H PRN (Reason: pain) Qty: 30 0RF Rx Instructions: Partial Fill upon patient request. albuterol sulfate 2.5 mg /3 mL (0.083 %) solution for nebulization 2.5 mg inhalation ONCE Qty: 3 0RF fluticasone propionate [Flonase Allergy Relief] 50 mcg/actuation spray,suspension 2 spray intranasal DAILY Qty: 16 0RF Rx Instructions: administer into each nostril lorazepam 0.5 mg tablet 0.5 mg PO BID PRN (Reason: anxiety) 15 Days Qty: 30 0RF triamcinolone acetonide 0.5 % cream 1 appl topical BID Qty: 30 0RF clotrimazole 1 % cream 1 appl topical BID 28 Days Qty: 45 0RF lidocaine 4 % cream 1 appl topical BID Qty: 15 0RF Rx Instructions: Apply to areola on affected side 1 hour prior to injection. Referrals: Antione,Luna Garcia MD [Primary Care Provider] - 3 days Print Language: Taiwanese
--- NOTE | 2024-05-22 11:31 | PC.NURSE ---
Port accessed via sterile technique on right side of chest
[2024-05-22 11:36] LABS: MANUAL DIFF FLAG NO
[2024-05-22 11:40] LABS: Basophils Percent Auto 0.4 % (0-2); Eosinophils Absolute Auto 0.1 X10*3/uL (0.0-0.4); Hematocrit 31.2 % (37.0-47.0); Hemoglobin 10.4 g/dl (12.0-16.0); Imm Gran Abs Auto 0.01 X10*3/uL (0.00-0.03); Imm Gran Pct Auto 0.2 % (0.0-0.4); Lymphocytes Absolute Auto 1.3 X10*3/uL (1.2-4.9); Lymphocytes Percent Auto 28.1 % (20-40); Mean Corpuscular HGB Conc 33.3 g/dl (31.0-35.0); Mean Corpuscular Hemoglobin 27.1 pg (27.0-33.0); Mean Corpuscular Volume 81.3 fL (80.0-98.0); Mean Platelet Volume 9.2 fL (9.4-12.3); Monocytes Absolute Auto 0.9 X10*3/uL (0.1-1.2); Neutrophils Absolute Auto 2.3 x10*3/uL (2.0-8.3); Neutrophils Percent Auto 49.3 % (45-73); Platelet Count 116 X10*3/uL (160-400); Red Blood Count 3.84 X10*6/uL (4.20-5.50); Red Cell Distribution Width 17.2 % (11.0-16.0); White Blood Count 4.6 X10*3/uL (4.8-10.8)
[2024-05-22 11:58] LABS: Anion Gap 12 (12-20); Blood Urea Nitrogen 11 mg/dL (9-16); Calcium 9.2 mg/dL (8.4-10.2); Carbon Dioxide 25 mmol/L (22-29); Chloride 106 mmol/L (96-108); Creatinine Clr Calc Pharmacy 81.3; Estimated Glomerular Filt Rate > 60; Glucose Random 68 mg/dL (60-115); Potassium 2.8 mmol/L (3.3-5.1); Sodium 140 mmol/L (135-145)
[2024-05-22 12:16] LABS: Influenza A PCR NEGATIVE (Negative); Influenza B PCR NEGATIVE (Negative); Resp Syncy Virus RNA Qual PCR NEGATIVE (Negative); SARS COV2 PCR INHOUSE NEGATIVE (Negative)
[2024-05-22] MEDS: Potassium Chloride ER 20 MEQ TAB.ER.PRT 40 MEQ PO ×2 (12:31→13:22)
[2024-05-22] MEDS: Albuterol Sulfate 2.5 MG, Albuterol/Iprat 2.5/0.5MG 3 ML 3 ML INHALE (13:40)
[2024-05-22 13:41] VITALS: PULSE 88; RESP 20; O2SAT 98
[2024-05-22 14:33] VITALS: BP 147/77; PULSE 102; RESP 20; TEMP 36.8; O2SAT 99
[2024-05-22] MEDS: cefTRIAXone sodium 1 GM VIAL IVPUSH (14:33)
[2024-05-22 15:05] LABS: Anion Gap 16 (12-20); Blood Urea Nitrogen 12 mg/dL (9-16); Calcium 9.4 mg/dL (8.4-10.2); Carbon Dioxide 22 mmol/L (22-29); Chloride 105 mmol/L (96-108); Estimated Glomerular Filt Rate > 60; Glucose Random 114 mg/dL (60-115); Potassium 2.9 mmol/L (3.3-5.1); Sodium 140 mmol/L (135-145)
[2024-05-22] MEDS: Heparin Sodium,Porcine Flush 500 UNIT/5 ML SYRINGE IVFLUSH (16:25)
[2024-05-22 16:30] VITALS: BP 129/78; PULSE 94; RESP 18; TEMP 36.9; O2SAT 95
== END 2024-05-22 16:45 | disposition home or self-care (01) ==
PROVIDERS: Emergency Provider Emergency Medicine; PCP Internal Medicine
DX: E87.6 Hypokalemia (principal); J18.9 Pneumonia, unspecified organism; R05.9 Cough, unspecified; Z03.818 Encounter for observation for suspected exposure to other biological agents ruled out; E78.00 Pure hypercholesterolemia, unspecified; J45.909 Unspecified asthma, uncomplicated; C50.919 Malignant neoplasm of unspecified site of unspecified female breast; Z92.21 Personal history of antineoplastic chemotherapy; Z92.3 Personal history of irradiation
CPT/HCPCS: 0241U; 36415; 71046; 80048; 85025; 87040; 94640; 96374; 99212; 99284; 99285; J0696; J1642

== ENCOUNTER → 2024-05-22 10:35 | Outpatient (BNV) | payer OTHER, SELFPAY | PROVIDERS: Emergency Provider Emergency Medicine; PCP Internal Medicine; Visit Provider Radiology Diagnostic Radiology | DX: R06.02 Shortness of breath (principal) | CPT/HCPCS: 71046 ==

== ENCOUNTER 2024-05-30 16:11 | Outpatient (AMB) | payer OTHER, SELFPAY ==
[2024-05-30 16:32] VITALS: BP 142/84; PULSE 88; TEMP 36.3; O2SAT 97; BMI 30.8
--- NOTE | 2024-05-30 16:32 | MHC.PC.OV ---
Vital Signs 05/30/24 16:32 05/30/24 16:55 Height 5 ft 5 in Weight 185 lb BMI 30.8 BP 142/84 H 136/82 Blood Pressure Location Lt brachial Lt brachial Position Sitting Sitting Pulse 88 Pulse Source Pulse Oximeter Temp 97.3 F Temp Source Temporal Artery Scan Pulse Oximetry (%) 97 Oxygen Delivery Method Room Air Intake Visit Reasons: [facility] [place] 05/[place] Pneumonia Allergies seafood Allergy (Mild, Verified 05/22/24 10:34) Swelling ephedrine [From Primatene] Adverse Reaction (Severe, Verified 05/22/24 10:34) Shortness of Breath/Asthma Attack diphenhydramine [From Benadryl] Adverse Reaction (Intermediate, Verified 05/22/24 10:34) Shortness of Breath shellfish derived Adverse Reaction (Mild, Verified 05/22/24 10:34) Muscle Pain Medication List - Last Reconciled 05/30/24 by Monie Saavedra PA-C albuterol sulfate 90 mcg/actuation 1 inh inhalation QID PRN albuterol sulfate 2.5 mg (3 mL) inhalation Q4-6H PRN amoxicillin-pot clavulanate 875-125 mg 1 tab PO BID clotrimazole 1% 1 appl topical BID 4 weeks fluticasone propionate 50 mcg/actuation (Flonase Allergy Relief) 2 sprays intranasal DAILY gabapentin 300 mg PO BEDTIME hydrocodone-acetaminophen 5-325 mg 1 tab PO Q4-6H PRN hydroxyzine HCl 25 mg PO TID letrozole 2.5 mg PO DAILY levalbuterol tartrate 45 mcg/actuation (Xopenex HFA) 2 puffs inhalation Q4-6H lidocaine 4% 1 appl topical BID loperamide (Imodium A-D) 2 mg PO Q6H PRN lorazepam 0.5 mg PO BID PRN 15 days montelukast 10 mg PO BEDTIME naproxen 500 mg PO Q12H PRN ondansetron 8 mg PO Q8H potassium chloride ER 20 mEq PO DAILY potassium chloride ER 20 mEq PO DAILY prednisone 4 tabs QD x 2 days then 3 tabs QD x 2 days then 2 tabs Qd x 2 days then 1 tab QD x 2 days PO daily; triamcinolone acetonide 0.5% 1 appl topical BID Tobacco use date assessed: 04/14/24 Dental Screening Dental Screen Date: 04/14/24 HPI [facility] [place] 05/22 Pneumonia HPI Details 68-year-old overweight female with a history of breast cancer, bilateral osteoarthritis, hypercholesterolemia, asthma, impaired glucose tolerance last seen 03/[address] Talbot coming in for hospital discharge follow up.?Patient was seen in [facility] [place] ED 05/22/2024 for cough and congestion x8 days chest x-ray revealed pneumonia discharged home on Augmentin. Potassium was low discharged home with p.o. potassium advised to follow up with PCP. Patient tells us today the ED visit was not simply with pneumonia she also had an acute exacerbation of asthma. She reach out to Dr. Talbot who gave her oral prednisone and she has 3 days left. She has completed the antibiotics. She feels her breathing has been improving and the cough is not nearly as bad. She does continue to use her albuterol at least daily at this time but previously had not been using it at all. [facility] Medical History Acute respiratory disease Knee pain, bilateral Osteoarthritis of left knee Anxiety Essential tremor Acute bronchitis Anserine bursitis Obesity (BMI 30-39.9) Osteopenia Gallbladder polyp Overweight (BMI 25.0-29.9) Fatty liver Lumbar degenerative disc disease Vitamin D deficiency Hypercholesterolemia Lactose intolerance Allergic rhinitis Asthma Surgical History Hx of colonoscopy History of hysterectomy, supracervical Family History Father Diabetes Mother No problems noted. 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 Barak Hartmann, Lubna Yoder, Garth Jose and colleagues, with an educational marisa from [employer]. Review of Systems Const Denies body aches, Denies chills, Denies fever(s), Denies headache(s) and Denies poor appetite Eyes Reports no additional complaints ENT Denies dizziness and Denies headache(s) Card Denies chest pain, Denies syncope, Denies edema, Denies irregular heart rhythm, Denies lightheadedness and Denies dyspnea Resp Reports cough, Denies hemoptysis and Denies dyspnea GI Reports no additional complaints Reports no additional complaints Musc Reports no additional complaints and Denies abnormal gait Skin/Breast Reports system reviewed and no additional complaints, except as documented Neuro Denies abnormal gait, Denies dizziness, Denies syncope and Denies headache(s) Psych Reports no additional complaints Physical exam (Primary Care) Vital Signs: Last Vital Signs Temp 97.3 F 05/30/24 16:32 BMI result Body Mass Index 30.8 Tobacco/Smoking Status: Tobacco use Status Tobacco use date assessed 04/14/24 05/22/24 09:05 Patient Tobacco Use Status Never used Tobacco 05/22/24 11:30 Tobacco use type Cigarette 05/22/24 09:05 e-Cigarette/Vaping Use Never Used 05/22/24 09:05 Thrive Assessment: Date of Thrive Assessment Date Thrive assessed 06/15/23 05/22/24 09:05 Const General: cooperative, healthy appearing, comfortable and no acute distress Orientation/consciousness: patient oriented x3 HENMT Head: Yes normocephalic Ears: hearing grossly normal bilaterally General nose exam: Normal external nose present Eyes General: appearance normal, both eyes and all related structures Conjunctivae: conjunctivae normal Neck Neck: Yes full ROM and Yes no lymphadenopathy Resp Effort & Inspection: normal respiratory effort Auscultation: clear to auscultation bilaterally, no crackles, no rales, no rhonchi and no wheezes Cardio Rate: regular rate Rhythm: regular rhythm Skin General skin exam: no rashes or lesions noted Neuro General: patient oriented x3 Gait exam (Neuro): Normal gait present Extrem General: Yes normal to inspection, Yes full ROM and No edema Psych Affect: normal affect Attitude: cooperative Insight: Good insight present (Psych) Judgement: Good judgement present (Psych) Coding Level of Care Code Est Pt Level 3 (30383) Diagnoses Impaired glucose tolerance R73.02 Obesity (BMI 30-39.9) E66.9 Pneumonia J18.9 Laterality: left Lung location: lower lobe of lung Pneumonia type: due to unspecified organism Mild intermittent asthma without complication J45.20 Asthma severity: mild Asthma persistence: intermittent Asthma complication type: uncomplicated Hypokalemia E87.6 Assessment & Plan Assessment & Plan (1) Impaired glucose tolerance: Code(s): R73.02 - Impaired glucose tolerance (oral) Category: Medical Plan: Decrease the amount of carbohydrates such as pasta, bread, rice, and potatoes and limit the amount of sweets. Although fruits are generally healthy they should be eaten in moderation as they are still high in sugar. (2) Obesity (BMI 30-39.9): Code(s): E66.9 - Obesity, unspecified Category: Medical Plan: Healthy diet and regular exercise is encouraged. (3) Pneumonia: Code(s): J18.9 - Pneumonia, unspecified organism Category: Medical Qualifiers: Laterality: left Lung location: lower lobe of lung Pneumonia type: due to unspecified organism Qualified Code(s): J18.9 - Pneumonia, unspecified organism Plan: Patient has completed the course of Augmentin and was given a course prednisone by Dr. Talbot which she will complete in the next 3 days. Lungs were clear to auscultation bilaterally and patient states her cough and fever have been improving. She has been afebrile and still has an intermittent dry cough. Advised to use aqxi-[id number]-rdchdic cough medicine as needed. Continue to monitor symptoms at this time and please reach out to the office if symptoms worsen or persist (4) Asthma: Code(s): J45.909 - Unspecified asthma, uncomplicated Category: Medical Qualifiers: Asthma severity: mild Asthma persistence: intermittent Asthma complication type: uncomplicated Qualified Code(s): J45.20 - Mild intermittent asthma, uncomplicated Plan: Asthma currently controlled on present medications. Continue on albuterol as needed. Avoid triggers such as allergies. We will reassess her asthma status after this acute exacerbation has resolved. Also ordered for spacing devices patient states it is difficult to get a good deep breath of the albuterol (5) Hypokalemia: Code(s): E87.6 - Hypokalemia Category: Medical Plan: Patient was found to be hypokalemic in the ED started on oral potassium and discharged home. Ordered for repeat potassium labs to monitor. Plan This note was constructed using voice recognition software. While every effort has been made to ensure accuracy and child and family services worker, still areas may have been included sometimes these areas may affect the content or meeting of the given symptoms. Total time spent caring for the patient today was twenty minutes. This includes time spent before the visit reviewing the chart, time spent during the visit, and time spent after the visit and documentation. Orders: Orders Potassium Today E87.6 - Hypokalemia Medications: New inhalational spacing device As directed 1 ea 0RF
[2024-05-30 16:55] VITALS: BP 136/82
== END 2024-05-30 16:52 | disposition home or self-care (01) ==
PROVIDERS: PCP Internal Medicine
DX: R73.02 Impaired glucose tolerance (oral) (principal); E66.9 Obesity, unspecified; Z68.30 Body mass index [BMI] 30.0-30.9, adult; J18.9 Pneumonia, unspecified organism; J45.20 Mild intermittent asthma, uncomplicated; E87.6 Hypokalemia

== ENCOUNTER → 2024-05-30 16:11 | Outpatient (BNVA) | payer OTHER, SELFPAY | PROVIDERS: PCP Internal Medicine | DX: R73.02 Impaired glucose tolerance (oral) (principal); E66.9 Obesity, unspecified; J18.9 Pneumonia, unspecified organism; J45.20 Mild intermittent asthma, uncomplicated; E87.6 Hypokalemia | CPT/HCPCS: 99212 ==

== ENCOUNTER 2024-07-14 11:47 | Outpatient (REF) | payer OTHER, SELFPAY | END 2024-07-14 11:48 | disposition home or self-care (01) | LOC: HO.LAB 11:47 | PROVIDERS: PCP Internal Medicine; Visit Provider Surgery | DX: L02.91 Cutaneous abscess, unspecified (principal) | CPT/HCPCS: 10060; 87070; 87077; 87186; 87205; 99212; J2004 ==

== ENCOUNTER 2024-07-14 11:47 | Outpatient (AMB) | payer OTHER, SELFPAY ==
[2024-07-14 11:55] VITALS: BP 134/74; BMI 31.3
--- NOTE | 2024-07-14 11:55 | A.OFFVIS_ITS ---
Vital Signs 07/14/24 11:55 Height 5 ft 5 in Weight 188 lb BMI 31.3 BP 134/74 Intake Visit Reasons: Abcess left axillary Allergies seafood Allergy (Mild, Verified 07/14/24 11:54) Swelling ephedrine [From Primatene] Adverse Reaction (Severe, Verified 07/14/24 11:54) Shortness of Breath/Asthma Attack diphenhydramine [From Benadryl] Adverse Reaction (Intermediate, Verified 07/14/24 11:54) Shortness of Breath shellfish derived Adverse Reaction (Mild, Verified 07/14/24 11:54) Muscle Pain Medication List - Last Reconciled 07/14/24 by Brandon De Dios MD albuterol sulfate 90 mcg/actuation 1 inh inhalation QID PRN albuterol sulfate 90 mcg/actuation (Ventolin HFA) 2 puffs inhalation Q4-6H PRN 30 days albuterol sulfate 2.5 mg (3 mL) inhalation Q4-6H PRN amoxicillin-pot clavulanate 875-125 mg 1 tab PO BID clotrimazole 1% 1 appl topical BID 4 weeks fluticasone propionate 50 mcg/actuation (Flonase Allergy Relief) 2 sprays intranasal DAILY gabapentin 300 mg PO BEDTIME hydrocodone-acetaminophen 5-325 mg 1 tab PO Q4-6H PRN hydroxyzine HCl 25 mg PO TID inhalational spacing device As directed letrozole 2.5 mg PO DAILY levalbuterol tartrate 45 mcg/actuation (Xopenex HFA) 2 puffs inhalation Q4-6H lidocaine 4% 1 appl topical BID loperamide (Imodium A-D) 2 mg PO Q6H PRN lorazepam 0.5 mg PO BID PRN 15 days montelukast 10 mg PO BEDTIME naproxen 500 mg PO Q12H PRN nitrofurantoin monohyd/m-cryst 100 mg (Macrobid) 100 mg PO Q12H ondansetron 8 mg PO Q8H phenazopyridine (Pyridium) 100 mg PO TID potassium chloride ER 20 mEq PO DAILY potassium chloride ER 20 mEq PO DAILY prednisone 4 tabs QD x 2 days then 3 tabs QD x 2 days then 2 tabs Qd x 2 days then 1 tab QD x 2 days PO daily; triamcinolone acetonide 0.5% 1 appl topical BID HPI Comments Details: Patient was referred for oncology because of the left axillary abscess. She has had this several weeks time. She presents here because of pain and discharge. Patient was well known to me status post left breast lumpectomy and sentinel lymph node biopsy. She is currently receiving chemotherapy per Oncology. She completed her radiation course. [facility] Medical History Acute respiratory disease Knee pain, bilateral Osteoarthritis of left knee Anxiety Essential tremor Acute bronchitis Anserine bursitis Obesity (BMI 30-39.9) Osteopenia Gallbladder polyp Overweight (BMI 25.0-29.9) Fatty liver Lumbar degenerative disc disease Vitamin D deficiency Hypercholesterolemia Lactose intolerance Allergic rhinitis Asthma Surgical History Hx of colonoscopy History of hysterectomy, supracervical Family History Father Diabetes Mother No problems noted. 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 Office Procedures I&D Drain Details: Risks, benefits, alternatives of incision and drainage of left 3 x 3 cm complex axillary abscess were reviewed with the patient included but not limited to bl eeding, infection, recurrence, numbness, pain, scarring the patient wished to proceed. All questions answered. After appropriate positioning, patient underwent 1% lidocaine and Betadine prepped uneventfully incision and drainage of infected abscess of the left axilla. Copious amounts of purulent material were retrieved. Cultures obtained. Wound was irrigated, secured hemostasis, packed with the iodoform packing and dressing applied. Patient tolerated procedure well. 48897-[id number] of Skin Abscess, complex All charges added?: Procedure code (CPT) selection complete Office Meds lidocaine 1 %-epinephrine 1:100,000 injection solution Performing Provider: Brandon De Dios MD Performing Location: [facility] [place] [facility] Administered by: Brandon De Dios MD on 07/14/24 12:43 Dose Route Admin Location Dispensed Lot Number Expiration Date [facility] [place] Pest Control Operator 10 mL Infiltration 10 mL Assessment & Plan Assessment & Plan (1) Abscess: Code(s): L02.91 - Cutaneous abscess, unspecified Category: Surgical Plan: Patient has been given local instructions, we will arrange with Aki Ruiz nurse packing changes, we will call in a script for antibiotics and she will see me as directed or p.r.n.. Orders: Orders AMB Incision & Drainage Today L02.91 - Cutaneous abscess, unspecified Medications: New cephalexin 500 mg PO TID 30 caps 0RF Coding Level of Care Code Est Pt Level 5 (00724) Diagnoses Abscess L02.91 CPT Codes I&D Drain - Drain 2: [id number]-Rgyqhlfw of Skin Abscess, complex ([id number])
== END 2024-07-14 12:15 | disposition home or self-care (01) ==
PROVIDERS: PCP Internal Medicine; Visit Provider Surgery
DX: L02.91 Cutaneous abscess, unspecified (principal)
CPT/HCPCS: 10060; 99214

== ENCOUNTER → 2024-07-15 14:52 | Outpatient (BNVA) | payer OTHER, SELFPAY | PROVIDERS: PCP Internal Medicine; Visit Provider Surgery | DX: L02.412 Cutaneous abscess of left axilla (principal) | CPT/HCPCS: 99211 ==

== ENCOUNTER → 2024-07-16 08:23 | Outpatient (BNVA) | payer OTHER, SELFPAY | PROVIDERS: PCP Internal Medicine; Visit Provider Surgery | DX: Z48.01 Encounter for change or removal of surgical wound dressing (principal) | CPT/HCPCS: 99211 ==

== ENCOUNTER → 2024-07-17 08:37 | Outpatient (BNVA) | payer OTHER, SELFPAY | PROVIDERS: PCP Internal Medicine; Visit Provider Surgery | DX: Z48.01 Encounter for change or removal of surgical wound dressing (principal) | CPT/HCPCS: 99211 ==

== ENCOUNTER → 2024-07-18 08:31 | Outpatient (BNVA) | payer OTHER, SELFPAY | PROVIDERS: PCP Internal Medicine; Visit Provider Surgery ==

== ENCOUNTER 2024-07-23 08:54 | Outpatient (AMB) | payer OTHER, SELFPAY ==
--- NOTE | 2024-07-23 09:04 | A.OFFVIS_ITS ---
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 Educational Fundraising Director: Educational Fundraising Director Present (Ann Marie) Accompanied by: Self / Same As Patient Allergies seafood Allergy (Mild, Verified 07/23/24 09:04) Swelling ephedrine [From Primatene] Adverse Reaction (Severe, Verified 07/23/24 09:04) Shortness of Breath/Asthma Attack diphenhydramine [From Benadryl] Adverse Reaction (Intermediate, Verified 07/23/24 09:04) Shortness of Breath shellfish derived Adverse Reaction (Mild, Verified 07/23/24 09:04) Muscle Pain Is last menstrual period known: No Post menopausal: Yes Patient : No HPI Comments Details: She is a postmenopausal woman 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 She is doing well with header boss concerns: chemo side effects-coughing leading to incontinence. Working 32-35hrs. Has a partner, family support. Not in therapy or support group. Currently not sexually active. Denies any vaginal dryness or irritation. Attempting to eat a healthy diet with calcium and vitamin D. Last pap smear; 2020, negative. Last mammogram; 2023. Colonoscopy is UTD. [facility] Medical History Acute respiratory disease Knee pain, bilateral Osteoarthritis of left knee Anxiety Essential tremor Acute bronchitis Anserine bursitis Obesity (BMI 30-39.9) Osteopenia Gallbladder polyp Overweight (BMI 25.0-29.9) Fatty liver Lumbar degenerative disc disease Vitamin D deficiency Hypercholesterolemia Lactose intolerance Allergic rhinitis Asthma Surgical History Hx of colonoscopy History of hysterectomy, supracervical Family History Father Diabetes Mother No problems noted. 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 Sexual orientation: Straight/Heterosexual Gender identity: Female Cognitive needs: No Hearing needs: No Vision needs: Yes Female Reproductive History Menstrual Age of Menarche: 15 Total pregnancies: 1 Full term: 1 Date of last pap smear: 07/14/20 (negative pap smear, negative hpv ) History of abnormal pap smear: No History of STI: No Date of Mammogram: 08/31/23 (bi rad 6) Review of Systems Const All systems reviewed & are unremarkable except as noted in HPI and below Reports as per HPI Eyes Reports no additional complaints ENT Reports no additional complaints Card Reports no additional complaints Resp Reports no additional complaints GI Reports as per HPI and Reports no additional complaints Reports as per HPI Musc Reports no additional complaints Skin/Breast Reports as per HPI Neuro Reports no additional complaints Psych Reports no additional complaints Endo Reports no additional complaints Darwin/Lymph Reports no additional complaints Aller/Immun Reports no additional complaints Physical Exam Vital Signs: Last Vital Signs BP 120/72 07/23/24 09:05 BMI result Body Mass Index 30.8 Const General: cooperative, healthy appearing, no acute distress, well developed and alert Orientation/consciousness: patient oriented x3 HEENT Head: Yes normal to inspection Eyes General: appearance normal, both eyes and all related structures Neck Neck: Yes normal visual inspection Thyroid: Thyroid normal Chest Other: left breast edema and appearance of post radiation therapy. Chest palpation & inspection: normal inspection of the chest and other (no puckering, dimpling, peau de orange, retraction, discharge, masses) Breast/axilla inspection: normal inspection of the breasts Breast/axilla palpation: normal palpation of the breasts Resp Effort & Inspection: normal respiratory effort GI Inspection: Yes normal to inspection Palpation (GI): Soft to palpation Rectal Exam - Female: deferred General: Yes bladder normal to palpation External Female Exam: normal external appearance and normal appearance of the urethra Speculum Exam - Vagina: normal appearance of the vagina, normal palpation, nor mal vaginal discharge and vagina atrophic Speculum Exam - Cervix: normal appearance of the cervix and normal palpation Bimanual exam- vagina & uterus: normal bimanual exam, normal palpation, uterine size normal, bladder normal to palpation, normal palpation and non-tender Bimanual Exam- Adnexa, other: no masses Skin General skin exam: no rashes or lesions noted Rashes: no rashes Neuro General: patient oriented x3 Cognition (Neuro): normal cognition Extrem General: Yes normal to inspection Psych Other: Tearful with the exam today discussing her chemo side effects and health concerns Attitude: cooperative Thought process: Normal thought process present Assessment & Plan Assessment & Plan (1) Encounter for well woman exam with routine gynecological exam: Code(s): Z01.419 - Encounter for gynecological examination (general) (routine) without abnormal findings Category: Medical Plan Discussed: Current recommendations for pap smears per ASCCP guidelines. Breast awareness, periodic self breast exams and yearly mammogram. Maintain a healthy lifestyle, well balanced diet including Calcium 1,200 mg and Vitamin D 600 IU daily, and routine exercise. Use Contact the office with any postmenopausal bleeding. Recommended therapy advised her to talk to her oncologist and seek out a support group and professional independent therapist. Additionally to speak with her primary care and/or oncologist about her symptoms for a possible referral to urology. Patient verbalizes understanding and agrees to the plan of care. She was given opportunity to ask questions and all questions were answered to the best of my ability. RTO in 1 year for annual header boss exam. This note is constructed using voice recognition software. While every effort has been made to ensure accuracy, economic development manager errors may have been included. Coding Level of Care Code Est Pt Prev Care >65y(35452) Diagnoses Encounter for well woman exam with routine gynecological exam Z01.419
[2024-07-23 09:05] VITALS: BP 120/72; BMI 30.8
== END 2024-07-23 09:48 | disposition home or self-care (01) ==
LOC: HO.HWS 08:54
PROVIDERS: PCP Internal Medicine; Visit Provider Advanced Practice Midwife
DX: Z01.419 Encounter for gynecological examination (general) (routine) without abnormal findings (principal)
CPT/HCPCS: 99397; 99459

== ENCOUNTER → 2024-07-23 08:54 | Outpatient (BNVA) | payer OTHER, SELFPAY | PROVIDERS: PCP Internal Medicine; Visit Provider Advanced Practice Midwife | DX: Z01.419 Encounter for gynecological examination (general) (routine) without abnormal findings (principal) | CPT/HCPCS: 99397; 99459 ==

== ENCOUNTER 2024-08-04 11:15 | Outpatient (REF) | payer OTHER, SELFPAY ==
--- NOTE | ~2024-08-04 | XR_ITS ---
EXAMINATION: XR CHEST 2 VIEWS HISTORY: Cough and congestion. Pneumonia. COMPARISON: Comparison is made with the prior examination dated 05/22/2024. FINDINGS: PA and lateral views of the chest are submitted. A right-sided port is unchanged in position. There is been progression of airspace and groundglass opacity in the left upper lung zone. The right lung is clear. There is no pleural effusion, pneumothorax, or pulmonary vascular congestion. The heart is normal in size. The bones are intact. XR/XR chest 2V IMPRESSION: Progression of airspace and groundglass opacity in the left upper lung zone. Findings may represent pneumonia, although other etiologies such as radiation pneumonitis and neoplasm are not excluded. Follow-up is recommended. Chest CT may be helpful. Electronically signed by: Barak Alexander MD 08/04/2024 03:36 PM EDT
== END 2024-08-04 11:16 | disposition home or self-care (01) ==
LOC: HO.XRAY 11:15
PROVIDERS: PCP Internal Medicine; Visit Provider Internal Medicine Medical Oncology
DX: J06.9 Acute upper respiratory infection, unspecified (principal)
CPT/HCPCS: 71046

== ENCOUNTER → 2024-08-04 11:20 | Outpatient (BNV) | payer OTHER, SELFPAY | PROVIDERS: PCP Internal Medicine; Visit Provider Radiology Diagnostic Radiology | DX: J18.9 Pneumonia, unspecified organism (principal) | CPT/HCPCS: 71046 ==

== ENCOUNTER 2024-08-06 07:42 | Outpatient (AMB) | payer OTHER, SELFPAY ==
--- NOTE | 2024-08-06 07:46 | A.OFFVIS_ITS ---
Vital Signs 08/06/24 07:50 Height 5 ft 5 in Weight 185 lb BMI 30.8 BP 129/75 Blood Pressure Location Rt brachial Position Sitting Pulse 100 Intake Visit Reasons: wound check abscess Lt axialla Intake Note: Patient here s/p abscess I&D of Lt axilla. Reports improvement with Cephalexin course. Patient c/o: no longer red or oozing. Currently on Z-pack for persistent cough. Instrument Tester Required: No Accompanied by: Self / Same As Patient Allergies seafood Allergy (Mild, Verified 08/06/24 07:50) Swelling ephedrine [From Primatene] Adverse Reaction (Severe, Verified 08/06/24 07:50) Shortness of Breath/Asthma Attack diphenhydramine [From Benadryl] Adverse Reaction (Intermediate, Verified 08/06/24 07:50) Shortness of Breath shellfish derived Adverse Reaction (Mild, Verified 08/06/24 07:50) Muscle Pain HPI Comments Details: Patient presents for follow-up patient was almost complete resolution of the left axillary abscess wound. [facility] Medical History Acute respiratory disease Knee pain, bilateral Osteoarthritis of left knee Anxiety Essential tremor Acute bronchitis Anserine bursitis Obesity (BMI 30-39.9) Osteopenia Gallbladder polyp Overweight (BMI 25.0-29.9) Fatty liver Lumbar degenerative disc disease Vitamin D deficiency Hypercholesterolemia Lactose intolerance Allergic rhinitis Asthma Surgical History Hx of colonoscopy History of hysterectomy, supracervical Family History Father Diabetes Mother No problems noted. 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 Assessment & Plan Assessment & Plan (1) Wound check, abscess: Code(s): Z51.89 - Encounter for other specified aftercare Category: Surgical Plan Because of the size of this abscess in the cyst still being present, recommendation is for excision of this on a day which is convenient for the patient. This would be an office procedure. She agrees but we will contact the office when she has time. Patient will otherwise follow-up p.r.n.. All questions answered. Coding Level of Care Code Est Pt Level 3 (81245) Diagnoses Wound check, abscess Z51.89
[2024-08-06 07:50] VITALS: BP 129/75; PULSE 100; BMI 30.8
== END 2024-08-06 08:08 | disposition home or self-care (01) ==
PROVIDERS: PCP Internal Medicine; Visit Provider Surgery
DX: Z51.89 Encounter for other specified aftercare (principal)
CPT/HCPCS: 99213

== ENCOUNTER → 2024-08-06 07:42 | Outpatient (BNVA) | payer OTHER, SELFPAY | PROVIDERS: PCP Internal Medicine; Visit Provider Surgery | DX: Z09 Encounter for follow-up examination after completed treatment for conditions other than malignant neoplasm (principal); Z87.2 Personal history of diseases of the skin and subcutaneous tissue; Z98.890 Other specified postprocedural states | CPT/HCPCS: 99212 ==

== ENCOUNTER 2024-08-13 15:45 | Outpatient (REF) | payer OTHER, SELFPAY ==
--- NOTE | ~2024-08-13 | CT_ITS ---
CLINICAL HISTORY: Persistent cough for the past 4 months,Breast can CT Chest with IV contrast: Comparison: Plain film 08/04/2024 Findings: Heart size is normal, with no pericardial effusion Aorta diameter is normal Pulmonary artery diameter is unremarkable. A port catheter tip is located in the superior vena cava Trachea and Esophagus: Unremarkable. A left side anterior mediastinal lymph node is present measuring 1.0 x 1.2 cm. Lungs: There is volume loss in the left thorax with mild shift of heart and mediastinum to the left. There is multifocal nodular thickening of anterior pleural surface and anterior alveolar ground-glass opacities of the left upper lobe. A linear scar is present in the right middle lobe. A small reticular nodular opacity is also present in the superior segment left lower lobe. Pleura: No pleural effusion Skeletal: No fractures Below the diaphragm: There is fatty infiltration of the liver. Impression: Nodular pleural thickening involving anterior left upper lobe with underlying alveolar ground-glass opacities. Differential diagnosis would include pneumonia, radiation pneumonitis, or pleural-based neoplasm and lymphangitic metastasis. Correlate with clinical history. Tissue sampling may be of benefit. This document has been electronically signed by: Kal Rucker MD on 08/14/2024 15:10:27
[2024-08-13] MEDS: iohexoL 350 MG/ML 100 ML INFUS..BTL IV (17:27)
== END 2024-08-13 15:46 | disposition home or self-care (01) ==
LOC: HO.CT 15:45
PROVIDERS: PCP Internal Medicine; Visit Provider Internal Medicine Medical Oncology
DX: R05.9 Cough, unspecified (principal)
CPT/HCPCS: 71260; Q9967

== ENCOUNTER → 2024-08-13 15:47 | Outpatient (BNV) | payer OTHER, SELFPAY | PROVIDERS: PCP Internal Medicine; Visit Provider Radiology Diagnostic Radiology | DX: J94.8 Other specified pleural conditions (principal); R91.8 Other nonspecific abnormal finding of lung field | CPT/HCPCS: 71260 ==

== ENCOUNTER → 2024-08-27 07:47 | Outpatient (REF) | payer OTHER, SELFPAY ==
--- NOTE | 2024-08-27 07:49 | CA_ITS ---
Transthoracic Echocardiogram Patient (Last, First, Middle): Scar, Fabiola, Gender: Female Date of : 1955 Age: 68 Procedure Date: 08/27/2024 Procedure Type: Transthoracic Echocardiogram Location: OP Height: 165.1 cm Weight: 83.92 kg BSA: 1.91 m2 Heart Rate: 87 bpm BP: 129 / 75 mmHg Hotel Houseman: SB Referring MD: Dariela Lott MD Symptoms: On chemotherapy. To assess ejection fraction./limited ordered Study Quality: Adequate ECG Rhythm: Sinus Conclusions: - The left ventricular systolic function is normal. The calculated ejection fraction is 64% by biplane method. Findings Left Ventricle Normal left ventricular cavity size. There is moderately increased left ventricular wall thickness. The left ventricular systolic function is normal. The calculated ejection fraction is 64% by biplane method. There is no evidence of regional wall motion abnormalities. LV peak GLS -16.4%, mildly reduced. Venous The inferior vena cava is normal in size and collapses greater than 50% with inspiration. Prior Study Comparison No significant change compared to prior study dated: 05/15/2024. Measurements 2D Linear Measurements IVSd: 1.43 0.6-0.9/0.6-1.0 cm LVIDd: 4.37 3.9-5.3/4.2-5.9 cm LVIDd Index: 2.29 2.4-3.2/2.2-3.1 cm/m2 LVIDs: 2.68 2.0-3.6 cm LVPWd: 1.20 0.7-1.1 cm LV Mass: 269.93 67-162/88-224 g LV Mass Index: 141.32 43-95/49-115 g/m2 2D Systolic Function EF 4C: 54.10 >55% EF 2C: 73.20 >55% EF BiP: 64.20 >55% Updated in Other Vendor System with Status of Final Devin Brady MD electronically signed on 08/29/2024 1:21:56 PM with status of Final
== END ==
LOC: HO.CARD 07:47
PROVIDERS: PCP Internal Medicine; Visit Provider Internal Medicine Medical Oncology
DX: C50.919 Malignant neoplasm of unspecified site of unspecified female breast (principal)
CPT/HCPCS: 93308

== ENCOUNTER → 2024-08-27 07:49 | Outpatient (BNV) | payer OTHER, SELFPAY | PROVIDERS: PCP Internal Medicine; Visit Provider Internal Medicine | DX: Z51.81 Encounter for therapeutic drug level monitoring (principal) | CPT/HCPCS: 93308; 93356 ==

== ENCOUNTER 2024-10-30 10:27 | Outpatient (REF) | payer OTHER, SELFPAY ==
--- OUTSIDE RECORDS SUMMARY | 2024-10-30 11:08 | XMS_ITS | Patient Health Record ---
Author Organization [facility] Address [address] [place] [address] Care Team Providers Care Modern Languages Professor Name Role Phone Luna Talbot MD Primary Care Provider Barak Rahman [phone] Reason For Referral No Information Medications Medication SIG (Take, Route, Frequency, Duration) Notes Start Date End Date Status Xopenex 1.25 MG/3ML 3 ml Inhalation ever y 8 hrs 12/12/2018 Active Naproxen 500 MG TAKE ONE TABLET BY M OUTH EVERY 12 HOURS WITH FOOD OR MILK NEEDED Oral prn PRN Active Flovent Diskus 100 MCG/BLIST INHALE ONE PUFF BY MOUTH TWICE A DAY Inhalation Twice a day Active Gabapentin 300 MG TAKE ONE CAPSULE BY MOUTH EVERY DAY Oral prn PRN Active Montelukast Sodium 10 MG TAKE ONE TABLET BY MOUTH EVERY DAY Oral Once a day Active Immunizations Vaccine Route Administration Date Status Comme nts Influenza Unknown 12/12/2018 Refused Social History Tobacco Use: Social History Observation Description Date Details (start date - stop date) Never Smoker NA - NA Tobacco Use/Smoking Question Answer Notes Patient is a nonsmoker Alcohol Screen Question Answer Notes Did you have a drink contain ing alcohol in the past year? Yes How often did you have a dri nk containing alcohol in the past year? Monthly or less (1 point) How many drinks did you have on a typical day when you were drinking in the past year? 1 or 2 drinks (0 point) How often did you have 6 or more drinks on one occasion in the past year? Never (0 point) Points 1 Interpretation Negative Section Notes: Nonsmoker; no sig alcohol Problems Problem Type SNOMED Code ICD Code Onset Dates Problem Status W/U Status Risk Notes Problem [id number] Encounter for screening for malignant neoplasm of colon (Z12.11) Active confirmed Problem [id number] Preprocedural examination (Z01.818) Active confirmed Plan Of Treatment Pending Test Test Name Order Date GI BIOPSY 03/07/2019 Future Test Test Name Order Date COLONOSCOPY 12/12/2018 Insurance Providers Payer Name Payer Address Payer Phone Subscriber Number Group Number Insured Name Patient Relationship to Insured Coverage Start Date Coverage End Date [facility] [address] [address] [place], [place] [id number] COLON, ELIDA Self - patient is the insured Medical (General) History Medical History History ICD Code Denies MD,DM,CVA,renal disease Asthma Neg. screening colonoscopy 02/2009 Back pain/knee pain Surgical History Surgery Date(Month/Year) Partial hysterectomy
== END 2024-10-30 10:28 | disposition home or self-care (01) ==
LOC: HO.MAMMO 10:27
PROVIDERS: PCP Internal Medicine; Referring Provider Nurse Practitioner Family; Visit Provider Internal Medicine
DX: Z13.89 Encounter for screening for other disorder (principal)

== ENCOUNTER 2024-11-03 08:45 | Outpatient (REF) | payer OTHER, SELFPAY ==
--- NOTE | ~2024-11-03 | CT_ITS ---
EXAMINATION: CT CHEST WITH IV CONTRAST INDICATION: f/u abnormal chest CT 08/14/24; breast cancer COMPARISON: Comparison is made with the prior examination dated 08/13/2024. TECHNIQUE: Helical CT scan of the chest was performed following administration of intravenous contrast. Coronal and sagittal reformatted images were generated and reviewed. This CT exam was performed with one or more of the following dose reduction techniques: automated exposure control, adjustment of the mA and/or kV according to patient size, use of iterative reconstruction technique. DLP: 166 mGy-cm CHEST: THYROID: The thyroid is unremarkable. LUNGS: There is volume loss on the left. Again seen is airspace opacity with mild bronchiectasis in the left upper lobe and mild subpleural fibrotic change. There is minimal groundglass opacity in the superior segment of the left lower lobe. Findings have improved since the prior study and likely represent postradiation change. An area of scarring in the anterior aspect of the right middle lobe appears slightly more prominent on today's 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 MEDIASTINUM: There is no mediastinal lymphadenopathy. NYA: There is no hilar lymphadenopathy. CARDIOVASCULATURE: A right-sided port is again seen in place. The heart is normal in size. There is no pericardial effusion. The thoracic aorta is normal in caliber. DEGREE OF CORONARY CALCIFICATION: none PLEURA: There is no pleural effusion. No pneumothorax. MAIN AIRWAYS: The mainstem bronchi and proximal branches are patent. AXILLA: There is no axillary lymphadenopathy. BONES AND SOFT TISSUES: There are postsurgical changes in the left breast with associated skin thickening and a central fluid collection which likely represents a seroma. UPPER ABDOMEN: The visualized portions of the liver, spleen, and adrenals are unremarkable. CT/CT chest w IV con IMPRESSION: 1. The previously seen left upper lobe airspace opacity and fibrotic change has improved slightly, suggestive of post radiation changes. 2. An area of scarring in the anterior aspect of the right upper lobe appears slightly more prominent on today's 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 Continued follow-up is recommended with chest CT in 6 months. Electronically signed by: Barak Alexander MD 11/03/2024 10:10 AM EDT
--- OUTSIDE RECORDS SUMMARY | 2024-11-03 08:54 | XMS_ITS | Patient Health Record ---
Author Organization [facility] Address [address] [place] [address] Care Team Providers Care Color Stripper Name Role Phone Luna Talbot MD Primary Care Provider Barak Rahman [phone] Reason For Referral No Information Medications Medication [...] Problem Status W/U Status Risk Notes Problem [id number] Encounter for screening for malignant neoplasm of colon (Z12.11) Active confirmed Problem [id number] Preprocedural examination (Z01.818) Active confirmed Plan Of Treatment Pending Test Test Name Order Date GI BIOPSY 03/07/2019 Future Test Test Name Order Date COLONOSCOPY 12/12/2018 Insurance Providers Payer Name Payer Address Payer Phone Subscriber Number Group Number Insured Name Patient Relationship to Insured Coverage Start Date Coverage End Date [facility] [address] [address] [place], [place] [id number] COLON, ELIDA Self - patient is the insured Medical (General) History Medical History History ICD Code Denies [place],DM,CVA,renal disease Asthma Neg. screening colonoscopy 02/2009 Back pain/knee pain Surgical History Surgery Date(Month/Year) Partial hysterectomy
[2024-11-03] MEDS: iohexoL 350 MG/ML 100 ML INFUS..BTL IV (09:42)
== END 2024-11-03 08:46 | disposition home or self-care (01) ==
LOC: HO.CT 08:45
PROVIDERS: PCP Internal Medicine; Visit Provider Nurse Practitioner Family
DX: R93.89 Abnormal findings on diagnostic imaging of other specified body structures (principal)
CPT/HCPCS: 71260; Q9967

== ENCOUNTER → 2024-11-03 08:47 | Outpatient (BNV) | payer OTHER, SELFPAY | PROVIDERS: PCP Internal Medicine; Visit Provider Radiology Diagnostic Radiology | DX: R91.8 Other nonspecific abnormal finding of lung field (principal) | CPT/HCPCS: 71260 ==

== ENCOUNTER 2024-11-05 12:16 | Outpatient (REF) | payer OTHER, SELFPAY ==
--- NOTE | ~2024-11-05 | MM_ITS ---
EXAMINATION: MM DIAGNOSTIC DIGITAL BREAST TOMOSYNTHESIS, BILATERAL CLINICAL INFORMATION: History of left breast cancer in 2022 status post lumpectomy. COMPARISON: Mammography: Comparison is made with relevant prior exams. TECHNIQUE: Digital breast mammography with tomosynthesis is performed in both the craniocaudal and mediolateral oblique views along with computer-aided detection (CAD). FINDINGS: The breasts are heterogeneously dense, which may obscure small masses (ACR BI-RADS breast composition Category c). Left breast postoperative changes are stable. There are no significant masses, abnormal calcifications, or other abnormalities. Results are provided to the patient at time of visit by the technologist. MM/MM tomosynthesis diagnostic BI IMPRESSION: Status post left lumpectomy. No mammographic evidence of malignancy. ASSESSMENT: BI-RADS BI-RADS 2 - Benign Findings RECOMMENDATION: 1 year F/U This patient's information was entered into a reminder system with a target due date for their next mammogram. Electronically signed by: Anne Marie Nova DO 11/05/2024 02:27 PM EDT
--- OUTSIDE RECORDS SUMMARY | 2024-11-05 13:18 | XMS_ITS | Patient Health Record ---
Author Organization [facility] Address [address] [place] [address] Care Team Providers Care Photograph Mounter Name Role Phone Luna Talbot MD Primary Care Provider Barak Rahman [phone] Reason For Referral No Information Medications Medication [...] Problem Status W/U Status Risk Notes Problem [id number] Encounter for screening for malignant neoplasm of colon (Z12.11) Active confirmed Problem [id number] Preprocedural examination (Z01.818) Active confirmed Plan Of Treatment Pending Test Test Name Order Date GI BIOPSY 03/07/2019 Future Test Test Name Order Date COLONOSCOPY 12/12/2018 Insurance Providers Payer Name Payer Address Payer Phone Subscriber Number Group Number Insured Name Patient Relationship to Insured Coverage Start Date Coverage End Date [facility] [address] [address] [place], [place] [id number] COLON, ELIDA Self - patient is the insured Medical (General) History Medical History History ICD Code Denies [place],DM,CVA,renal disease Asthma Neg. screening colonoscopy 02/2009 Back pain/knee pain Surgical History Surgery Date(Month/Year) Partial hysterectomy
== END 2024-11-05 12:17 | disposition home or self-care (01) ==
LOC: HO.MAMMO 12:16
PROVIDERS: PCP Internal Medicine; Visit Provider Nurse Practitioner Family
DX: Z85.3 Personal history of malignant neoplasm of breast (principal)
CPT/HCPCS: 77062; 77066

== ENCOUNTER → 2024-11-05 12:30 | Outpatient (BNV) | payer OTHER, SELFPAY | PROVIDERS: PCP Internal Medicine; Visit Provider Internal Medicine | DX: Z85.3 Personal history of malignant neoplasm of breast (principal); Z98.890 Other specified postprocedural states | CPT/HCPCS: 77062; 77066 ==

== ENCOUNTER → 2024-12-05 11:26 | Outpatient (BNV) | payer OTHER, SELFPAY | PROVIDERS: Absent Provider Nurse Practitioner Family; PCP Internal Medicine; Visit Provider Radiology Diagnostic Radiology | DX: M77.31 Calcaneal spur, right foot (principal) | CPT/HCPCS: 73630 ==

== ENCOUNTER 2024-12-25 07:31 | Outpatient (AMB) | payer OTHER, SELFPAY ==
--- OUTSIDE RECORDS SUMMARY | 2024-12-25 07:34 | XMS_ITS | Clinical Summary ---
Author Organization [facility] Address [address] [place] [address] Phone Care Team Providers Care Process Equipment Operator Name Role Phone Luna Talbot MD Primary Care Provider [phone] Dariela Lott MD Unavailable [phone] Allergies Active Allergy Reactions Criticality Noted Date Comments Diphenhydramine Hcl Shortness Of Breath High 024 Ephedrine Shortness Of Breath High 01/18/2024 Shellfish Containing Products Swelling Low 2023 Medications gabapentin (NEURONTIN) 300 MG capsule Take 300 mg by mouth daily. At HS Active montelukast (SINGULAIR) 10 mg tablet Take 10 mg by mouth nightly at bedtime. Active fluticasone propionate 250 mcg/actuation DsDv Inhale 1 puff into the lungs as needed (as needed). Active letrozole (FEMARA) 2.5 mg tablet Take 2.5 mg by mouth daily. Active silver sulfADIAZINE (SILVADENE) 1 % cream Apply to affected area twice daily 85 g 2 4 Active lidocaine (XYLOCAINE) 2 % mucosal gel jelly Apply topically 3 (three) times a day. 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 Rad Onc [address] [place] [address] Estephania Armstrong MD Primary malignant neoplasm of left breast with stage 2 alexander metastasis per [place] [employer] on Cancer 7th edition (N2) (Primary Dx) from Last 3 Months Family History Medical History Relation Comments Heart attack Brother 1 Hypertension Brother 1 Diabetes Brother 2 Cancer Brother 3 Heart attack Brother 3 Diabetes Father Arthritis Mother Dementia Sister Diabetes Sister Parkinson's disease Sister Relation Status Comments Brother 1 Brother 2 Alive Brother 3 Father Mother Sister Alive Social History Tobacco Use Types Packs/Day Years Used Date Smoking Tobacco: Never Tobacco Cessation:Counseling Given: Not Answered Alcohol Use Standard Drinks/Week Comments Not Currently 0 (1 standard drink = 0.6 oz pur e alcohol) Occasional dorothy Education Answer Date Recorded Are you interested in more education? Not on debbie e 11/17/2022 Are you concerned about learning? Not on file 11/17/2022 No 11/17/2022 No 11/17/2022 Digital Access Answer Date Recorded No 11/17/2022 No 11/17/2022 Reliable internet access at home? Not on file 11/17/2022 Device with a working camera? Not on file Comments Unknown Sex and Gender Information Value Date Recorded Sex Assigned at Not on file Legal Sex Female 10:48 AM EDT Gender Identity Not on file Sexual Orientation Not on file Last Filed Vital Signs Vital Sign Reading Time Taken Comments Blood Pressure 132/91 03/27/2024 3:20 PM EST Pulse 85 03/27/2024 3:20 PM EST Temperature 36.7 C (98.1 F) 03/27/2024 3:20 PM EST Respiratory Rate 16 03/27/2024 3:20 PM EST Oxygen Saturation 95% 03/27/2024 3:2 0 PM EST Inhaled Oxygen Concentration - - Weight 84.7 kg (186 lb 11.2 oz) 03/27/2024 3:20 PM EST snow boots on Height 165.1 cm (5' 5 ) 03/27/2024 3:20 PM EST Body Mass Index 31.07 03/27/2024 3:20 PM EST Plan of Treatment Upcoming Encounters Date Type Department Care Team (Late st Contact Info) Description 10/02/2025 2:00 PM EDT Office Visit [facility] Rad Onc [address] [place] [address] Estephania Armstrong MD [address] [place] [address] [email or web address] Health Maintenance Due Date Last Done Comments Adult Td,Tdap Booster 1955 LIPID PANEL 1955 DEPRESSION SCREENING 1969 HEPATITIS C SCREENING 12/30/1975 PNEUMOCOCCAL VACCINES (50+ y ears) (1 of 2 - PCV) 1976 ZOSTER VACCINES (1 of 2) 1976 SMOKING STATUS SCREENING (On ce After 26 Yrs) 12/30/1983 MAMMOGRAM 1997 COLOGUARD 2002 COLONOSCOPY 2002 COLORECTAL CANCER SCREENING 2002 FIT TEST 2002 FOBT 2002 SIGMOIDOSCOPY 2002 VIRTUAL COLONOSCOPY 2002 OSTEOPOROSIS SCREENING INITI AL (ONE-TIME) 2022 COVID-19 VACCINE ( - 2023-2 5 season) 2023 INFLUENZA VACCINE (#1) 2024 SCREENING FOR DIABETES 03/24/2027 03/24/2024 RSV VACCINE (1 - 1-dose 75+ series) 2032 HEPATITIS A VACCINES Aged Out No long er eligible based on patient's age to complete this topic HIB VACCINES Aged Out No longer eligi ble based on patient's age to complete this topic MENINGOCOCCAL VACCINES (ACWY) Aged Out No longer eligible based on patient's age to complete this topic MENINGOCOCCAL VACCINES (B) Aged Out N o longer eligible based on patient's age to complete this topic Medical Devices Not on file Insurance [id number] NON NSPG PCP [employer]ITY CONNECTORCARE WELLS[employer] NON NSPG PCP [place] [employer] CONNECTORCARE [employer] NON NSPG PCP [place] CONNECTORCARE [employer] NON NSPG PCP S[place] CL[place] CONNECTORCARE [facility] [place] CONNECTOR[place]ARE [facility] P[facility] CONNECTORCARE Care Teams Process Equipment Operator Relationship Specialty Start Date End Date Luna Talbot MD [address] [place] [phone] PCP - General Internal Medicine 01/18/24 Dariela Lott MD [address] [place] [address] 01/18/24 Additional Source Comments The information contained in this document represents components of the legal health record. It is not the complete legal health record.[facility]
--- OUTSIDE RECORDS SUMMARY | 2024-12-25 07:35 | XMS_ITS | Patient Health Record ---
Author Organization [facility] Address [address] [place] [address] Care Team Providers Care Barge Pilot Name Role Phone Luan Talbot MD Primary Care Provider Barak Rahman [phone] Reason For Referral No Information Medications Medication [...] Problem Status W/U Status Risk Notes Problem [id number] Encounter for screening for malignant neoplasm of colon (Z12.11) Active confirmed Problem [id number] Preprocedural examination (Z01.818) Active confirmed Plan Of Treatment Pending Test Test Name Order Date GI BIOPSY 03/07/2019 Future Test Test Name Order Date COLONOSCOPY 12/12/2018 Insurance Providers Payer Name Payer Address Payer Phone Subscriber Number Group Number Insured Name Patient Relationship to Insured Coverage Start Date Coverage End Date [facility] [address] [address] [place], [place] [id number] COLON, ELIDA Self - patient is the insured Medical (General) History Medical History History ICD Code Denies [place],DM,CVA,renal disease Asthma Neg. screening colonoscopy 02/2009 Back pain/knee pain Surgical History Surgery Date(Month/Year) Partial hysterectomy
[2024-12-25 07:39] VITALS: BP 140/84; PULSE 90; RESP 16; TEMP 37.1; O2SAT 94; BMI 32.4
--- NOTE | 2024-12-25 07:39 | AM.OFFWIN_ITS ---
Intake Vital Signs 12/25/24 07:39 Height 5 ft 5 in Weight 195 lb BMI 32.4 BP 140/84 H Blood Pressure Location Rt brachial Position Sitting Respiration 16 Pulse 90 Pulse Source Pulse Oximeter Temp 98.7 F Temp Source Oral Pulse Oximetry (%) 94 Intake Visit Reasons: EP-b/l ears issues Intake Note: Pt is here today c/o bilateral ear pain Patient Tobacco Use Status: Never used Tobacco Allergies seafood Allergy (Mild, Verified 11/10/24 14:16) Swelling ephedrine (From Primatene) Adverse Reaction (Severe, Verified 11/10/24 14:16) Shortness of Breath/Asthma Attack diphenhydramine (From Benadryl) Adverse Reaction (Intermediate, Verified 11/10/24 14:16) Shortness of Breath shellfish derived Adverse Reaction (Mild, Verified 11/10/24 14:16) Muscle Pain HPI HPI Comments History of Present Illness Details History - The patient is a 68-year-old female pr esenting with ear pain. - The ear pain began two days ago, local ized to the left ear, described as a shooting pain. - No recurrent ear infections have been noted post-chemotherapy. - The patient has completed chemotherapy for breast cancer. - She denies OWENS, fever, cough, abd pain, n/v/d, CP, or SOB. - She denies dizziness. Physical Exam General: Cooperative, healthy appearing, comfortable, no acute distress and well developed Head: Normal to inspection Ears: External ears normal bilaterally. No tragus or mastoid tenderness noted. Cerumen noted in the left canal. TM's not visualized. Face and sinus: Normal facial exam. No TTP of the sinuses. Neck: Normal visual inspection. Full ROM. No lymphadenopathy noted. Respiratory: Normal respiratory effort and able to speak in complete sentences. Clear to auscultation bilaterally. No w/r/r noted. Cardiac: RRR, no m/r/g noted. Normal S1 and S2 noted. Patient was informed and verbally consented to the use of an ambient scribe for clinic note documentation during this visit. [facility] Medical History Acute respiratory disease Knee pain, bilateral Osteoarthritis of left knee Anxiety Essential tremor Acute bronchitis Anserine bursitis Obesity (BMI 30-39.9) Osteopenia Gallbladder polyp Overweight (BMI 25.0-29.9) Fatty liver Lumbar degenerative disc disease Vitamin D deficiency Hypercholesterolemia Lactose intolerance Allergic rhinitis Asthma Surgical History Hx of colonoscopy History of hysterectomy, supracervical Family History Father Diabetes Mother No problems noted. 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 Sexual orientation: Straight/Heterosexual Gender identity: Female Cognitive needs: No Hearing needs: No Vision needs: Yes Female Reproductive History Menstrual Age of Menarche: 15 Review of Systems Const All systems reviewed & are unremarkable except as noted in HPI and below Physical Exam Vital Signs: Last Vital Signs Temp 98.7 F 12/25/24 07:39 Pulse 90 12/25/24 07:39 Resp 16 12/25/24 07:39 BP 140/84 H 12/25/24 07:39 Pulse Ox 94 12/25/24 07:39 BMI result Body Mass Index 32.4 Office Procedures Cerumen Removal From which ear canal was the cerumen removed: bilateral Removal: irrigation Notes: patient tolerated procedure well, no complications and ear canal clear [id number] Irrigation/Lavage Assessment & Plan Assessment & Plan (1) Cerumen impaction: Code(s): H61.20 - Impacted cerumen, unspecified ear Qualifiers: Laterality: bilateral Qualified Code(s): H61.23 - Impacted cerumen, bilateral Plan Most likely cerumen impaction plan - will irrigate her ears in the office today - avoid q-tips - follow up with PCP Orders: Orders AMB Cerumen Removal Today H61.23 - Impacted cerumen, bilateral Coding Level of Care Code Est Pt Level 3 (20703) Diagnoses Bilateral impacted cerumen H61.23 Laterality: bilateral CPT Codes Office Procedure - CPT: 02448-Utk Irrigation/Lavage ([id number])
== END 2024-12-25 08:28 | disposition home or self-care (01) ==
PROVIDERS: PCP Internal Medicine; Visit Provider Physician Assistant Medical
DX: H92.02 Otalgia, left ear (principal); H61.23 Impacted cerumen, bilateral

== ENCOUNTER → 2024-12-25 07:31 | Outpatient (BNVA) | payer OTHER, SELFPAY | PROVIDERS: PCP Internal Medicine; Visit Provider Physician Assistant Medical | DX: H61.23 Impacted cerumen, bilateral (principal) | CPT/HCPCS: 69209; 99212 ==

== ENCOUNTER 2024-12-26 09:10 | Outpatient (RCR) | payer OTHER, SELFPAY | END 2025-01-19 08:18 | disposition home or self-care (01) | LOC: HO.PT 09:10 | PROVIDERS: PCP Internal Medicine; Visit Provider Nurse Practitioner Family | DX: M25.512 Pain in left shoulder (principal); C50.912 Malignant neoplasm of unspecified site of left female breast | CPT/HCPCS: 97110; 97140; 97162; 97530; 97535 ==

== ENCOUNTER 2025-01-09 15:21 | Outpatient (AMB) | payer OTHER, SELFPAY ==
--- OUTSIDE RECORDS SUMMARY | 2025-01-09 15:23 | XMS_ITS | Clinical Summary ---
Author Organization [facility] Address [address] [place] [id number] Phone Care Team Providers Care Upsetter Helper Name Role Phone Luna Talbot MD Primary Care Provider [phone] Dariela Lott MD Unavailable Allergies Active Allergy Reactions Criticality Noted Date [...] breast with stage 2 alexander metastasis per [place] [employer] Committee on Cancer 7th edition (N2) 01/18/2024 Cancer Staging:Clinical stage from 01/18/2024:Stage IB(cT1c, cN1, cM0, G2, ER: Positive, OH: Positive, HER2: Positive) - Unsigned Family History Medical History Relation Comments Heart [...] Description 10/02/2025 2:00 PM EDT Office Visit [facility] Rad Onc [address] [place] [id number] Estephania Armstrong MD [address] [place] [id number] [email or web address] Health Maintenance Due Date Last [...] 2002 OSTEOPOROSIS SCREENING INITI AL (ONE-TIME) 2022 INFLUENZA VACCINE (#1) 2024 COVID-19 VACCINE ( - 2023-2 5 season) 2024 SCREENING FOR DIABETES 03/24/2027 03/24/2024 RSV [...] topic Medical Devices Not on file Insurance MANUEL HU NSPG PCP [facility] NON NSPG PCP [place] [employer] NON NSPG PCP S[place] CONNE[employer]ARE [employer] NON NSPG PCP [place] [facility] NON NSPG PCP [place] [employer] [employer] [place] NON NSPG PCP [place] [employer] [facility] Care Teams Upsetter Helper Relationship Specialty Start Date End Date Luna Talbot MD [address] [place] [address] Drive [address] [place] [id number] PCP - General Internal Medicine 01/18/24 Dariela Lott MD [address] [place] [id number] 01/18/24 Additional Source Comments The information contained in this document represents components of the legal health record. It is not the complete legal health record.[facility]
[2025-01-09 15:24] VITALS: BP 160/80; PULSE 87; RESP 18; TEMP 36.3; O2SAT 95; BMI 32.6
--- NOTE | 2025-01-09 15:24 | A.OFFPC_ITS ---
Vital Signs 01/09/25 15:24 Height 5 ft 5 in Weight 196 lb 2 oz BMI 32.6 BP 160/80 H Blood Pressure Location Lt brachial Position Sitting Respiration 18 Pulse 87 Pulse Source Pulse Oximeter Temp 97.3 F Temp Source Temporal Artery Scan Pulse Oximetry (%) 95 Oxygen Delivery Method Room Air Intake Visit Reasons: annual exam Reporter Anchor Required: No Accompanied by: Self / Same As Patient Allergies seafood Allergy (Mild, Verified 01/09/25 15:24) Swelling ephedrine (From Primatene) Adverse Reaction (Severe, Verified 01/09/25 15:24) Shortness of Breath/Asthma Attack diphenhydramine (From Benadryl) Adverse Reaction (Intermediate, Verified 01/09/25 15:24) Shortness of Breath shellfish derived Adverse Reaction (Mild, Verified 01/09/25 15:24) Muscle Pain Medication List - Last Reconciled 01/09/25 by Wander Camejo MD albuterol sulfate 90 mcg/actuation (Ventolin HFA) 2 puffs inhalation Q4-6H PRN 30 days albuterol sulfate 2.5 mg (3 mL) inhalation Q4-6H PRN cholecalciferol (vitamin D3) 25 mcg PO DAILY fluticasone propionate 50 mcg/actuation (Flonase Allergy Relief) 2 sprays intranasal DAILY gabapentin 300 mg PO BEDTIME inhalational spacing device As directed letrozole 2.5 mg PO DAILY levalbuterol tartrate 45 mcg/actuation (Xopenex HFA) 2 puffs inhalation Q4-6H lidocaine 4% 1 appl topical BID lorazepam 0.5 mg PO BID PRN 15 days montelukast 10 mg PO BEDTIME naproxen 500 mg PO Q12H PRN potassium chloride ER 20 mEq PO DAILY propranolol ER (Inderal LA) 120 mg PO BEDTIME triamcinolone acetonide 0.5% 1 appl topical BID Tobacco use date assessed: 01/09/25 Fall risk assessment: No Falls in past year Last assessed Fall Risk: 01/09/25 Dental Screening Dental Screen Date: 01/09/25 Did you have a dental visit in the last 12 months?: No Did you have a dental problem in the last 6 months where you did not have access to dental care?: No Was dental information given to patient?: No HPI HPI Comments History of Present Illness Details The patient is a 69-year-old female presenting for an annual wellness visit and management of multiple chronic conditions. The patient has a history of breast cancer, for which she underwent surgery and chemotherapy, completing chemo November. Post-treatment, she reports worsening of a pre-existing tremor, which was initially mild but has become more pronounced f ollowing chemotherapy. She experiences hypoglycemia, with glucose levels fluctuating and a recent episode of low glucose reported. She has not yet seen an fishing tool technician oil well but was referred for a consultation. The patient reports osteoarthritis of the knees, managed with CBD cream and naproxen, which provides some relief. She also has plantar fasciitis, which she manages with acupuncture and relaxation techniques. She had an episode of shingles about a year ago, which she attributes to her chemotherapy treatments. She has not received the shingles vaccine but was advised to consider it to prevent recurrence. The patient has osteoporosis and curvature of the spine but is not on any medication for these conditions. She occasionally takes vitamin supplements but not consistently. She reports persistent fatigue, exacerbated by physical activity and exposure to sunlight, and experiences dizziness and weakness. A heart ultrasound is planned to rule out cardiac causes, and further evaluation of her lungs may be considered if cardiac issues are excluded. The patient has low potassium levels, which fluctuate, and she takes potassium supplements as needed. She reports swelling in her foot, more pronounced on one side, and an ultrasound of the legs is planned to rule out blood clots. Patient also reports worsening hand tremors after her chemo. [facility] Medical History (Updated 01/09/25 @ 16:16 by Wander Camejo MD) Essential tremor Acute respiratory disease Knee pain, bilateral Osteoarthritis of left knee Anxiety Acute bronchitis Anserine bursitis Obesity (BMI 30-39.9) Osteopenia Gallbladder polyp Overweight (BMI 25.0-29.9) Fatty liver Lumbar degenerative disc disease Vitamin D deficiency Hypercholesterolemia Lactose intolerance Allergic rhinitis Asthma Surgical History Hx of colonoscopy History of hysterectomy, supracervical Family History Father Diabetes Mother No problems noted. 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 1. Little interest or pleasure in doing things: nearly every day 2. Feeling down, depressed, or hopeless: nearly every day 3. Trouble falling or staying asleep, or sleeping too much: nearly every day 4. Feeling tired or having little energy: nearly every day 5. Poor appetite or overeating: not at all 6. Feeling bad about yourself - or that you are a failure or have let yourself or your family down: not at all 7. Trouble concentrating on things, such as reading the newspaper or watching television: nearly every day 8. Moving or speaking so slowly that other people could have noticed. Or the opposite - being so fidgety or restless that you have been moving around a lot more than usual: nearly every day 9. Thoughts that you would be better off or of hurting yourself in some way: not at all Total score: 18 Source: Developed by Drs. Barak Hartmann, Lubna Yoder, Garth Jose and colleagues, with an educational marisa from [employer]. Thrive Questionnaire Date Thrive assessed: 01/01/25 I am a: Patient What is your living situation today?: I have a steady place to live Within the past 12 months, did the food you bought not last and you didn't have the money to get more?: I choose not to answer this question Within the past 12 months, did you worry whether your food would run out before you got money to buy more?: I choose not to answer this question Do you have trouble paying for medicines?: No Do you have trouble getting transportation to medical appointments?: No Do you have trouble paying your heating and electricity bill?: No Do you have trouble taking care of your child, family member or friend?: I choose not to answer this question Do you have trouble with day-to-day activities such as bathing, preparing meals, shopping, managing finances, etc.?: I choose not to answer this question Are you currently unemployed and looking for a job?: No Are you interested in more education?: I choose not to answer this question Please select the resources that you would like help with: None Currently or been in a relationship where the following occur: I choose not to answer THRIVE Score: 0 AUDIT C Alcohol Use Questionnaire (AUDIT-C) 1. How often do you have a drink containing alcohol?: Monthly or less 2. How many drinks containing alcohol do you have on a typical day when you are drinking?: 1 or 2 3. How often do you have six or more drinks on one occasion?: Never Total Score: 1 CIRO-7 AMB Questionnaire CIRO-7 Date CIRO - 7 assessed: 06/15/23 Feeling nervous, anxious, or on edge: 1 = Several days Not being able to stop or control worryin = Several days Worrying too much about different things: 1 = Several days Trouble relaxin = Several days Being so restless that it is hard to sit still: 0 = Not at all Becoming easily annoyed or irritable: 0 = Not at all Feeling afraid as if something awful might happen: 0 = Not at all Total CIRO-7 score (0-4 normal; 5-9 mild; 10-14 moderate; 15-21 severe): 4 Source: Developed by Drs. Barak Hartmann, Lubna Yoder, Garth Jose and colleagues, with an educational marisa from [employer]. Review of Systems Const Details: Positives besides what was mentioned in HPI are in BOLD Constitutional: No Weight Change, No Fever, No Chills, No Night Sweats, No Fatigue, No Malaise ENT/Mouth: No Hearing Changes, No Ear Pain, No Nasal Congestion, No Sinus Pain, No Hoarseness, No sore throat, No Rhinorrhea, No Swallowing Difficulty Eyes: No Eye Pain, No Swelling, No Redness, No Foreign Body, No Discharge, No Vision Changes Cardiovascular: No Chest Pain, No SOB, No PND, No Dyspnea on Exertion, No Orthopnea, No Claudication, No Edema, No Palpitations Respiratory: No Cough, No Sputum, No Wheezing, No Smoke Exposure, No Dyspnea Gastrointestinal: No Nausea, No Vomiting, No Diarrhea, No Constipation, No Pain, No Heartburn, No Anorexia, No Dysphagia, No Hematochezia, No Melena, No Flatulence, No Jaundice Genitourinary: No Dysmenorrhea, No DUB, No Dyspareunia, No Dysuria, No Urinary Frequency, No Hematuria, No Urinary Incontinence, No Urgency, No Flank Pain, No Urinary Flow Changes, No Hesitancy Musculoskeletal: No Arthralgias, No Myalgias, No Joint Swelling, No Joint Stiffness, No Back Pain, No Neck Pain, No Injury History Skin: No Skin Lesions, No Pruritis, No Hair Changes, No Breast/Skin Changes, No Nipple Discharge Neuro: No Weakness, No Numbness, No Paresthesias, No Loss of Consciousness, No Syncope, No Dizziness, No Headache, No Coordination Changes, No Recent Falls Psych: No Anxiety/Panic, No Depression, No Insomnia, No Personality Changes, No Delusions, No Rumination, No SI/HI/AH/VH, No Social Issues, No Memory Changes, No Violence/Abuse Hx., No Eating Concerns Heme/Lymph: No Bruising, No Bleeding, No Transfusions History, No Lymphadenopathy Endocrine: No Polyuria, No Polydipsia, No Temperature Intolerance Physical exam (Primary Care) Vital Signs: Last Vital Signs Temp 97.3 F 01/09/25 15:24 Pulse 87 01/09/25 15:24 Resp 18 01/09/25 15:24 BP 160/80 H 01/09/25 15:24 Pulse Ox 95 01/09/25 15:24 Oxygen Delivery Method Room Air 01/09/25 15:24 BMI result Body Mass Index 32.6 Tobacco/Smoking Status: Tobacco use Status Tobacco use date assessed 01/09/25 01/09/25 15:30 Patient Tobacco Use Status Never used Tobacco 01/09/25 15:30 Tobacco use type Cigarette 01/09/25 15:30 e-Cigarette/Vaping Use Never Used 01/09/25 15:30 PHQ-9: PHQ-9 Score PHQ-9: Total score 18 01/09/25 15:30 Thrive Assessment: Date of Thrive Assessment Date Thrive assessed 09/11/25 09/19/25 15:30 Currently or been in a relationship where the following occur: I choose not to answer Const Other: Pertinent findings are in BOLD GENERAL APPEARANCE NAD, activity normal for age, well developed/ well nourished, no cyanosis, pallor, or diaphoresis. EYES lids/conjunctiva normal. EARS/NOSE/THROAT Mucous membranes moist, nares normal, lips/teeth normal uvula midline without oral pharyngeal erythema, exudate or swelling TMs normal bilaterally. No lymphangitis/lymphedema. HEAD/NECK normocephalic atraumatic, no facial trauma, neck is supple. RESPIRATORY respiratory effort normal, speaks in full sentences, no tripod position, no accessory muscle use. Lungs clear to auscultation without rhonchi, wheezes, rales. Crackles at bilateral lung base. CARDIAC Regular rate and rhythm, no edema. ABDOMINAL Soft, ND/NT. No evidence of fluid wave. No pulsatile masses on exam, rebound tenderness, Bazan sign or pain over Mcburney's point. MUSCLES/EXTREMITIES No abnormal range of motion, bilateral leg swelling, more pronounced on the right side. SKIN Warm, pink and dry. No rashes, dermatoses, petechiae or lesions. NEUROLOGICAL Speech is clear and appropriate. Normal level of consciousness. Gait and coordination are normal. 5/5 strength in all extremities. Bilateral hand tremor. PSYCH Normal mood and affect. Judgement/competence is appropriate Coding Level of Care Code Est Pt Level 4 (06429) Est Pt Prev < 1 yr (60435) Diagnoses Impaired glucose tolerance R73.02 Fatigue R53.83 Swelling R60.9 Cyst (solitary) of breast N60.09 Hypokalemia E87.6 Health maintenance examination Z00.00 Essential tremor G25.0 Plantar fasciitis M72.2 Osteoarthritis of knee M17.10 Osteoporosis M81.0 Shingles B02.9 Breast cancer C50.919 Time Spent (min) 40 Comment Time spent on new problems including leg swelling, fatigue, essential tremor. Assessment & Plan Assessment & Plan (1) Impaired glucose tolerance: Code(s): R73.02 - Impaired glucose tolerance (oral) Category: Medical Plan: Endocrinology referral. (2) Fatigue: Code(s): R53.83 - Other fatigue Category: Medical Plan: Echocardiogram. We will do further W-U as needed. (3) Swelling: Code(s): R60.9 - Edema, unspecified Category: Medical Plan: Bilateral LE US as more leg is more swollen than the other and the patient has Hx of cancer so she is at higher risk of DVT. (4) Cyst (solitary) of breast: Code(s): N60.09 - Solitary cyst of unspecified breast Category: Medical Plan: General surgery referral. (5) Hypokalemia: Code(s): E87.6 - Hypokalemia Category: Medical Plan: Copntinue Potassium (6) Health maintenance examination: Code(s): Z00.00 - Encounter for general adult medical examination without abnormal findings Category: Medical Plan: Dexa: Patient reports known history of Osteoporosis. Vit D started. CBC, CMP, Lipid panel, A1C, TSH w T4. Next visit. Advised on getting Shingles vaccine. Colonoscopy: 45-75. Due but patient deferred as she has a lot going on in her life at this time. We will encourage with next visit. AAA: NI Ct lung: NI Mammogram: HPV: Follows with OB-Social Sciences Research Scientist. HIV: We will discuss nexty visit as the patient has a lot going on. HBV: We will discuss nexty visit as the patient has a lot going on. HCV: We will discuss nexty visit as the patient has a lot going on. (7) Essential tremor: Code(s): G25.0 - Essential tremor Category: Medical Plan: Propranolol started. (8) Plantar fasciitis: Code(s): M72.2 - Plantar fascial fibromatosis Category: Medical Plan: The patient manages plantar fasciitis with acupuncture and relaxation techniques. (9) Osteoarthritis of knee: Code(s): M17.10 - Unilateral primary osteoarthritis, unspecified knee Category: Medical Plan: The patient manages osteoarthritis of the knees with CBD cream and naproxen, which provides some relief. (10) Osteoporosis: Code(s): M81.0 - Age-related osteoporosis without current pathological fracture Category: Medical Plan: Patient declined treatment. Vit D started. We will check Vit D level with next visit. (11) Shingles: Code(s): B02.9 - Zoster without complications Category: Medical Plan: The patient had an episode of shingles about a year ago, attributed to chemotherapy treatments. The shingles vaccine was recommended to prevent recurrence. (12) Breast cancer: Comment: September 2022Invasive ductal carcinoma, grade 3, with lobular features. Code(s): C50.919 - Malignant neoplasm of unspecified site of unspecified female breast Category: Surgical Plan: Follows with Heme Onc. We will continue to follow Oncology reccs. Plan During the visit, we discussed the patient's history of breast cancer and the completion of chemotherapy treatments. We addressed the worsening of her tremor post-treatment and considered propranolol as a treatment option. The patient was referred to endocrinology for her hypoglycemia, and we discussed the importance of managing her potassium levels with supplements. We also planned for a heart ultrasound to evaluate her fatigue and discussed the potential need for further lung evaluation. The shingles vaccine was recommended to prevent recurrence, and vitamin D supplementation was started for osteoporosis management. Orders: Orders US arterial duplex LE BI Today R60.9 - Edema, unspecified Complete Blood Count no Diff 11/24/25 Z00.00 - Encounter for general adult medical examination without abnormal findings Comprehensive Met. Panel 11/24/25 Z00.00 - Encounter for general adult medical examination without abnormal findings Hemoglobin A1c 11/24/25 Z00.00 - Encounter for general adult medical examination without abnormal findings CA Echo Limited Today R53.83 - Other fatigue Lipid Panel 11/24/25 Z00.00 - Encounter for general adult medical examination without abnormal findings Vitamin D 1,25 dihydroxy 11/24/25 Z00.00 - Encounter for general adult medical examination without abnormal findings TSH reflex Free T4 11/24/25 Z00.00 - Encounter for general adult medical examination without abnormal findings Vitamin B12 and Folate 11/24/25 Z00.00 - Encounter for general adult medical examination without abnormal findings Referrals Endocrinology Referral R73.02 - Impaired glucose tolerance (oral) General Surgery Referral N60.09 - Solitary cyst of unspecified breast Medications: New propranolol ER (Inderal LA) 120 mg PO BEDTIME 30 caps 3RF cholecalciferol (vitamin D3) 25 mcg PO DAILY 90 caps 3RF
== END 2025-01-09 16:04 | disposition home or self-care (01) ==
LOC: HO.HMCH 15:21
PROVIDERS: PCP Internal Medicine; Visit Provider Internal Medicine
DX: Z00.00 Encounter for general adult medical examination without abnormal findings (principal); R73.02 Impaired glucose tolerance (oral); R53.83 Other fatigue; C50.919 Malignant neoplasm of unspecified site of unspecified female breast; R60.9 Edema, unspecified; N60.09 Solitary cyst of unspecified breast; M72.2 Plantar fascial fibromatosis; E87.6 Hypokalemia; G25.0 Essential tremor; M17.10 Unilateral primary osteoarthritis, unspecified knee; M81.0 Age-related osteoporosis without current pathological fracture; B02.9 Zoster without complications

== ENCOUNTER → 2025-01-09 15:21 | Outpatient (BNVA) | payer OTHER, SELFPAY | PROVIDERS: PCP Internal Medicine; Visit Provider Internal Medicine | DX: Z00.01 Encounter for general adult medical examination with abnormal findings (principal); N60.09 Solitary cyst of unspecified breast; R60.9 Edema, unspecified; E87.6 Hypokalemia; R53.83 Other fatigue; R73.02 Impaired glucose tolerance (oral); G25.0 Essential tremor; M81.0 Age-related osteoporosis without current pathological fracture; M17.10 Unilateral primary osteoarthritis, unspecified knee; Z86.19 Personal history of other infectious and parasitic diseases; M72.2 Plantar fascial fibromatosis; Z71.85 Encounter for immunization safety counseling; Z85.3 Personal history of malignant neoplasm of breast; Z92.21 Personal history of antineoplastic chemotherapy | CPT/HCPCS: 99212; 99397 ==

== ENCOUNTER 2025-01-22 15:09 | Outpatient (REF) | payer OTHER, SELFPAY ==
--- NOTE | 2025-01-14 15:04 | MHC.HEMONCMA ---
I faxed over ref to [facility].
--- NOTE | ~2025-01-22 | US_ITS ---
EXAMINATION: US TRIPLEX LOWER EXTREMITY, BILATERAL CLINICAL INFORMATION: Edema, lower extremities. COMPARISON: None available. TECHNIQUE: Color-flow triplex imaging with spectral analysis and compression Doppler were performed on the bilateral lower extremities. FINDINGS: Respiratory variation, normal compression and augmented flow are demonstrated in the interrogated common femoral vein, superficial femoral vein, profunda femoral vein, popliteal vein and midcalf peroneal and posterior tibial venous segments, both lower extremities. There is no Gatica's cyst. US/US venous duplex LE BI IMPRESSION: No acute deep venous thrombosis interrogated veins of both lower extremities. Negative DVT.. Electronically signed by: Rizwan Nicholson MD 01/22/2025 03:44 PM EDT
--- OUTSIDE RECORDS SUMMARY | 2025-01-22 16:30 | XMS_ITS | Clinical Summary ---
Author Organization [facility] Address [address] [place] [address] Phone Care Team Providers Care Anvilsmith Name Role Phone Luna Talbot MD Primary Care Provider [phone] Dariela Lott MD Unavailable [phone] Allergies Active Allergy Reactions Criticality Noted Date [...] breast with stage 2 alexander metastasis per [place] Joint Committee on Cancer 7th edition (N2) 01/18/2024 Cancer Staging:Clinical stage from 01/18/2024:Stage IB(cT1c, cN1, cM0, G2, ER: Positive, [place]: Positive, HER2: Positive) - Unsigned Family History [...] Description 10/02/2025 2:00 PM EDT Office Visit [facility] Rad Onc [address] [place] [address] Estephania Armstrong MD [address] [place] [phone] [email or web address] Health Maintenance Due Date Last Done Comments [...] Insurance MANUEL HU NSPG PCP [facility] NON NSPG PCP [place] [facility] [place] NON NSPG PCP S[place] [employer] CONNECTORCARE [place] NON NSPG PCP S[place] CONNECTORCARE [facility] NON NSPG PCP [place] [facility] CONNE[facility] [place] NON NSPG PCP [place] [facility] CONNECTORCARE Care Teams Anvilsmith Relationship Specialty Start Date End Date Luna Talbot MD [address] [place] [address] Drive [address] [place] [id number] PCP - General Internal Medicine 01/18/24 Dariela Lott MD [address] [place] [address] 01/18/24 Additional Source Comments The information contained in this document represents components of the legal health record. It is not the complete legal health record.[facility]
--- OUTSIDE RECORDS SUMMARY | 2025-01-22 16:31 | XMS_ITS | Patient Health Record ---
Author Organization [facility] Address [address] [place] [address] Care Team Providers Care Vertical Contour Band Saw Operator Name Role Phone Luna Talbot MD Primary Care Provider Barak Rahman [phone] Reason For Referral No Information Medications Medication [...] Problem Status W/U Status Risk Notes Problem [id number] Encounter for screening for malignant neoplasm of colon (Z12.11) Active confirmed Problem [id number] Preprocedural examination (Z01.818) Active confirmed Plan Of Treatment Pending Test Test Name Order Date GI BIOPSY 03/07/2019 Future Test Test Name Order Date COLONOSCOPY 12/12/2018 Insurance Providers Payer Name Payer Address Payer Phone Subscriber Number Group Number Insured Name Patient Relationship to Insured Coverage Start Date Coverage End Date [facility] [address] [address] [place], [place] [id number] COLON, ELIDA Self - patient is the insured Medical (General) History Medical History History ICD Code Denies [place],DM,CVA,renal disease Asthma Neg. screening colonoscopy 02/2009 Back pain/knee pain Surgical History Surgery Date(Month/Year) Partial hysterectomy
== END 2025-01-22 15:10 | disposition home or self-care (01) ==
LOC: HO.US 15:09
PROVIDERS: PCP Internal Medicine; Visit Provider Internal Medicine
DX: R09.89 Other specified symptoms and signs involving the circulatory and respiratory systems (principal)
CPT/HCPCS: 93970

== ENCOUNTER → 2025-01-22 15:10 | Outpatient (BNV) | payer OTHER, SELFPAY | PROVIDERS: PCP Internal Medicine; Visit Provider Radiology Diagnostic Radiology | DX: R60.0 Localized edema (principal) | CPT/HCPCS: 93970 ==

== ENCOUNTER 2025-01-24 10:44 | Outpatient (AMB) | payer OTHER, SELFPAY ==
--- OUTSIDE RECORDS SUMMARY | 2025-01-24 10:46 | XMS_ITS | Patient Health Record ---
Author Organization [facility] Address [address] [place] [address] Care Team Providers Care Swimming Pool Cleaner Name Role Phone Luna Talbot MD Primary Care Provider Barak Rahman [phone] Reason For Referral No Information Medications Medication [...] Problem Status W/U Status Risk Notes Problem [id number] Encounter for screening for malignant neoplasm of colon (Z12.11) Active confirmed Problem [id number] Preprocedural examination (Z01.818) Active confirmed Plan Of Treatment Pending Test Test Name Order Date GI BIOPSY 03/07/2019 Future Test Test Name Order Date COLONOSCOPY 12/12/2018 Insurance Providers Payer Name Payer Address Payer Phone Subscriber Number Group Number Insured Name Patient Relationship to Insured Coverage Start Date Coverage End Date [facility] [address] [address] [place], [place] [id number] COLON, ELIDA Self - patient is the insured Medical (General) History Medical History History ICD Code Denies [place],DM,CVA,renal disease Asthma Neg. screening colonoscopy 02/2009 Back pain/knee pain Surgical History Surgery Date(Month/Year) Partial hysterectomy
--- OUTSIDE RECORDS SUMMARY | 2025-01-24 10:46 | XMS_ITS | Clinical Summary ---
Author Organization [facility] Address [address] [place] [address] Phone Care Team Providers Care Igniter Capper Name Role Phone Luna Talbot MD Primary Care Provider [phone] Dariela Lott MD Unavailable Allergies Active Allergy [...] breast with stage 2 alexander metastasis per [place] Joint Committee on Cancer 7th edition (N2) 01/18/2024 Cancer Staging:Clinical stage from 01/18/2024:Stage IB(cT1c, cN1, cM0, G2, ER: Positive, [place]: Positive, HER2: Positive) - Unsigned Family History [...] Description 10/02/2025 2:00 PM EDT Office Visit [facility] Rad Onc [address] [place] [address] Estephania Armstrong MD [address] [place] [address] [email or web address] Health Maintenance Due Date Last Done [...] Insurance MANUEL HU NSPG PCP [facility] WELLSENSE NON NSPG PCP S[place] CL[place] CONNECTORCARE [place] NON NSPG PCP [place] CONNECTORCARE Member Subscriber Plan / Payer (Ef fective 2018-Present) Name:Colon, Fabiola Relation to Subscriber:Self Name:ColonKitFabiola Payer ID:[id number] Type:School AdmissionsO Address: [place] [address] WELLSENSE NON NSPG PCP S[place] CLARITY CONNECTOR[facility] NON NSPG PCP [place] [facility]ARE [place] NON NSPG PCP [place] [facility] Care Teams Igniter Capper Relationship Specialty Start Date End Date Luna Talbot MD [address] [place] [address] Drive [address] [place] [address] PCP - General Internal Medicine 01/18/24 Dariela Lott MD [address] [place] [address] 01/18/24 Additional Source Comments The information contained in this document represents components of the legal health record. It is not the complete legal health record.[facility]
[2025-01-24 11:30] VITALS: BP 140/76; PULSE 71; RESP 18; TEMP 37.1; O2SAT 93; BMI 33.3
--- NOTE | 2025-01-24 11:30 | MHC.OFFWIV ---
Intake Vital Signs 01/24/25 11:30 Height 5 ft 5 in Weight 200 lb BMI 33.3 BP 140/76 H Blood Pressure Location Rt brachial Position Sitting Respiration 18 Pulse 71 Pulse Source Pulse Oximeter Temp 98.7 F Temp Source Oral Pulse Oximetry (%) 93 Oxygen Delivery Method Room Air Intake Visit Reasons: ep sore throat Intake Note: Pt is here today c/o sore throat Patient Tobacco Use Status: Never used Tobacco Allergies seafood Allergy (Mild, Verified 01/24/25 11:31) Swelling ephedrine (From Primatene) Adverse Reaction (Severe, Verified 01/24/25 11:31) Shortness of Breath/Asthma Attack diphenhydramine (From Benadryl) Adverse Reaction (Intermediate, Verified 01/24/25 11:31) Shortness of Breath shellfish derived Adverse Reaction (Mild, Verified 01/24/25 11:31) Muscle Pain HPI HPI Comments History of Present Illness Details This is a 69-year-old female with a past medical history of breast cancer, seasonal allergies and asthma presenting for evaluation of a sore throat that started 2 days ago. Patient states the back of her mouth feels very dry. She denies having any fevers, chills, ear pain, difficulty swallowing, cough or shortness of breath. Patient states that she takes Singulair and Claritin for management of her seasonal allergies. [facility] Medical History (Updated 01/24/25 @ 11:59 by Sade Garcia PA-C) Essential tremor Acute respiratory disease Knee pain, bilateral Osteoarthritis of left knee Anxiety Acute bronchitis Anserine bursitis Obesity (BMI 30-39.9) Osteopenia Gallbladder polyp Overweight (BMI 25.0-29.9) Fatty liver Lumbar degenerative disc disease Vitamin D deficiency Hypercholesterolemia Lactose intolerance Allergic rhinitis Asthma Surgical History Hx of colonoscopy History of hysterectomy, supracervical Family History Father Diabetes Mother No problems noted. 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 Sexual orientation: Straight/Heterosexual Gender identity: Female Cognitive needs: No Hearing needs: No Vision needs: Yes Female Reproductive History Menstrual Age of Menarche: 15 Review of Systems Const All systems reviewed & are unremarkable except as noted in HPI and below Denies body aches, Denies chills, Denies fatigue, Denies fever(s) and Denies headache(s) Eyes Reports no additional complaints and Denies itchy eyes ENT Denies change in voice, Denies dysphagia, Denies otalgia, Denies headache(s), Denies post nasal drip, Denies sinus pressure, Reports sore throat, Denies throat swelling and Denies tongue swelling Card Reports no additional complaints and Denies dyspnea Resp Reports no additional complaints, Denies dyspnea and Denies wheezing GI Reports no additional complaints and Denies dysphagia Reports no additional complaints Musc Reports no additional complaints Skin/Breast Reports system reviewed and no additional complaints, except as documented Neuro Reports no additional complaints and Denies headache(s) Psych Reports no additional complaints Endo Reports no additional complaints and Denies fatigue Aller/Immun Reports no additional complaints, Denies urticaria, Denies itchy eyes, Denies seasonal rhinorrhea, Denies throat swelling, Denies tongue swelling and Denies wheezing Physical Exam Vital Signs: Last Vital Signs Temp 98.7 F 01/24/25 11:30 Pulse 71 01/24/25 11:30 Resp 18 01/24/25 11:30 BP 140/76 H 01/24/25 11:30 Pulse Ox 93 01/24/25 11:30 Oxygen Delivery Method Room Air 01/24/25 11:30 BMI result Body Mass Index 33.3 Const General: cooperative, healthy appearing, comfortable, no acute distress, well developed, alert, awake and Physically active; No ill appearing or lethargic Nutritional Appearance: well nourished Orientation/consciousness: patient oriented x3 and No lethargic Limitations: no limitations HEENT Head: Yes normal to inspection and Yes normocephalic Ears: hearing grossly normal bilaterally, external ears normal, TM normal on the right, left TM abnormal (TM bulging without erythema, minimal fluid level noted) and EAC's normal General nose exam: Normal external nose present Face and sinus: Yes normal facial exam Mouth: Normal oral and palatal mucosa present and moist mucous membranes Throat: Yes posterior oropharynx normal (There is no edema, erythema or exudates of the posterior oropharynx) and Yes postnasal drainage Eyes General: appearance normal, both eyes and all related structures Neck Lymphatic: no lymphadenopathy noted Resp Effort & Inspection: normal respiratory effort, able to speak in complete sentences, no nasal flaring and not tachypneic Auscultation: clear to auscultation bilaterally Cardio Rate: regular rate Rhythm: regular rhythm Skin General skin exam: no rashes or lesions noted Neuro General: patient oriented x3 Psych Appearance: grossly normal Mental Status: mental status grossly normal Insight: Good insight present (Psych) Judgement: Good judgement present (Psych) Results AMB Rapid Strep AMB Rapid Strep Negative Last Edit by Sherita Sarmiento CMA on 01/24/25 11:47 Results Reviewed Results Reviewed: Rapid strep test is negative and reviewed with patient Assessment & Plan Assessment & Plan (1) Pharyngitis: Comment: Patient's rapid strep test is negative. Patient's examination is consistent with a very minimal serous otitis likely related to her seasonal allergies. Patient has been prescribed Flonase but has not been taking this allergy season. Code(s): J02.9 - Acute pharyngitis, unspecified Qualifiers: Pharyngitis/tonsillitis etiology: unspecified etiology Qualified Code(s): J02.9 - Acute pharyngitis, unspecified Plan: Continue Claritin and Singulair as previously prescribed, initiate Flonase 1 spray each nostril once daily for at least 2 weeks. Orders: Orders AMB Rapid Strep Screen Today Z13.9 - Encounter for screening, unspecified Coding Level of Care Code Est Pt Level 3 (50421) Diagnoses Pharyngitis, unspecified etiology J02.9 Pharyngitis/tonsillitis etiology: unspecified etiology Time Spent (min) 20
== END 2025-01-24 11:55 | disposition home or self-care (01) ==
PROVIDERS: PCP Internal Medicine; Visit Provider Physician Assistant
DX: J02.9 Acute pharyngitis, unspecified (principal); Z13.9 Encounter for screening, unspecified

== ENCOUNTER → 2025-01-24 10:44 | Outpatient (BNVA) | payer OTHER, SELFPAY | PROVIDERS: PCP Internal Medicine; Visit Provider Physician Assistant | DX: J02.9 Acute pharyngitis, unspecified (principal) | CPT/HCPCS: 87880; 99212 ==

== ENCOUNTER 2025-01-30 08:05 | Outpatient (AMB) | payer OTHER, SELFPAY ==
[2025-01-30 08:18] VITALS: BMI 33.3
--- NOTE | 2025-01-30 08:18 | MHC.OFFVIS ---
Vital Signs 01/30/25 08:18 Height 5 ft 5 in Weight 200 lb BMI 33.3 Intake Visit Reasons: Rt foot pain Intake Note: Fabiola is a 69 year old female who presents today as a new patient for an evaluation of her right foot pain. Pt states her pain is located on the plantar aspect of the foot on both of her feet and she finds her right foot hurts more. She states she has been having pain for about 2 months. She states she has tried ice, heat, stretching exercises, CBD, Acupuncture and found minimal relief. She also notes swelling in her right foot as well. Allergies seafood Allergy (Mild, Verified 01/30/25 08:18) Swelling ephedrine (From Primatene) Adverse Reaction (Severe, Verified 01/30/25 08:18) Shortness of Breath/Asthma Attack diphenhydramine (From Benadryl) Adverse Reaction (Intermediate, Verified 01/30/25 08:18) Shortness of Breath shellfish derived Adverse Reaction (Mild, Verified 01/30/25 08:18) Muscle Pain HPI HPI Rt foot pain: Details: The patient is a 69-year-old female presenting with bilateral foot pain and swelling. The foot pain began approximately two months ago without any preceding injury and has progressively worsened. The symptoms are present particularly in the area between the third and fourth toes with numbness burning and tingling. Symptoms are exacerbated by tight footwear and alleviated by wearing sandals or loose socks. She has attempted various interventions, including acupuncture and elevating her feet, which did provide temporary relief. The patient has a significant medical history of breast cancer, for which she underwent chemotherapy and radiation therapy. She completed 36 cycles of chemotherapy over nearly three years, followed by surgery and radiation therapy. [facility] Medical History (Updated 01/30/25 @ 17:23 by Miguel Sanchez DPM) Essential tremor Acute respiratory disease Knee pain, bilateral Osteoarthritis of left knee Anxiety Acute bronchitis Anserine bursitis Obesity (BMI 30-39.9) Osteopenia Gallbladder polyp Overweight (BMI 25.0-29.9) Fatty liver Lumbar degenerative disc disease Vitamin D deficiency Hypercholesterolemia Lactose intolerance Allergic rhinitis Asthma Surgical History Hx of colonoscopy History of hysterectomy, supracervical Family History Father Diabetes Mother No problems noted. 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 No hyperkeratotic lesions. Neuro: Negative Tinel sign MSK: Positive Luís's click 3rd interspace bilaterally. Pain on forefoot squeeze bilaterally elicits patient's symptoms of burning and sharp pain. No pain on Yevgeniy's test or dorsiflexion/plantar flexion of 3rd and 4th MTPs bilaterally. Results Reviewed Results Reviewed: Podiatry X-ray Read: 12/05/2024 X-ray right foot 3 views (AP, MO, Lateral) reviewed which shows no fractures, dislocations, or gross abnormalities. Bone density is within normal limits. Normal metatarsal parabola. No evidence of swelling, foreign body, or calcifications. I personally reviewed the imaging and my findings are listed above. Assessment & Plan Assessment & Plan (1) Neuroma: Code(s): D36.10 - Benign neoplasm of peripheral nerves and autonomic nervous system, unspecified Category: Medical Plan: Discussed the differential diagnosis of her pain which includes neuroma versus capsulitis/metatarsalgia. Recommended wide shoe wear and neuroma/metatarsal pads. Instructed to perform range of motion and strengthening exercises for her toes. A handout was dispensed. She was recommended steroid injection however the patient deferred at this time. She was advised to take naproxen twice a day for the next 2 weeks. Patient states she already has naproxen at home so a new prescription will not be sent. Patient to follow up in 3 weeks. If symptoms persist, we will plan for cortisone injections. Discussed that she may need an MRI to definitively diagnose a neuroma in the future. Coding Level of Care Code New Pt Level 4 (62778) Diagnoses Neuroma D36.10 Time Spent (min) 35
== END 2025-01-30 08:45 | disposition home or self-care (01) ==
LOC: HO.HPODS 08:06
PROVIDERS: PCP Internal Medicine; Visit Provider Student in an Organized Health Care Education/Training Program
DX: D36.10 Benign neoplasm of peripheral nerves and autonomic nervous system, unspecified (principal)
CPT/HCPCS: 99204

== ENCOUNTER → 2025-01-30 08:05 | Outpatient (BNVA) | payer OTHER, SELFPAY | PROVIDERS: PCP Internal Medicine; Visit Provider Student in an Organized Health Care Education/Training Program | DX: D36.10 Benign neoplasm of peripheral nerves and autonomic nervous system, unspecified (principal); M79.671 Pain in right foot | CPT/HCPCS: 99202 ==

== ENCOUNTER → 2025-02-06 07:49 | Outpatient (REF) | payer OTHER, SELFPAY ==
--- OUTSIDE RECORDS SUMMARY | 2025-02-06 07:51 | XMS_ITS | Patient Health Record ---
Author Organization [facility] Address [address] [place] [address] Care Team Providers Care Turret Lathe Set Up Operator Name Role Phone Luna Talbot MD Primary Care Provider Barak Rhaman [phone] Reason For Referral No Information Medications Medication [...] Problem Status W/U Status Risk Notes Problem Screening for malignant neoplasm of colon (242797100) Encounter for screening for malignant neoplasm of colon (Z12.11) Active confirmed Problem Preprocedural examination ([id number]) Preprocedural examination (Z01.818) Active confirmed Plan Of Treatment Pending Test Test Name Order Date GI BIOPSY 03/07/2019 Future Test Test Name Order Date COLONOSCOPY 12/12/2018 Insurance Providers Payer Name Payer Address Payer Phone Subscriber Number Group Number Insured Name Patient Relationship to Insured Coverage Start Date Coverage End Date [facility] [address] [address] [place], [place] [id number] COLON, ELIDA Self - patient is the insured Medical (General) History Medical History History ICD Code Denies [place],DM,CVA,renal disease Asthma Neg. screening colonoscopy 02/2009 Back pain/knee pain Surgical History Surgery Date(Month/Year) Partial hysterectomy
--- OUTSIDE RECORDS SUMMARY | 2025-02-06 07:51 | XMS_ITS | Clinical Summary ---
Author Organization [facility] Address [address] [place] [address] Phone Care Team Providers Care Shirt Cleaner Name Role Phone Luna Talbot MD Primary Care Provider [phone] Dariela Lott MD Unavailable Allergies Active Allergy [...] breast with stage 2 alexander metastasis per [place] Joint Committee on Cancer 7th edition (N2) 01/18/2024 Cancer Staging:Clinical stage from 01/18/2024:Stage IB(cT1c, cN1, cM0, G2, ER: Positive, [place]: Positive, HER2: Positive) - Unsigned Family History [...] Description 10/02/2025 2:00 PM EDT Office Visit [facility] Rad Onc [address] [place] [address] Estephania Armstrong MD [address] [place] [address] [email or web address] Health Maintenance Due Date Last Done Comments [...] VACCINE (#1) 2024 COVID-19 VACCINE ( - 2024-2 6 season) 2024 SCREENING FOR DIABETES 03/24/2027 03/24/2024 [...] HU NSPG PCP [facility]US [facility]AFER [facility] WELLSENSE NON NSPG PCP [place] CLARITY CONNECTORCARE [place] NON NSPG PCP S[place] CL[employer] CONNECTORCARE [place] NON NSPG PCP S[facility] CLARITY CONNECTORCARE [facility] NON NSPG PCP [place] [employer] CONNECTORCARE [place] NON NSPG PCP [place] [facility] CONNECTORCARE Care Teams Shirt Cleaner Relationship Specialty Start Date End Date Luna Talbot MD [address] [place] [address] Drive [address] [place] [address] PCP - General Internal Medicine 01/18/24 Dariela Lott MD [address] [place] [address] 01/18/24 Additional Source Comments The information contained in this document represents components of the legal health record. It is not the complete legal health record.[facility]
--- NOTE | 2025-02-06 07:52 | CA_ITS ---
Transthoracic Echocardiogram Patient (Last, First, Middle): Fabiola Abbott, Gender: F Date of : 1955 Age: 69 Procedure Date: 02/06/2025 Procedure Type: Transthoracic Echocardiogram Location: OP Height: 165.1 cm Weight: 88. kg BSA: 1.95 m2 Heart Rate: 67 bpm BP: 140 / 70 mmHg Hamper Maker Machine: SOTO Referring MD: Wander Camejo MD Symptoms: R53.83 - Other fatigue Study Quality: Fair/limited ordered ECG Rhythm: Sinus Conclusions: - Normal left ventricular size and systolic function. There is mildly increased left ventricular wall thickness. The visually estimated ejection fraction is between 55-60%. There is no evidence of regional wall motion abnormalities. Abnormal diastolic function is noted. Spectral Doppler is indicative of an impaired relaxation filling pattern. E/E prime ratio is >15, consistent with elevated filling pressures. - Normal right ventricular cavity size and systolic function. - Limited assessment of cardiac valves. Findings Procedure Information The quality of the study was technically difficult. The study quality is limited by lung artifact. Left Ventricle Normal left ventricular size and systolic function. There is mildly increased left ventricular wall thickness. The visually estimated ejection fraction is between 55-60%. There is no evidence of regional wall motion abnormalities. Abnormal diastolic function is noted. Spectral Doppler is indicative of an impaired relaxation filling pattern. E/E prime ratio is >15, consistent with elevated filling pressures. Right Ventricle Normal right ventricular cavity size and systolic function. Venous The inferior vena cava is normal in size and collapses greater than 50% with inspiration. Pericardium/Pleural There is no evidence of pericardial effusion. Measurements 2D Linear Measurements IVSd: 1.18 0.6-0.9/0.6-1.0 cm LVIDd: 3.96 3.9-5.3/4.2-5.9 cm LVIDd Index: 2.03 2.4-3.2/2.2-3.1 cm/m2 LVIDs: 2.70 2.0-3.6 cm LVPWd: 1.13 0.7-1.1 cm LV Mass: 191.77 67-162/88-224 g LV Mass Index: 98.34 43-95/49-115 g/m2 LVOT Diam: 1.90 3.0+(-)1.3 cm 2D Systolic Function EF 4C: 67.60 >55% EF 2C: 53.30 >55% EF BiP: 59.80 >55% Mitral Valve MV Pk E: 0.72 MV PK A: 0.98 MV Decel Time: 201.00 E/A: 0.70 E'Lateral: 4.79 E'Medial: 3.26 E/E' Med: 22.20 E/E' Lat: 15.10 PHT: 59.00 MVA PHT: 3.73 Decel Brooke: 3.61 LVOT LVOT Pk Andrew: 1.25 LVOT Mn Andrew: 0.79 LVOT VTI: 0.24 LVOT Pk Grad: 6.00 LVOT Mn Grad: 3.00 LVOT Diam: 1.90 LVOT Area: 2.84 Diastolic Function MV Pk E: 0.72 MV Pk A: 0.98 E/A: 0.70 E'Medial: 3.26 E/E' Med: 22.20 E' Laterial: 4.79 E/E' Lat: 15.10 Right Ventricle TAPSE (mm): 21.80 TVS' Andrew: 11.00 Tricuspid Valve RA Press: 3.00 Updated in Other Vendor System with Status of Final Sundar Dawson MD electronically signed on 02/08/2025 9:04:23 PM with status of Final
== END ==
LOC: HO.CARD 07:49
PROVIDERS: PCP Internal Medicine; Visit Provider Internal Medicine
DX: R53.83 Other fatigue (principal)
CPT/HCPCS: 93308

== ENCOUNTER → 2025-02-06 07:52 | Outpatient (BNV) | payer OTHER, SELFPAY | PROVIDERS: PCP Internal Medicine; Visit Provider Internal Medicine Cardiovascular Disease | DX: I51.89 Other ill-defined heart diseases (principal) | CPT/HCPCS: 93308; 93321 ==

== ENCOUNTER 2025-02-12 09:39 | Outpatient (AMB) | payer OTHER, SELFPAY ==
[2025-02-12 09:44] VITALS: BMI 33.5
--- NOTE | 2025-02-12 09:44 | MHC.OFFVIS ---
Vital Signs 02/12/25 09:44 Height 5 ft 5 in Weight 201 lb 4 oz BMI 33.5 Intake Visit Reasons: Solitary cyst of unspecified breast Intake Note: This patient presents for an assessment for Solitary cyst of unspecified breast. Pt c/o; left breast, pain, redness. 11/03/2024: Chest CT 11/05/2024: MM Diag Bulk Plant Supervisor Required: No Accompanied by: Daughter Allergies seafood Allergy (Mild, Verified 02/12/25 09:53) Swelling ephedrine (From Primatene) Adverse Reaction (Severe, Verified 02/12/25 09:53) Shortness of Breath/Asthma Attack diphenhydramine (From Benadryl) Adverse Reaction (Intermediate, Verified 02/12/25 09:53) Shortness of Breath shellfish derived Adverse Reaction (Mild, Verified 02/12/25 09:53) Muscle Pain Medication List - Last Reconciled 02/12/25 by Gerald Dan MD albuterol sulfate 90 mcg/actuation (Ventolin HFA) 2 puffs inhalation Q4-6H PRN 30 days albuterol sulfate 2.5 mg (3 mL) inhalation Q4-6H PRN cholecalciferol (vitamin D3) 25 mcg PO DAILY fluticasone propionate 50 mcg/actuation (Flonase Allergy Relief) 2 sprays intranasal DAILY gabapentin 300 mg PO BEDTIME inhalational spacing device As directed letrozole 2.5 mg PO DAILY levalbuterol tartrate 45 mcg/actuation (Xopenex HFA) 2 puffs inhalation Q4-6H lidocaine 4% 1 appl topical BID lorazepam 0.5 mg PO BID PRN 15 days montelukast 10 mg PO BEDTIME naproxen 500 mg PO Q12H PRN potassium chloride ER 20 mEq PO DAILY propranolol ER (Inderal LA) 120 mg PO BEDTIME triamcinolone acetonide 0.5% 1 appl topical BID HPI HPI Solitary cyst of unspecified breast: Details: 69 year old female referred for a cyst in the breast. She had undergone an I&D of an abscess in the left axilla with Dr. De Dios last June,. It was presumed to be secondary to an infected cyst. She is here for a follow-up for possible excision as she thinks that she still has a ?lump? on this same area She does have a history of left breast invasive ductal carcinoma last year and had undergone lumpectomy sentinel biopsy with Dr. De Dios after neoadjuvant treatment. She follows Dr. Lott and says she has a already completed adjuvant chemotherapy as well as radiation to the breast. She denies any drainage from the axilla She does have this worsening left shoulder pain which causes very limited range of motion. [facility] Medical History (Updated 02/12/25 @ 10:11 by Gerald Dan MD) Left shoulder pain Sebaceous cyst of axilla Essential tremor Acute respiratory disease Knee pain, bilateral Osteoarthritis of left knee Anxiety Acute bronchitis Anserine bursitis Obesity (BMI 30-39.9) Osteopenia Gallbladder polyp Overweight (BMI 25.0-29.9) Fatty liver Lumbar degenerative disc disease Vitamin D deficiency Hypercholesterolemia Lactose intolerance Allergic rhinitis Asthma Surgical History Hx of colonoscopy History of hysterectomy, supracervical Family History Father Diabetes Mother No problems noted. 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 Sexual orientation: Straight/Heterosexual Gender identity: Female Cognitive needs: No Hearing needs: No Vision needs: Yes Female Reproductive History Menstrual Age of Menarche: 15 Review of Systems Const Denies chills and Denies fever(s) ENT Reports disequilibrium Card Denies chest pain, Denies dyspnea and Denies dyspnea on exertion Resp Denies cough, Denies dyspnea and Denies dyspnea on exertion GI Denies hematochezia and Denies change in bowel habits Denies hematuria Musc Reports abnormal gait, Denies back pain and Reports limited range of motion Neuro Reports abnormal gait, Denies focal weakness, Denies convulsions and Reports disequilibrium Psych Denies depression and Denies mood swings Physical Exam Vital Signs: BMI result Body Mass Index 33.5 Const Other: Walks with difficulty, requiring assistance from the daughter General: comfortable and no acute distress Orientation/consciousness: patient oriented x3 Neck Neck: Yes no lymphadenopathy Chest Other: No palpable breast masses, radiation changes of the left breast noted, palpable cyst, no induration, no fluctuance, no redness in the axilla Resp Auscultation: clear to auscultation bilaterally Cardio Rhythm: regular rhythm GI Palpation (GI): Soft to palpation, nontender and no guarding Neuro General: patient oriented x3 Assessment & Plan Assessment & Plan (1) Sebaceous cyst of axilla: Code(s): L72.3 - Sebaceous cyst Category: Medical Plan: It appears that she had an I&D of an abscess in the left axilla from a previously infected cyst. This is nonpalpable currently keep. Examination does not suggest any residual cyst, abscess, or fluctuance. There is no induration I told her that it does not look like we need to do any excision currently. (2) Left shoulder pain: Code(s): M25.512 - Pain in left shoulder Category: Medical Plan: She has significant pain in the left breast with movement. She had very limited range of motion now. She has never had any imaging study for this. I will order for an MRI of the left breast and we will update her on the results The patient and her daughter understand the above. Coding Level of Care Code Est Pt Level 3 (03112) Diagnoses Sebaceous cyst of axilla L72.3 Left shoulder pain M25.512
--- OUTSIDE RECORDS SUMMARY | 2025-02-12 11:00 | XMS_ITS | Clinical Summary ---
Author Organization [facility] Address [address] [place] [address] Phone Care Team Providers Care Ultrasonic Tester Name Role Phone Luna Talbot MD Primary Care Provider [phone] Dariela Lott MD Unavailable [phone] Allergies Active Allergy Reactions Criticality Noted Date [...] breast with stage 2 alexander metastasis per [place] Joint Committee on Cancer 7th edition (N2) 01/18/2024 Cancer Staging:Clinical stage from 01/18/2024:Stage IB(cT1c, cN1, cM0, G2, ER: Positive, PA: Positive, HER2: Positive) - Unsigned Family History [...] Description 10/02/2025 2:00 PM EDT Office Visit [facility] [place] [facility] Rad Onc [address] [place] [address] Estephania Armstrong MD [address] [place] [address] [email or web address] Health Maintenance Due Date Last Done Comments [...] Insurance MANUEL HU NSPG PCP [facility] NON NSPG PCP [place] [place] NON NSPG PCP S[place] CONNECTORCARE [place] NON NSPG PCP S[place] CLARITY CONNECTORCARE [facility] NON NSPG PCP [place] CONNE[place]CARE [place] NON NSPG PCP [place] [employer] CONNECTORCARE Care Teams Ultrasonic Tester Relationship Specialty Start Date End Date Luna Talbot MD [address] [place] [address] Drive [address] [place] [phone] PCP - General Internal Medicine 01/18/24 Dariela Lott MD [address] [place] [address] 01/18/24 Additional Source Comments The information contained in this document represents components of the legal health record. It is not the complete legal health record.[facility]
== END 2025-02-12 10:19 | disposition home or self-care (01) ==
LOC: HO.HGS 09:40
PROVIDERS: PCP Internal Medicine; Visit Provider Surgery
DX: L72.3 Sebaceous cyst (principal); M25.512 Pain in left shoulder
CPT/HCPCS: 99213

== ENCOUNTER → 2025-02-12 09:39 | Outpatient (BNVA) | payer OTHER, SELFPAY | PROVIDERS: PCP Internal Medicine; Visit Provider Surgery | DX: M25.512 Pain in left shoulder (principal); L72.3 Sebaceous cyst | CPT/HCPCS: 99212 ==

== ENCOUNTER 2025-02-20 08:13 | Outpatient (AMB) | payer OTHER, SELFPAY ==
--- OUTSIDE RECORDS SUMMARY | 2025-02-20 08:19 | XMS_ITS | Clinical Summary ---
Author Organization [facility] Address [address] [place] [address] Phone Care Team Providers Care Speeder Frame Tender Name Role Phone Luna Talbot MD Primary Care Provider [phone] Dariela Lott MD Unavailable Allergies Active Allergy [...] breast with stage 2 alexander metastasis per [place] Joint Committee on Cancer 7th edition (N2) 01/18/2024 Cancer Staging:Clinical stage from 01/18/2024:Stage IB(cT1c, cN1, cM0, G2, ER: Positive, CT: Positive, HER2: Positive) - Unsigned Family History [...] Description 10/02/2025 2:00 PM EDT Office Visit [facility] At [facility] Rad Onc [address] [place] [address] Estephania Armstrong MD [address] [place] [address] [email or web address] Health Maintenance Due Date Last Done Comments [...] Insurance MANUEL HU NSPG PCP [facility] NSPG PCP [place] CL[place]ITY CONNE[place] [place] NON NSPG PCP SILVER CLARITY CONNECTORCARE [place] NON NSPG PCP SILVER CLARITY CONNECTOR[facility] NON NSPG PCP [place] CONNECTORCARE [place] NON NSPG PCP [place] CL[employer]ITY CONNECTORCARE Care Teams Speeder Frame Tender Relationship Specialty Start Date End Date Luna Talbot MD [address] [place] [address] Drive [address] [place] [phone] PCP - General Internal Medicine 01/18/24 Dariela Lott MD [address] [place] [address] 01/18/24 Additional Source Comments The information contained in this document represents components of the legal health record. It is not the complete legal health record.[facility]
--- OUTSIDE RECORDS SUMMARY | 2025-02-20 08:19 | XMS_ITS | Patient Health Record ---
Author Organization [facility] Address [address] [place] [address] Care Team Providers Care Director Of Officiating Name Role Phone Luna Talbot MD Primary Care Provider Barak Rahman [phone] Reason For Referral No Information Medications Medication [...] Problem Screening for malignant neoplasm of colon (965697344) Encounter for screening for malignant neoplasm of colon (Z12.11) Active confirmed Problem Preprocedural examination (125801444180181) Preprocedural examination (Z01.818) Active confirmed Plan Of Treatment Pending Test Test Name Order Date GI BIOPSY 03/07/2019 Future Test Test Name Order Date COLONOSCOPY 12/12/2018 Insurance Providers Payer Name Payer Address Payer Phone Subscriber Number Group Number Insured Name Patient Relationship to Insured Coverage Start Date Coverage End Date [facility] [address] [address] [place], [place] [id number] COLON, ELIDA Self - patient is the insured Medical (General) History Medical History History ICD Code Denies [place],DM,CVA,renal disease Asthma Neg. screening colonoscopy 02/2009 Back pain/knee pain Surgical History Surgery Date(Month/Year) Partial hysterectomy
--- NOTE | 2025-02-20 08:25 | A.OFFVIS_ITS ---
Vital Signs 02/20/25 08:26 Height 5 ft 5 in Weight 201 lb BMI 33.4 Intake Visit Reasons: Rt foot pain Intake Note: Fabiola is a 69 year old female who presents today for a follow up on her neuroma. On her last visit she was recommended to perform range of motion and strengthening exercises for her toes and to utilize wide shoe wear and neuroma/metatarsal pads. She states the metatarsal pads has been helping her however she notes her foot is still swollen. Allergies seafood Allergy (Mild, Verified 02/20/25 08:25) Swelling ephedrine (From Primatene) Adverse Reaction (Severe, Verified 02/20/25 08:25) Shortness of Breath/Asthma Attack diphenhydramine (From Benadryl) Adverse Reaction (Intermediate, Verified 02/20/25 08:25) Shortness of Breath shellfish derived Adverse Reaction (Mild, Verified 02/20/25 08:25) Muscle Pain HPI HPI Rt foot pain: Details: The patient is a 69-year-old female returns for 3 week follow up of bilateral foot pain and swelling. She states the left foot pain has mostly resolved with the padding placed last time. She still has right foot pain, worst only on certain movements when walking. She no longer describes it as a numbness, burning, or tingling. History: The foot pain began around November 2024 without any preceding injury and has progressively worsened. The symptoms are present particularly in the area between the third and fourth toes with numbness burning and tingling. Symptoms are exacerbated by tight footwear and alleviated by wearing sandals or loose socks. She has attempted various interventions, including acupuncture and elevating her feet, which did provide temporary relief. The patient has a significant medical history of breast cancer, for which she underwent chemotherapy and radiation therapy. She completed 36 cycles of chemotherapy over nearly three years, followed by surgery and radiation therapy. [facility] Medical History (Updated 02/20/25 @ 17:28 by Miguel Sanchez DPM) Left shoulder pain Sebaceous cyst of axilla Essential tremor Acute respiratory disease Knee pain, bilateral Osteoarthritis of left knee Anxiety Acute bronchitis Anserine bursitis Obesity (BMI 30-39.9) Osteopenia Gallbladder polyp Overweight (BMI 25.0-29.9) Fatty liver Lumbar degenerative disc disease Vitamin D deficiency Hypercholesterolemia Lactose intolerance Allergic rhinitis Asthma Surgical History Hx of colonoscopy History of hysterectomy, supracervical Family History Father Diabetes Mother No problems noted. 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 No hyperkeratotic lesions. Neuro: Negative Tinel sign MSK: Pain on forefoot squeeze bilaterally elicits patient's symptoms of burning and sharp pain. No pain on Yevgeniy's test or dorsiflexion/plantar flexion of 3rd and 4th MTPs bilaterally. moderate tenderness on palpation of right plantar 2nd MTP. Results Reviewed Results Reviewed: Podiatry X-ray Read: 12/05/2024 X-ray right foot 3 views (AP, MO, Lateral) reviewed which shows no fractures, dislocations, or gross abnormalities. Bone density is within normal limits. Normal metatarsal parabola. No evidence of swelling, foreign body, or calcifications. I personally reviewed the imaging and my findings are listed above. Assessment & Plan Assessment & Plan (1) Neuroma: Code(s): D36.10 - Benign neoplasm of peripheral nerves and autonomic nervous system, unspecified Category: Medical Plan: * Discussed the differential diagnosis of her pain which includes neuroma versus capsulitis/metatarsalgia. * Recommended wide shoe wear. She was instructed to purchase gel metatarsal pads, and orthotics with metatarsal pads. * Instructed to perform range of motion and strengthening exercises for her toes. A handout was dispensed at her initial visit. * She was recommended steroid injection however the patient deferred at this time. * She was advised to take naproxen twice a day for the next 2 weeks. Patient states she already has naproxen at home so a new prescription will not be sent. * Follow up in 2 months Discussed that she may need an MRI to definitively diagnose a neuroma in the future. (2) Swelling of lower extremity: Code(s): M79.89 - Other specified soft tissue disorders Category: Medical Plan: * Recommended compression stockings * due to bilateral pitting edema, she was recommended to see her PCP and plan for further work up. Coding Level of Care Code Est Pt Level 3 (68617) Diagnoses Neuroma D36.10 Swelling of lower extremity M79.89 Time Spent (min) 25
[2025-02-20 08:26] VITALS: BMI 33.4
== END 2025-02-20 08:42 | disposition home or self-care (01) ==
LOC: HO.HPODS 08:14
PROVIDERS: PCP Internal Medicine; Visit Provider Student in an Organized Health Care Education/Training Program
DX: D36.10 Benign neoplasm of peripheral nerves and autonomic nervous system, unspecified (principal); M79.89 Other specified soft tissue disorders
CPT/HCPCS: 99213

== ENCOUNTER → 2025-02-20 08:13 | Outpatient (BNVA) | payer OTHER, SELFPAY | PROVIDERS: PCP Internal Medicine; Visit Provider Student in an Organized Health Care Education/Training Program | DX: D36.13 Benign neoplasm of peripheral nerves and autonomic nervous system of lower limb, including hip (principal); M79.89 Other specified soft tissue disorders | CPT/HCPCS: 99212 ==

== ENCOUNTER 2025-03-05 14:06 | Outpatient (REF) | payer OTHER, SELFPAY ==
--- NOTE | ~2025-03-05 | CT_ITS ---
EXAMINATION: CT CHEST WITH IV CONTRAST INDICATION: Shortness of breath on exertion. Breast cancer. COMPARISON: There are no prior studies available for comparison. TECHNIQUE: Helical CT scan of the chest was performed following administration of intravenous contrast. Patient received 65 mL Omnipaque 350 IV contrast. Coronal and sagittal reformatted images were generated and reviewed. This CT exam was performed with one or more of the following dose reduction techniques: automated exposure control, adjustment of the mA and/or kV according to patient size, use of iterative reconstruction technique. DLP: 267 mGy-cm CHEST: THYROID: The thyroid is unremarkable. LUNGS: Stable volume loss to the left hemithorax with shift of the central mediastinal structures to the left. Stable mixed consolidative and groundglass opacity in the left upper lobe extending to the peripheral or central pleural surface and increased reticular markings likely representing post radiation change. Subtler similar changes in the superior segment of the left lower lobe also questionable for post radiation change similar to previous exam. Linear scarring or subsegmental atelectasis in the anterior segment of the right upper lobe, unchanged. 1 cm peripheral or subpleural cyst in the right lower lobe near the major fissure unchanged. No new pulmonary findings. Central airways are clear. MEDIASTINUM: There is no mediastinal lymphadenopathy. NYA: There is no hilar lymphadenopathy. CARDIOVASCULATURE: The heart is normal in size. There is no pericardial effusion. The thoracic aorta is normal in caliber. Pulmonary arteries are normal in caliber. No pulmonary embolism appreciated on non-CTA exam. There is a right jugular port with tip projecting over the cavoatrial junction. DEGREE OF CORONARY CALCIFICATION: none PLEURA: There is no pleural effusion. No pneumothorax. MAIN AIRWAYS: The mainstem bronchi and proximal branches are patent. AXILLA: There is no axillary lymphadenopathy. Stable postsurgical/treatment changes to the left breast with skin thickening and low attenuation collection in the central breast adjacent to surgical clips. Again this may represent a seroma. No right chest wall mass.3 BONES AND SOFT TISSUES: Degenerative changes of the spine and shoulders. No fracture or bone lesion. UPPER ABDOMEN: The visualized portions of the liver, spleen, and adrenals are unremarkable. CT/CT chest w IV con IMPRESSION: Stable chest CT from October 2024. Probable post radiation change to the left upper and left lower lobe. No new pulmonary findings. Electronically signed by: Melody Gutiérrez MD 03/05/2025 03:11 PM RICHARD
[2025-03-05] MEDS: iohexoL 350 MG/ML 100 ML INFUS..BTL 65 ML IV (14:55)
--- OUTSIDE RECORDS SUMMARY | 2025-03-05 17:28 | XMS_ITS | Patient Health Record ---
Author Organization [facility] Address [address] [place] [address] Care Team Providers Care Manager Fund Name Role Phone Luna Talbot MD Primary Care Provider Barak Rahman [phone] Reason For Referral No Information Medications Medication [...] Problem Screening for malignant neoplasm of colon (870934468) Encounter for screening for malignant neoplasm of colon (Z12.11) Active confirmed Problem Preprocedural examination ([id number]) Preprocedural examination (Z01.818) Active confirmed Plan Of Treatment Pending Test Test Name Order Date GI BIOPSY 03/07/2019 Future Test Test Name Order Date COLONOSCOPY 12/12/2018 Insurance Providers Payer Name Payer Address Payer Phone Subscriber Number Group Number Insured Name Patient Relationship to Insured Coverage Start Date Coverage End Date [facility] [address] [address] [place], [place] [id number] COLON, ELIDA Self - patient is the insured Medical (General) History Medical History History ICD Code Denies [place],DM,CVA,renal disease Asthma Neg. screening colonoscopy 02/2009 Back pain/knee pain Surgical History Surgery Date(Month/Year) Partial hysterectomy
--- OUTSIDE RECORDS SUMMARY | 2025-03-05 17:28 | XMS_ITS | Clinical Summary ---
Author Organization [facility] Address [address] [place] [address] Phone Care Team Providers Care Per Diem Rn Name Role Phone Luna Talbot MD Primary Care Provider Dariela Lott MD Unavailable Allergies Active Allergy [...] breast with stage 2 alexander metastasis per [place] Joint Committee on Cancer 7th edition (N2) 01/18/2024 Cancer Staging:Clinical stage from 01/18/2024:Stage IB(cT1c, cN1, cM0, G2, ER: Positive, HI: Positive, HER2: Positive) - Unsigned Family History [...] Description 10/02/2025 2:00 PM EDT Office [place] [facility] Rad Onc [address] [place] [address] Estephania Armstrong MD [address] [place] [address] [email or web address] Health Maintenance Due Date Last Done Comments [...] 2022 INFLUENZA VACCINE (#1) 2024 COVID-19 VACCINE (1 - 2024-2 6 season) 2024 SCREENING FOR DIABETES 03/24/2027 03/24/2024 RSV VACCINE (1 - 1-dose 75+ series) 2032 HEPATITIS A VACCINES Aged Out No long er eligible based on patient's age to complete this topic HIB VACCINES Aged Out No longer eligi ble based on patient's age to complete this topic IPV VACCINES Aged Out No longer eligi ble based on patient's age to complete this topic MENINGOCOCCAL VACCINES (ACWY) Aged Out No longer eligible based on patient's age to complete this topic MENINGOCOCCAL VACCINES (B) Aged Out N o longer eligible based on patient's age to complete this topic Medical Devices Not on file Insurance MANUEL GONSALESG PCP JESUS SCHAFER CONNE[employer]CARE [employer] NON NSPG PCP [place] CL[employer]ITY CONNECTORCARE [place] NON NSPG PCP S[place] [employer] CONNECTORCARE [place] NON NSPG PCP S[facility] NON NSPG PCP S[facility] NON NSPG PCP S[place]VER CLARITY CONNECTORCARE Care Teams Per Diem Rn Relationship Specialty Start Date End Date Luna Talbot MD [address] [place] [address] Drive [address] [place] [phone] PCP - General Internal Medicine 01/18/24 Dariela Lott MD [address] [place] [address] 01/18/24 Additional Source Comments The information contained in this document represents components of the legal health record. It is not the complete legal health record.[facility]
== END 2025-03-05 14:07 | disposition home or self-care (01) ==
LOC: HO.CT 14:06
PROVIDERS: PCP Internal Medicine; Visit Provider Internal Medicine Medical Oncology
DX: R06.02 Shortness of breath (principal); Z85.3 Personal history of malignant neoplasm of breast
CPT/HCPCS: 71260; Q9967

== ENCOUNTER → 2025-03-05 14:08 | Outpatient (BNV) | payer OTHER, SELFPAY | PROVIDERS: PCP Internal Medicine; Visit Provider Radiology Diagnostic Radiology | DX: R06.02 Shortness of breath (principal); C50.919 Malignant neoplasm of unspecified site of unspecified female breast | CPT/HCPCS: 71260 ==

== ENCOUNTER 2025-03-25 08:14 | Outpatient (REF) | payer OTHER, SELFPAY ==
--- NOTE | ~2025-03-25 | XR_ITS ---
EXAMINATION: XR SHOULDER 2 OR MORE VIEWS LEFT HISTORY: M25.512 - Pain in left shoulder COMPARISON: There are no prior studies available for comparison. FINDINGS: Five views of the left shoulder are submitted. Osseous mineralization is normal. There is no fracture or dislocation. The glenohumeral joint is maintained. There is moderate degenerative change of the AC joint. The soft tissues are unremarkable. XR/XR shoulder LT min 2V IMPRESSION: Moderate degenerative change of the AC joint. Electronically signed by: Barak Alexander MD 03/25/2025 08:52 AM EST JAE
--- OUTSIDE RECORDS SUMMARY | 2025-03-25 08:20 | XMS_ITS | Clinical Summary ---
Author Organization [facility] Address [address] [place] [address] Phone Care Team Providers Care Hat Block Maker Name Role Phone Luna Talbot MD Primary Care Provider [phone] Dariela Lott MD Unavailable Allergies Active Allergy [...] breast with stage 2 alexander metastasis per Malagasy Joint Committee on Cancer 7th edition (N2) 01/18/2024 Cancer Staging:Clinical stage from 01/18/2024:Stage IB(cT1c, cN1, cM0, G2, ER: Positive, IN: Positive, HER2: Positive) - Unsigned Family History [...] Description 10/02/2025 2:00 PM EDT Office Visit [facility] Rad Onc [address] [place] [address] Estephania Armstrong MD [address] [place] [phone] [email or web address] Health Maintenance Due Date Last Done Comments [...] Insurance MANUEL HU NSPG PCP [facility]US SCH[facility] NON NSPG PCP SILVER CLARITY CONNECTORCARE [place] NON NSPG PCP SILVER CLARITY CONNECTORCARE [place]LL[place]ENSE NON NSPG PCP SILVER CLARITY CONNECTORCARE [facility] NON NSPG PCP [place] CLARITY CONNECTORCARE [place] NON NSPG PCP [place] CLARITY CONNECTORCARE Care Teams Hat Block Maker Relationship Specialty Start Date End Date Luna Talbot MD [address] [place] [address] Drive [address] [place] [phone] PCP - General Internal Medicine 01/18/24 Dariela Lott MD [address] [place] [phone] 01/18/24 Additional Source Comments The information contained in this document represents components of the legal health record. It is not the complete legal health record.[facility]
== END 2025-03-25 08:15 | disposition home or self-care (01) ==
LOC: HO.XRAY 08:14
PROVIDERS: PCP Internal Medicine; Visit Provider Surgery
DX: M25.512 Pain in left shoulder (principal)
CPT/HCPCS: 73030

== ENCOUNTER → 2025-03-25 08:19 | Outpatient (BNV) | payer OTHER, SELFPAY | PROVIDERS: PCP Internal Medicine; Visit Provider Radiology Diagnostic Radiology | DX: M19.012 Primary osteoarthritis, left shoulder (principal) | CPT/HCPCS: 73030 ==

== ENCOUNTER 2025-03-31 07:58 | Outpatient (REF) | payer OTHER, SELFPAY ==
--- NOTE | ~2025-03-31 | MM_ITS ---
EXAMINATION: DXA BONE DENSITY AXIAL HISTORY: Osteopenia TECHNIQUE: [employer] Dual energy absorptiometry (DEXA) of the lumbar spine, total left hip, and femoral neck was performed. COMPARISON: Comparison is made with the prior examination dated 03/27/2023. FINDINGS: The bone mineral density of the lumbar spine is 0.939 g/cm2, corresponding to a T-score of -2.0, and a Z-score of -1.3. This is indicative of osteopenia. This represents a BMD change of -4.3% compared to the prior exam. This is statistically significant. The bone mineral density of the left total hip is 0.820 g/cm2, corresponding to a T-score of -1.5, and a Z-score of -0.9. This is indicative of osteopenia. This represents a BMD change of -1.4% compared to the prior exam. This is not statistically significant. The bone mineral density of the left femoral neck is 0.751 g/cm2, corresponding to a T-score of -2.1, and a Z-score of -1.1. This is indicative of osteopenia. This represents a BMD change of -12.8% compared to the prior exam. FRACTURE RISK: The FRAX index suggests a ten year probability of major osteoporotic fracture of 6.1%, and of hip fracture 1.0%. MM/XR DEXA axial skeleton IMPRESSION: Based on bone mineral density, and according to World Health Organization (WHO) criteria, the diagnosis is consistent with osteopenia. Statistically, 68% of repeat scans fall within 1 SD (+/- 0.010 g/cm2 for AP spine L1-L4) and 1 SD (+/- 0.012 g/cm2 for femur total) FRAX is a trademark of the [employer] [place] for Metabolic Bone Disease, a World Health Organization (WHO) Collaborating Center. Electronically signed by: Barak Alexander MD 03/31/2025 08:35 AM [facility]
--- OUTSIDE RECORDS SUMMARY | 2025-03-31 08:24 | XMS_ITS | Clinical Summary ---
Author Organization [facility] Address [address] [place] [address] Phone Care Team Providers Care Switchboard Wirer Name Role Phone Luna Talbot MD Primary Care Provider [phone] Dariela Lott MD Unavailable Allergies Active Allergy [...] breast with stage 2 alexander metastasis per Latvian Joint Committee on Cancer 7th edition (N2) 01/18/2024 Cancer Staging:Clinical stage from 01/18/2024:Stage IB(cT1c, cN1, cM0, G2, ER: Positive, TN: Positive, HER2: Positive) - Unsigned Family History [...] Description 10/02/2025 2:00 PM EDT Office Visit [facility] Rad Onc [address] [place] [address] Estephania Armstrong MD [address] [place] [phone] [email or web address] Health Maintenance Due Date Last Done Comments [...] Insurance MANUEL HU NSPG PCP [facility] NON NSPG PCP SILVER CLARITY CONNECTORCARE [place] NON NSPG PCP SILVER CLARITY CONNECTORCARE WELLSENSE NON NSPG PCP SILVER CLARITY [facility] NON NSPG PCP [place] CLARITY CONNECTORCARE [place] NON NSPG PCP [place]DE[place] CLARITY CONNECTORCARE Care Teams Switchboard Wirer Relationship Specialty Start Date End Date Luna Talbot MD [address] [place] [address] Drive [address] [place] [phone] PCP - General Internal Medicine 01/18/24 Dariela Lott MD [address] [place] [phone] 01/18/24 Additional Source Comments The information contained in this document represents components of the legal health record. It is not the complete legal health record.[facility]
--- OUTSIDE RECORDS SUMMARY | 2025-03-31 08:24 | XMS_ITS | Patient Health Record ---
Author Organization [facility] Address [address] [place] [address] Care Team Providers Care Latex Spooler Name Role Phone Luna Talbot MD Primary Care Provider Barak Rahman [phone] Reason For Referral No Information Medications Medication SIG (Take, Route, Frequency, Duration) Notes Start Date End Date Status Xopenex 1.25 MG/3ML Nebulization Solution 3 ml Inhalation every 8 hrs 12/12/2018 Active Naproxen 500 MG Tablet TAKE ONE TABLET B Y MOUTH EVERY 12 HOURS WITH FOOD OR MILK NEEDED Oral prn PRN Active Flovent Diskus 100 MCG/BLIST Aerosol Powder Breath Activated INHALE ONE PUFF BY MOUTH TWICE A DAY Inhalation Twice a day Active Gabapentin 300 MG Capsule TAKE ONE CAPSU LE BY MOUTH EVERY DAY Oral prn PRN Active Montelukast Sodium 10 MG Tablet TAKE ONE TABLET BY MOUTH EVERY DAY Oral Once a day Active Immunizations Vaccine Route Administration Date Status Comme nts Influenza Unknown 12/12/2018 Refused Social History Tobacco Use: Social History Observation Description Date Details (start date - stop date) Never Smoker NA - NA Social History Drugs/Alcohol: Social Info Question Answer Notes Alcohol Screen Did you have a drink containing alcohol in the past year? Yes How often did you have a drink containing alcohol in the past year? Monthly or less (1 point) How many drinks did you have on a typical day when you were drinking in the past year? 1 or 2 drinks (0 point) How often did you have 6 or more drinks on one occasion in the past year? 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 Section Notes: Nonsmoker; no sig alcohol Problems Problem Type SNOMED Code ICD Code Onset Dates Problem Status W/U Status Risk Notes Problem Screening for malignant neoplasm of colon (709897443) Encounter for screening for malignant neoplasm of colon (Z12.11) Active confirmed Problem Preprocedural examination (896152970573519) Preprocedural examination (Z01.818) Active confirmed Plan Of Treatment Pending Test Test Name Order Date GI BIOPSY 03/07/2019 Future Test Test Name Order Date COLONOSCOPY 12/12/2018 Insurance Providers Payer Name Payer Address Payer Phone Subscriber Number Group Number Insured Name Patient Relationship to Insured Coverage Start Date Coverage End Date [facility] [address] [address] [place], [place] [id number] COLON, ELIDA Self - patient is the insured Medical (General) History Medical History History ICD Code Denies DC,DM,CVA,renal disease Asthma Neg. screening colonoscopy 02/2009 Back pain/knee pain Surgical History Surgery Date(Month/Year) Partial hysterectomy
== END 2025-03-31 07:59 | disposition home or self-care (01) ==
LOC: HO.MAMMO 07:58
PROVIDERS: Absent Provider Hospitalist; PCP Internal Medicine; Visit Provider Internal Medicine Medical Oncology
DX: M85.80 Other specified disorders of bone density and structure, unspecified site (principal); J96.01 Acute respiratory failure with hypoxia; J84.10 Pulmonary fibrosis, unspecified; I51.89 Other ill-defined heart diseases; R60.0 Localized edema
CPT/HCPCS: 77080

== ENCOUNTER → 2025-03-31 08:15 | Outpatient (BNV) | payer OTHER, SELFPAY | PROVIDERS: PCP Internal Medicine; Visit Provider Radiology Diagnostic Radiology | DX: E28.39 Other primary ovarian failure (principal) | CPT/HCPCS: 77080 ==

== ENCOUNTER 2025-03-31 13:11 | Outpatient (AMB) | payer OTHER, SELFPAY ==
--- NOTE | 2025-03-31 13:26 | A.OFFVIS_ITS ---
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 The patient is a 69-year-old lady with a known history of left-sided breast cancer back in 2023. She is status post radiation and also now chemotherapy. The patient has been complaining of increasing dyspnea on exertion for the last year. Moderate severity even with minimal activity. Part of the workup included a CT scan of the chest demonstrating underlying pulmonary fibrosis primarily in the left breast in the upper left area and also in the mid left area. In addition to that she also has other areas of atelectasis. The patient also underwent an echocardiogram demonstrating diastolic dysfunction and some hypertrophy. We did go for brief walking oximetry in the office and the patient did desaturate down to 88%. The patient is placed on 2 L pulse and she did improve her pulse ox to 94% with activity. She did also develop significant tachycardia up to 136 beats per minute with minimal activity while using the oxygen. Therefore, we had to rest to allow the heart rate did come down. The patient does again have diastolic dysfunction and she will benefit from additional diuresis to try to get her fluid status in a better state. In the meantime the patient is high risk for thromboembolic disease with a history of breast cancer. She is not on any blood thinners. Will go ahead and check a blood work. She did have an elevated D- dimer before. Although she had a CT with IV contrast back in February that time and was off to assess for blood clots. Therefore will was rechecked the D-dimer and then most likely request a CTA to make sure that there are no thromboembolic disease that could be affecting her oxygenation. The patient will also undergo pulmonary function studies and will follow-up in 4-6 weeks. [facility] Medical History (Updated 03/31/25 @ 21:16 by Emanuel Connelly MD) Lower extremity edema Diastolic dysfunction Pulmonary fibrosis Dyspnea Left shoulder pain Sebaceous cyst of axilla Essential tremor Acute respiratory disease Knee pain, bilateral Osteoarthritis of left knee Anxiety Acute bronchitis Anserine bursitis Obesity (BMI 30-39.9) Osteopenia Gallbladder polyp Overweight (BMI 25.0-29.9) Fatty liver Lumbar degenerative disc disease Vitamin D deficiency Hypercholesterolemia Lactose intolerance Allergic rhinitis Asthma Surgical History Hx of colonoscopy History of hysterectomy, supracervical Family History Father Diabetes Mother No problems noted. Brother Myocardial infarction Hypertension Sister Bursitis Lewy body dementia Parkinson disease Sister Diabetes Brother Asthma Social History Household Members: Spouse Household Members Other:: 1 Housing: House Alcohol intake: current Alcohol intake frequency: holidays/special occasions only Comment: sips Patient Tobacco Use Status: Never used Tobacco Tobacco use type: Cigarette e-Cigarette/Vaping Use: Never Used Second Hand Smoke Exposure: No Use of substances other than those prescribed or required for medical reasons: No Have you been hit, kicked, punched, or otherwise hurt by someone within the past year? 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 Sexual orientation: Straight/Heterosexual Gender identity: Female Cognitive needs: No Hearing needs: No Vision needs: Yes Female Reproductive History Menstrual Age of Menarche: 15 Review of Systems Const Denies chills and Denies fever(s) ENT Reports disequilibrium Card Denies chest pain, Denies dyspnea and Reports dyspnea on exertion Resp Denies cough, Denies dyspnea and Reports dyspnea on exertion GI Denies hematochezia and Denies change in bowel habits Denies hematuria Musc Reports abnormal gait, Denies back pain and Reports limited range of motion Neuro Reports abnormal gait, Denies focal weakness, Denies convulsions and Reports disequilibrium Psych Denies depression and Denies mood swings Physical Exam Vital Signs: Last Vital Signs Pulse 82 03/31/25 13:30 BP 170/96 H 03/31/25 13:30 Pulse Ox 94 03/31/25 13:30 Oxygen Delivery Method Room Air 03/31/25 13:30 BMI result Body Mass Index 34.5 Const General: comfortable and no acute distress Orientation/consciousness: patient oriented x3 HEENT Head: Yes normocephalic General nose exam: Abnormal mucous membranes and turbinates present erythematous Face and sinus: Yes sinuses nontender Mouth: moist mucous membranes Neck Neck: Yes supple Resp Effort & Inspection: normal respiratory effort, able to speak in complete sentences and no audible wheezes Auscultation: no crackles, no rales, no rhonchi, no wheezes and diminished lung sounds Cardio Rate: tachycardic Heart sounds: S1 normal heart sound present and S2 normal heart sound present GI Palpation (GI): Soft to palpation Skin General skin exam: no rashes or lesions noted Neuro General: patient oriented x3 Extrem General: No clubbing, No cyanosis and Yes edema Psych Other: Very emotional, uncontrollable crying. Speech and movement: Clear speech present Affect: Anxious affect present Office Procedures 6 Minute Walk Time:: 21:21 SPO2 % at rest: 94 Pulse at rest: 99 SPO2 % during excercise: 88 Pulse during excercise: 136 Distance in yards walked: 150 Martin Score: 6 Supplemental Oxygen: desaturated to 88% on RA, placed on 2l/pulse and ambulated maintaining pox 93-94% with activity 12152 - 6 Minute Walk Results Reviewed Results Reviewed: personally reviewed CT chest 02/2025 with pulmonary fibrosis, not right timing for r/o PE Assessment & Plan Assessment & Plan (1) Acute hypoxemic respiratory failure: Code(s): J96.01 - Acute respiratory failure with hypoxia Category: Medical (2) Dyspnea: Code(s): R06.00 - Dyspnea, unspecified Category: Medical Qualifiers: Dyspnea type: dyspnea on exertion Qualified Code(s): R06.09 - Other forms of dyspnea (3) Pulmonary fibrosis: Code(s): J84.10 - Pulmonary fibrosis, unspecified Category: Medical (4) Diastolic dysfunction: Code(s): I51.89 - Other ill-defined heart diseases Category: Medical (5) Lower extremity edema: Code(s): R60.0 - Localized edema Category: Medical Plan Bloodwork Ddimer+, will need a CTA Start oxygen 2l/pulse with activity and 2l/min while sleeping PFTs Lasix x 3 days F/U 4-6 weeks Orders: Orders Basic Metabolic Panel Today J96.01 - Acute respiratory failure with hypoxia, R06.00 - Dyspnea, unspecified Troponin-I High Sensitivity Today J96.01 - Acute respiratory failure with hypoxia, R06.00 - Dyspnea, unspecified NT Pro B Type Natriuretic Pept Today J96.01 - Acute respiratory failure with hypoxia, R06.00 - Dyspnea, unspecified D Dimer High Sensitivity Today J96.01 - Acute respiratory failure with hypoxia, R06.00 - Dyspnea, unspecified Erythrocyte Sedimentation Rate Today J96.01 - Acute respiratory failure with hypoxia, R06.00 - Dyspnea, unspecified PFT pulmonary function test Today J84.10 - Pulmonary fibrosis, unspecified Medications: New furosemide (Lasix) 20 mg PO DAILY 7 tabs 0RF 7 days Coding Level of Care Code New Pt Level 5 (53179) Diagnoses Acute hypoxemic respiratory failure J96.01 Dyspnea on exertion R06.09 Dyspnea type: dyspnea on exertion Pulmonary fibrosis J84.10 Diastolic dysfunction I51.89 Lower extremity edema R60.0 CPT Codes Coding ([id number]) Time Spent (min) 60
[2025-03-31 13:30] VITALS: BP 170/96; PULSE 82; O2SAT 94; BMI 34.5
--- OUTSIDE RECORDS SUMMARY | 2025-03-31 17:32 | XMS_ITS | Clinical Summary ---
Author Organization [facility] Address [address] [place] [address] Phone Care Team Providers Care Monitoring Coordinator Name Role Phone Luna Talbot MD Primary Care Provider [phone] Dariela Lott MD Unavailable [phone] Allergies Active Allergy Reactions Criticality Noted Date [...] breast with stage 2 alexander metastasis per [place] Joint Committee on Cancer 7th edition (N2) 01/18/2024 Cancer Staging:Clinical stage from 01/18/2024:Stage IB(cT1c, cN1, cM0, G2, ER: Positive, ID: Positive, HER2: Positive) - Unsigned Family History [...] Description 10/02/2025 2:00 PM EDT Office Visit [facility] Rad Onc [address] [place] [address] Estephania Armstrong MD [address] [place] [phone] [email or web address] Health Maintenance Due Date Last Done Comments [...] Insurance MANUEL HU NSPG PCP [facility] SCHAF[facility] NON NSPG PCP SILVER CLARITY CONNECTORCARE [place] NON NSPG PCP SILVER CLARITY CONNECTORCARE WELLSENSE NON NSPG PCP SILVER CLARITY CONNECTORC[facility] NON NSPG PCP IDA CLARITY CONNECTORCARE [place] NON NSPG PCP IDA CLARITY CONNECTORCARE Care Teams Monitoring Coordinator Relationship Specialty Start Date End Date Luna Talbot MD [address] [place] [address] Drive [address] [place] [phone] PCP - General Internal Medicine 01/18/24 Dariela Lott MD [address] [place] [address] 01/18/24 Additional Source Comments The information contained in this document represents components of the legal health record. It is not the complete legal health record.[facility]
[2025-03-31 21:19] VITALS: PULSE 99; O2SAT 94
== END 2025-03-31 14:12 | disposition home or self-care (01) ==
LOC: HO.HPS 13:12
PROVIDERS: PCP Internal Medicine; Referring Provider Internal Medicine Medical Oncology; Visit Provider Hospitalist
DX: J96.01 Acute respiratory failure with hypoxia (principal); R06.09 Other forms of dyspnea; J84.10 Pulmonary fibrosis, unspecified; I51.89 Other ill-defined heart diseases; R60.0 Localized edema
CPT/HCPCS: 94618; 99205

== ENCOUNTER 2025-04-02 08:59 | Outpatient (REF) | payer OTHER, SELFPAY ==
--- NOTE | 2025-04-02 09:03 | PFT_ITS ---
Spirometry [] Lung Volumes [] Diffusion Capacity [] Methacholine Challenge [] Flow Volume Loops [] MVV [] MIP/MEP(Max inspiratory pressure/Max expiratory pressure) [] 6 Minute Walk Test [] ABG [] Interpretation [] MTDD
[2025-04-02 09:50] VITALS: PULSE 97
== END 2025-04-02 09:00 | disposition home or self-care (01) ==
LOC: HO.RESP 08:59
PROVIDERS: PCP Internal Medicine; Visit Provider Hospitalist
DX: J84.10 Pulmonary fibrosis, unspecified (principal)
CPT/HCPCS: 94060; 94640; 94727; 94729

== ENCOUNTER → 2025-04-02 09:03 | Outpatient (BNV) | payer OTHER, SELFPAY | PROVIDERS: PCP Internal Medicine; Visit Provider Internal Medicine Pulmonary Disease | DX: J84.10 Pulmonary fibrosis, unspecified (principal) | CPT/HCPCS: 94060; 94727; 94729 ==

== ENCOUNTER 2025-04-06 08:07 | Outpatient (REF) | payer OTHER, SELFPAY ==
--- NOTE | ~2025-04-06 | CT_ITS ---
EXAMINATION: CT ANGIOGRAM CHEST CLINICAL INFORMATION: R78.89. Dyspnea. 69-year-old female with breast CA. COMPARISON: 04/04/2025. TECHNIQUE: Multiple axial images were obtained through the chest after the administration of 65 mL of Omnipaque 350 intravenous contrast. Extensive vascular post-processing including two-dimensional and three-dimensional reformatted images were created and reviewed on an independent workstation. This CT examination was performed using dose optimization techniques as appropriate, variously including the following: *Automated exposure control *Adjustment of mA and/or kV according to patient size (this includes techniques or standardized protocols for targeted exams where dose is matched to indication/reason for exam; i.e. extremities or head) *Use of iterative reconstruction technique FINDINGS: VASCULAR: Study quality is diagnostic. There is minimal respiratory motion degradation. There is no evidence of pulmonary arterial filling defect to suggest pulmonary embolus. The main pulmonary artery is normal in size. No evidence of right heart strain. No significant contrast reflux into the hepatic IVC or veins. The aorta is normal in caliber and course with mild atheromatous calcification. There is no aneurysm or acute aortic syndrome. The heart is mildly enlarged. There is no pericardial effusion. There are minimal coronary calcifications. LUNGS: The lungs demonstrate diffuse mosaic attenuation, most likely on the basis of partial expiratory state and air trapping (Inbowing of the posterior membranous trachea noted). There are similar subpleural reticular/fibrotic changes in the left upper lobe, similar to the recent prior exam, and in keeping with probable radiation changes from left breast treatment. No significant change in scarring versus atelectasis in the inferior aspect of the left upper lobe. No suspicious nodules are evident within confines of underlying hypoventilatory changes. Small airways appear normal. There are no effusions or pneumothoraces. MEDIASTINUM: A right chest port is in place with the tip terminating at the cavoatrial junction. The esophagus appears mildly patulous, unchanged. There is no abnormal lymphadenopathy or mass. There is a small type I hiatus hernia present. AXILLA/CHEST WALL: There is no axillary lymphadenopathy. Stable postsurgical/treatment changes to the left breast with skin thickening and low attenuation collection in the central breast adjacent to surgical clips. Again this may represent a seroma. No right chest wall mass. UPPER ABDOMEN: There is mild diffuse fatty infiltration of the liver. Minimal hyperplasia of the adrenal glands, unchanged. Remainder the imaged upper abdominal contents appear normal. OSSEOUS STRUCTURES: Unremarkable. CT/CT angio chest PE protocol IMPRESSION: 1. There is no evidence of pulmonary embolus. There is no evidence of acute aortic syndrome. 2. There is mild cardiac enlargement, without pericardial effusion. 3. Lungs demonstrate mosaic attenuation, most likely secondary to expiratory changes and mild air trapping. There is stable subpleural reticular change in the left upper lobe most likely related to post radiation change. There are no new and pulmonary abnormalities present. 4. Additional ancillary findings as discussed in the body of the report. Electronically signed by: Griffin Hinkle MD 04/06/2025 09:25 AM RICHARD
[2025-04-06] MEDS: iohexoL 350 MG/ML 100 ML INFUS..BTL IV (09:07)
== END 2025-04-06 08:08 | disposition home or self-care (01) ==
LOC: HO.CT 08:07
PROVIDERS: PCP Internal Medicine; Visit Provider Hospitalist
DX: J96.01 Acute respiratory failure with hypoxia (principal); R78.89 Finding of other specified substances, not normally found in blood
CPT/HCPCS: 71275; Q9967

== ENCOUNTER → 2025-04-06 08:09 | Outpatient (BNV) | payer OTHER, SELFPAY | PROVIDERS: PCP Internal Medicine; Visit Provider Radiology Diagnostic Radiology | DX: I51.7 Cardiomegaly (principal); R91.8 Other nonspecific abnormal finding of lung field | CPT/HCPCS: 71275 ==

== ENCOUNTER 2025-04-08 08:07 | Outpatient (AMB) | payer OTHER, SELFPAY ==
--- NOTE | 2025-04-08 08:09 | MHC.OFFVIS ---
Vital Signs 04/08/25 08:13 Height 5 ft 5 in Weight 205 lb 7.533 oz BMI 34.2 BP 132/84 Blood Pressure Location Rt brachial Position Sitting Pulse 77 Pulse Source Pulse Oximeter Pulse Oximetry (%) 96 Oxygen Delivery Method Room Air Intake Visit Reasons: Impaired glucose tolerance (oral) Intake Note: New patient internally referred by PCP for Impaired Glucose. Lap Winder Required: No Accompanied by: Daughter Allergies seafood Allergy (Mild, Verified 04/08/25 08:14) Swelling ephedrine (From Primatene) Adverse Reaction (Severe, Verified 04/08/25 08:14) Shortness of Breath/Asthma Attack diphenhydramine (From Benadryl) Adverse Reaction (Intermediate, Verified 04/08/25 08:14) Shortness of Breath shellfish derived Adverse Reaction (Mild, Verified 04/08/25 08:14) Muscle Pain Medication List - Last Reconciled 04/08/25 by Barak Kamara MD albuterol sulfate 90 mcg/actuation (Ventolin HFA) 2 puffs inhalation Q4-6H PRN 30 days albuterol sulfate 2.5 mg (3 mL) inhalation Q4-6H PRN cholecalciferol (vitamin D3) 25 mcg PO DAILY fluticasone propionate 50 mcg/actuation (Flonase Allergy Relief) 2 sprays intranasal DAILY furosemide (Lasix) 20 mg PO DAILY 7 days gabapentin 300 mg PO BEDTIME inhalational spacing device As directed letrozole 2.5 mg PO DAILY levalbuterol tartrate 45 mcg/actuation (Xopenex HFA) 2 puffs inhalation Q4-6H lidocaine 4% 1 appl topical BID lorazepam 0.5 mg PO BID PRN 15 days montelukast 10 mg PO BEDTIME naproxen 500 mg PO Q12H PRN potassium chloride ER 20 mEq PO DAILY propranolol ER (Inderal LA) 120 mg PO BEDTIME triamcinolone acetonide 0.5% 1 appl topical BID HPI Comments Details: History of Present Illness The patient is a 69-year-old female presenting for evaluation of elevated fasting blood glucose levels. She has a family history of type 2 diabetes in her father. The patient reports experiencing symptoms of peripheral neuropathy, described as burning and tingling in the feet. She denies any personal history of diabetes, including gestational diabetes, as well as any known diabetic eye findings, kidney problems, heart attacks, or strokes. Her pertinent past medical history includes breast cancer, which was treated with chemotherapy approximately two years ago. Since her chemotherapy, she has had persistently low potassium levels. She also has a history of pulmonary fibrosis, for which she has not been treated with steroids, and takes Lasix. The patient reports experiencing fatigue and has a long-standing history of snoring since childhood, but has not been evaluated for sleep apnea. She denies thyroid problems, unusual hair growth on the face, or stretch garcia. Exercise The patient's ability to exercise is significantly limited by her pulmonary condition, as increased activity and walking cause her oxygen levels to drop. She is expected to receive home oxygen therapy, which may facilitate participation in core physical therapy at home. The goal is to engage in activities such as walking or seated exercises for 30 minutes, 4-5 times per week. Diet History The patient has never consulted with a wardrobe specialty worker. Results - Labs (from 03/31): Potassium was low normal, sodium was okay, BUN was normal, GFR was fine, and glucose was 76 mg/dL. - Other Labs (from 03/31): Troponin was checked due to shortness of breath, and calcium levels were normal. [facility] Medical History (Updated 03/31/25 @ 21:16 by Emanuel Connelly MD) Lower extremity edema Diastolic dysfunction Pulmonary fibrosis Dyspnea Left shoulder pain Sebaceous cyst of axilla Essential tremor Acute respiratory disease Knee pain, bilateral Osteoarthritis of left knee Anxiety Acute bronchitis Anserine bursitis Obesity (BMI 30-39.9) Osteopenia Gallbladder polyp Overweight (BMI 25.0-29.9) Fatty liver Lumbar degenerative disc disease Vitamin D deficiency Hypercholesterolemia Lactose intolerance Allergic rhinitis Asthma Surgical History Hx of lumpectomy Hx of colonoscopy History of hysterectomy, supracervical Family History Father Diabetes Mother No problems noted. 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 - Neurological: Reports burning and tingling in the feet. - Respiratory: Reports snoring since childhood and shortness of breath on exertion. - Endocrine: Denies history of thyroid problems, unusual facial hair growth, or stretch garcia. - Cardiovascular: Denies history of heart attacks. - Eyes: Denies any eye findings related to elevated blood sugar. - Genitourinary: Denies kidney problems. Physical Exam Exam Exam: Physical Exam - Neck: Examination of the posterior neck reveals hyperpigmentation, consistent with acanthosis nigricans. - Thyroid: No abnormalities noted on palpation. - Lungs: Auscultated. - Abdomen: Palpated. Absence of Cushingoid features. Absence of acromegalic features. Neck exam reveals nl size thyroid about 15 gms. No thyroid nodules palpable. Heart S1 S2, Reg R/R. No M/R G. Skin exam reveals absence of vitiligo or acanthosis nigricans. Visual exam of foot performed. No ulcerations or open lesions. No inter digit maceration or fissuring. No onychomycosis, no callouses. Sensation intact to monofilament exam. Vibratory sensation is normal with 128 Hz tuning fork. Vital Signs: Last Vital Signs Pulse 77 04/08/25 08:13 BP 132/84 04/08/25 08:13 Pulse Ox 96 04/08/25 08:13 Oxygen Delivery Method Room Air 04/08/25 08:13 BMI result Body Mass Index 34.2 Const Other: No Cushingoid or acromegalic features. Thyroid nl size 15 gms. There is presence of acanthosis nigicans Assessment & Plan Assessment & Plan (1) Impaired glucose tolerance: Code(s): R73.02 - Impaired glucose tolerance (oral) Category: Medical Plan Assessment and Plan 1. Impaired Fasting Glucose / Prediabetes The patient presents with elevated fasting blood sugars, a family history of type 2 diabetes, and physical exam findings of acanthosis nigricans, all suggestive of insulin resistance and prediabetes. Her peripheral neuropathy may be an early complication of this metabolic state. The plan is to first establish a baseline with lab work, including a hemoglobin A1c, lipid profile, and TSH, which have already been ordered by her PCP. A nutrition referral will be placed. Given her normal kidney function, metformin was considered but will be held due to the theoretical risk of lactic acidosis in the setting of hypoxia from her lung disease. GLP-1 agonists were discussed as a potent option for weight loss and diabetes prevention but are not currently pursued due to insurance barriers. The primary focus will be on lifestyle modification, including diet and exercise, with a goal of a 20-pound weight loss to prevent progression to diabetes. Will follow up if A1c results are in the diabetic range. Otherwise can f/u with PCP at this point 2. Suspected Obstructive Sleep Apnea The patient reports a lifelong history of snoring. Untreated sleep apnea is a significant contributor to weight gain and insulin resistance, making it difficult to manage blood sugar. She has an upcoming appointment with Neurology for a sleep study at the end of the month, which is appropriate and should be kept. 3. Limited Exercise Tolerance secondary to Pulmonary Fibrosis The patient's pulmonary fibrosis limits her ability to exercise, a bustamante component of diabetes prevention. She is scheduled to receive home oxygen, which will facilitate engagement in home-based physical therapy and increase her activity level safely. The patient had an opportunity to ask questions regarding treatment plan. The patient expressed understanding and agreement with the above treatment plan. The patient is aware they should contact our office by phone for worsening glucose readings Patient was informed and verbally consented to the use of an ambient scribe for clinic note documentation during this visit. Discussion Notes I discussed with the patient that her elevated fasting sugars, family history, and the dark patch on the back of her neck are signs of insulin resistance, which is the precursor to type 2 diabetes. I explained that diet and exercise are a more effective intervention for preventing diabetes than medication, with a 50% reduction in risk, and that a modest weight loss of around 20 pounds could halt the disease's progression. We discussed medication options for diabetes prevention. While metformin is a possibility, I expressed hesitation due to the rare but potential risk of lactic acidosis given her hypoxia from lung disease. I also informed her about GLP-1 agonist medications like Zepbound, which are very effective for weight loss, but noted that insurance is unlikely to cover them without a formal diabetes diagnosis. We agreed to hold off on medications at this time. I emphasized the importance of her upcoming sleep study, as untreated sleep apnea can make weight loss and sugar control nearly impossible. I noted that she is already taking all the right steps with her scheduled appointments and tests. The plan is to proceed with the ordered labs, the nutrition consult, and home physical therapy once she receives her oxygen. I reassured her that she does not have diabetes yet and that it is preventable. I advised that she does not need to schedule a follow-up with me unless her A1c comes back in the diabetic range, at which point she can return to discuss further options. Patient Instructions - Get the blood tests that your primary doctor ordered, which include a hemoglobin A1c, cholesterol panel, and thyroid level test. You will need to go to the lab on a day you have not eaten. - A referral has been placed for you to see our wardrobe specialty worker, Judy, to discuss your diet. - It is very important to get a small amount of exercise, such as walking for 30 minutes, 4 to 5 times per week, once you are able. - Once you get your home oxygen tank, you can begin working with a physical therapist on gentle exercises you can do at home, even while sitting. - A weight loss of around 20 pounds can help stop you from developing diabetes. - Keep your appointment for the sleep study at the end of the month to check for sleep apnea, as this condition can affect your weight and blood sugar. - You do not need to make a follow-up appointment with me at this time. However, if your A1c blood test result comes back in the diabetic range, please call to schedule a visit to discuss treatment options. - You can find more information at these websites: [email or web address], [email or web address], and [email or web address]. Orders: Orders Lipid Panel Today R73.02 - Impaired glucose tolerance (oral), Z00.00 - Encounter for general adult medical examination without abnormal findings Free T4 (Free Thyroxine) Today R73.02 - Impaired glucose tolerance (oral) Thyroid Stimulating Hormone Today R73.02 - Impaired glucose tolerance (oral) Hemoglobin A1c Today R73.02 - Impaired glucose tolerance (oral), Z00.00 - Encounter for general adult medical examination without abnormal findings Referrals Nutrition/Dietitian Referral R73.02 - Impaired glucose tolerance (oral) Coding Level of Care Code New Pt Level 4 (93145) Add On Problem Visit Only Diagnoses Impaired glucose tolerance R73.02
[2025-04-08 08:13] VITALS: BP 132/84; PULSE 77; O2SAT 96; BMI 34.2
--- OUTSIDE RECORDS SUMMARY | 2025-04-08 08:14 | XMS_ITS | Patient Health Record ---
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 Section Notes: Nonsmoker; no sig alcohol Problems Problem Type SNOMED Code ICD Code Onset Dates Problem Status W/U Status Risk Notes Problem Screening for malignant neoplasm of colon (861899642) Encounter for screening for malignant neoplasm of colon (Z12.11) Active confirmed Problem Preprocedural examination (807639223682431) Preprocedural examination (Z01.818) Active confirmed Plan Of Treatment Pending Test Test Name Order Date GI BIOPSY 03/07/2019 Future Test Test Name Order Date COLONOSCOPY 12/12/2018 Insurance Providers Payer Name Payer Address Payer Phone Subscriber Number Group Number Insured Name Patient Relationship to Insured Coverage Start Date Coverage End Date [facility] [address] [address] [place], [place] [id number] COLON, ELIDA Self - patient is the insured Medical (General) History Medical History History ICD Code Denies [place],DM,CVA,renal disease Asthma Neg. screening colonoscopy 02/2009 Back pain/knee pain Surgical History Surgery Date(Month/Year) Partial hysterectomy
--- OUTSIDE RECORDS SUMMARY | 2025-04-08 08:14 | XMS_ITS | Clinical Summary ---
Author Organization [facility] Address [address] [place] [id number] Phone Care Team Providers Care Visual Designer Name Role Phone Luna Talbot MD Primary Care Provider [phone] Dariela Lott MD Unavailable Allergies Active Allergy [...] breast with stage 2 alexander metastasis per [place] [employer] on Cancer 7th edition (N2) 01/18/2024 Cancer Staging:Clinical stage from 01/18/2024:Stage IB(cT1c, cN1, cM0, G2, ER: Positive, TX: Positive, HER2: Positive) - Unsigned Family History [...] Description 10/02/2025 2:00 PM EDT Office Visit [facility] [address] [place] [phone] Estephania Armstrong MD [address] [place] [address] [email or web address] Health Maintenance Due Date Last [...] Insurance MANUEL HU NSPG PCP JESUS SCHAFER CONNECTORCARE WELLSENSE NON NSPG PCP [place] CONNE[employer]CARE [place]ENSE NON NSPG PCP [place] CONNE[employer]CARE [place] NON NSPG PCP S[place] CONNECTORCARE [facility] NON NSPG PCP [place] [employer] CONNECTORCARE [place] NON NSPG PCP [place] [employer]CTOR[employer]ARE Care Teams Visual Designer Relationship Specialty Start Date End Date Luna Talbot MD [address] [place] [address] Drive [address] [place] [phone] PCP - General Internal Medicine 01/18/24 Dariela Lott MD [address] [place] [id number] 01/18/24 Additional Source Comments The information contained in this document represents components of the legal health record. It is not the complete legal health record.[facility]
== END 2025-04-08 08:50 | disposition home or self-care (01) ==
LOC: HO.ENCR 08:08
PROVIDERS: PCP Internal Medicine; Visit Provider Internal Medicine Endocrinology, Diabetes & Metabolism
DX: R73.02 Impaired glucose tolerance (oral) (principal)
CPT/HCPCS: 99204

== ENCOUNTER → 2025-04-08 08:07 | Outpatient (BNVA) | payer OTHER, SELFPAY | PROVIDERS: PCP Internal Medicine; Visit Provider Internal Medicine Endocrinology, Diabetes & Metabolism | DX: R73.02 Impaired glucose tolerance (oral) (principal); R73.03 Prediabetes; J84.10 Pulmonary fibrosis, unspecified; R68.89 Other general symptoms and signs | CPT/HCPCS: 99202 ==

== ENCOUNTER 2025-04-09 08:32 | Outpatient (REF) | payer OTHER, SELFPAY ==
--- OUTSIDE RECORDS SUMMARY | 2025-04-09 08:58 | XMS_ITS | Clinical Summary ---
Author Organization [facility] Address [address] [place] [address] Phone Care Team Providers Care Video Systems Engineer Name Role Phone Luna Talbot MD Primary Care Provider [phone] Dariela Lott MD Unavailable Allergies Active Allergy [...] breast with stage 2 alexander metastasis per [place] [employer] on Cancer 7th edition (N2) [...] Description 10/02/2025 2:00 PM EDT Office Visit [facility] [address] [place] [phone] Estephania Armstrong MD [address] [place] [address] [email or web address] Health Maintenance Due Date Last Done Comments [...] WELLSENSE NON NSPG PCP [place] CONNECTORCARE [place] NON NSPG PCP S[place] [employer] CONNECTORCARE WELLSENSE NON NSPG PCP S[place] [employer] CONNECTORCARE [facility] NON NSPG PCP [place] CONNECTORCARE [place] NON NSPG PCP [place] CONNECTORCARE Care Teams Video Systems Engineer Relationship Specialty Start Date End Date Luna Talbot MD [address] [place] [address] Drive [address] [place] [phone] PCP - General Internal Medicine 01/18/24 Dariela Lott MD [address] [place] [id number] 01/18/24 Additional Source Comments The information contained in this document represents components of the legal health record. It is not the complete legal health record.[facility]
--- OUTSIDE RECORDS SUMMARY | 2025-04-09 08:59 | XMS_ITS | Patient Health Record ---
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 Section Notes: Nonsmoker; no sig alcohol Problems Problem Type SNOMED Code ICD Code Onset Dates Problem Status W/U Status Risk Notes Problem Screening for malignant neoplasm of colon (424038155) Encounter for screening for malignant neoplasm of colon (Z12.11) Active confirmed Problem Preprocedural examination (044501716990240) Preprocedural examination (Z01.818) Active confirmed Plan Of Treatment Pending Test Test Name Order Date GI BIOPSY 03/07/2019 Future Test Test Name Order Date COLONOSCOPY 12/12/2018 Insurance Providers Payer Name Payer Address Payer Phone Subscriber Number Group Number Insured Name Patient Relationship to Insured Coverage Start Date Coverage End Date [facility] [address] [address] [place], [place] [id number] COLON, ELIDA Self - patient is the insured Medical (General) History Medical History History ICD Code Denies [place],DM,CVA,renal disease Asthma Neg. screening colonoscopy 02/2009 Back pain/knee pain Surgical History Surgery Date(Month/Year) Partial hysterectomy
[2025-04-09 11:24] LABS: Cholesterol 173 mg/dL (<200); Free T4 (Free Thyroxine) 0.79 ng/dL (0.71-1.85); HDL Cholesterol 43 mg/dL (>40); Thyroid Stimulating Hormone 3.06 uIU/mL (0.32-4.0); Triglycerides 79 mg/dL (<150)
== END 2025-04-09 08:33 | disposition home or self-care (01) ==
LOC: HO.10HDL 08:32
PROVIDERS: Visit Provider Internal Medicine Endocrinology, Diabetes & Metabolism
DX: Z00.00 Encounter for general adult medical examination without abnormal findings (principal); R73.02 Impaired glucose tolerance (oral)
CPT/HCPCS: 36415; 80061; 83036; 84439; 84443

== ENCOUNTER 2025-04-22 14:59 | Outpatient (AMB) | payer OTHER, SELFPAY ==
--- NOTE | 2025-04-22 15:10 | A.OFFVIS_ITS ---
Intake Visit Reasons: B/L hand Tremors Allergies seafood Allergy (Mild, Verified 04/08/25 08:14) Swelling ephedrine (From Primatene) Adverse Reaction (Severe, Verified 04/08/25 08:14) Shortness of Breath/Asthma Attack diphenhydramine (From Benadryl) Adverse Reaction (Intermediate, Verified 04/08/25 08:14) Shortness of Breath shellfish derived Adverse Reaction (Mild, Verified 04/08/25 08:14) Muscle Pain Medication List - Last Reconciled 04/22/25 by Margarito Deras MD albuterol sulfate 90 mcg/actuation (Ventolin HFA) 2 puffs inhalation Q4-6H PRN 30 days albuterol sulfate 2.5 mg (3 mL) inhalation Q4-6H PRN cholecalciferol (vitamin D3) 25 mcg PO DAILY fluticasone propionate 50 mcg/actuation (Flonase Allergy Relief) 2 sprays intranasal DAILY furosemide (Lasix) 20 mg PO DAILY 7 days gabapentin 300 mg PO BEDTIME inhalational spacing device As directed letrozole 2.5 mg PO DAILY levalbuterol tartrate 45 mcg/actuation (Xopenex HFA) 2 puffs inhalation Q4-6H lidocaine 4% 1 appl topical BID lorazepam 0.5 mg PO BID PRN 15 days montelukast 10 mg PO BEDTIME 30 days naproxen 500 mg PO Q12H PRN potassium chloride ER 20 mEq PO DAILY propranolol ER (Inderal LA) 120 mg PO BEDTIME triamcinolone acetonide 0.5% 1 appl topical BID HPI Comments Details: The patient is a 69 year old female presenting for evaluation of head tremor. She first noticed the tremor approximately five years ago, and it has been slowl y worsening over time. The tremor significantly worsened following chemotherapy and radiation treatment for breast cancer. The tremor impairs her ability to feed herself, write, use her phone, brush her teeth, and do her hair. It is exacerbated by stress. The patient was diagnosed with breast cancer in August 2021. Her treatment included chemotherapy, followed by a lumpectomy with lymph node removal, and then subsequent radiation and another round of chemotherapy because cancer was still present after surgery. A CT scan of her brain in June of the previous year was normal. She reports a history of depression for the past two years, since her cancer diagnosis. She has also experienced significant life stressors, including the deaths of her brother and sister. She has taken fluoxetine in the past. The patient's medical history is also significant for pulmonary fibrosis, and she reports shortness of breath. A recent chest CT showed post-radiation changes, and she uses supplemental oxygen which was started when her saturation was at 88%. She also has a history of peripheral neuropathy in her feet, restless leg syndrome, urinary incontinence, borderline high blood pressure, asthma and acid reflux. Her current medications include propranolol 120 mg, which she has been taking for about two months but not daily. It was prescribed for her tremor but is not helping. She also takes gabapentin at night for neuropathy and restless legs, montelukast for asthma, lorazepam as needed, an albuterol inhaler as needed, Flonase as needed, and a medication for acid reflux. [facility] Medical History (Updated 04/22/25 @ 15:33 by Margarito Deras MD) Lower extremity edema Diastolic dysfunction Pulmonary fibrosis Dyspnea Left shoulder pain Sebaceous cyst of axilla Essential tremor Acute respiratory disease Knee pain, bilateral Osteoarthritis of left knee Anxiety Acute bronchitis Anserine bursitis Obesity (BMI 30-39.9) Osteopenia Gallbladder polyp Overweight (BMI 25.0-29.9) Fatty liver Lumbar degenerative disc disease Vitamin D deficiency Hypercholesterolemia Lactose intolerance Allergic rhinitis Asthma Surgical History Hx of lumpectomy Hx of colonoscopy History of hysterectomy, supracervical Family History Father Diabetes Mother No problems noted. 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 - Reports memory is okay . - Respiratory: Reports shortness of breath. - Psychiatric: Reports depression for the past two years and anxiety related to her cancer diagnosis. - Genitourinary: Reports urinary incontinence. - Extremities: Reports neuropathy in her feet and restless leg syndrome. Assessment & Plan Assessment & Plan (1) Essential tremor: Code(s): G25.0 - Essential tremor Category: Medical (2) Depression: Code(s): F32.A - Depression, unspecified Category: Medical Qualifiers: Depression Type: unspecified Qualified Code(s): F32.A - Depression, unspecified (3) Depression: Code(s): F32.A - Depression, unspecified Category: Medical Qualifiers: Depression Type: major depressive disorder Major depression recurrence: single episode Active/Remission status: currently active Major depression episode severity: moderate Qualified Code(s): F32.1 - Major depressive disorder, single episode, moderate Plan Impression: a: Benign essential tremor, moderate b: Depression Rec: a: Taper off Inderal b: Start Venlafaxine 37.5mg one a day c: I plan to start Primidone too at next visit I discussed with the patient and her daughter that I believe her emotional and psychological problems are a bigger issue than the tremor itself and should be the top priority. I explained that stress and hormones make the tremor worse. I advised stopping the high-dose propranolol (Inderal) she is taking, as it is contraindicated with her breathing difficulties and can worsen depression. I provided a detailed tapering schedule to wean off this medication slowly due to the high dose. I informed them that I am prescribing venlafaxine (Effexor) to treat her mood first, starting at a low dose of 37.5 mg. I explained that this type of medicine is generally benign, not addictive, and takes four to eight weeks to become effective. We will not treat the tremor until her mood is more stable. I also am sending a referral for therapy. I requested she leave a message for the office in four weeks to report on her progress, which will guide dose adjustments for the venlafaxine. Orders: Referrals Psychiatry Referral F32.A - Depression, unspecified Medications: New propranolol 20 mg orally tid for 3 days, then bid for 3 days, then qd for 4 days; 20 tabs 0RF venlafaxine ER 37.5 mg PO BEDTIME 30 caps 1RF Discontinued propranolol ER (Inderal LA) Discontinued Reason: Doctor's Order 120 mg PO BEDTIME 30 caps 3RF Coding Level of Care Code New Pt Level 5 (30310) Diagnoses Essential tremor G25.0 Depression, unspecified depression type F32.A Depression Type: unspecified
--- OUTSIDE RECORDS SUMMARY | 2025-04-22 15:50 | XMS_ITS | Patient Health Record ---
Author Organization 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 Section Notes: Nonsmoker; no sig alcohol Problems Problem Type SNOMED Code ICD Code Onset Dates Problem Status W/U Status Risk Notes Problem Screening for malignant neoplasm of colon (053190814) Encounter for screening for malignant neoplasm of colon (Z12.11) Active confirmed Problem Preprocedural examination (526503559292836) Preprocedural examination (Z01.818) Active confirmed Plan Of Treatment Pending Test Test Name Order Date GI BIOPSY 03/07/2019 Future Test Test Name Order Date COLONOSCOPY 12/12/2018 Insurance Providers Payer Name Payer Address Payer Phone Subscriber Number Group Number Insured Name Patient Relationship to Insured Coverage Start Date Coverage End Date [facility] [address] [address] [place], [place] [phone] [id number] COLON, ELIDA Self - patient is the insured Medical (General) History Medical History History ICD Code Denies GA,DM,CVA,renal disease Asthma Neg. screening colonoscopy 02/2009 Back pain/knee pain Surgical History Surgery Date(Month/Year) Partial hysterectomy
--- OUTSIDE RECORDS SUMMARY | 2025-04-22 15:50 | XMS_ITS | Clinical Summary ---
Author Organization [facility] Address [address] [place] [id number] Phone Care Team Providers Care Digital Sales Director Name Role Phone Luna Talbot MD Primary Care Provider [phone] Dariela Lott MD Unavailable Allergies Active Allergy [...] breast with stage 2 alexander metastasis per [place] [employer] on Cancer 7th edition (N2) [...] Description 10/02/2025 2:00 PM EDT Office Visit [facility] [address] [place] [id number] Estephania Armstrong MD [address] [place] [address] [email or web address] Health Maintenance Due Date Last Done Comments [...] WELLSENSE NON NSPG PCP [facility] CONNECTORCARE DALLASENSE NON NSPG PCP [facility] CONNECTORCARE WELLSENSE NON NSPG PCP S[facility] CONNECTOR[facility] NON NSPG PCP [place] CLARITY CONNECTORCARE DALLASENSE NON NSPG PCP [place] [facility] CONNECTORCARE Care Teams Digital Sales Director Relationship Specialty Start Date End Date Luna Talbot MD [address] [place] [address] Drive [address] [place] [phone] PCP - General Internal Medicine 01/18/24 Dariela Lott MD [address] [place] [phone] 01/18/24 Additional Source Comments The information contained in this document represents components of the legal health record. It is not the complete legal health record.[facility]
== END 2025-04-22 15:38 | disposition home or self-care (01) ==
LOC: HO.HSM 15:00
PROVIDERS: PCP Internal Medicine; Visit Provider Psychiatry & Neurology Neurology
DX: G25.0 Essential tremor (principal); F32.1 Major depressive disorder, single episode, moderate
CPT/HCPCS: 99204

== ENCOUNTER → 2025-04-22 14:59 | Outpatient (BNVA) | payer OTHER, SELFPAY | PROVIDERS: PCP Internal Medicine; Visit Provider Psychiatry & Neurology Neurology | DX: G25.0 Essential tremor (principal); F32.1 Major depressive disorder, single episode, moderate | CPT/HCPCS: 99202 ==